=== PATIENT | male | born 1940 | race Caucasian/White ===

== ENCOUNTER → 2019-10-06 08:16 | Outpatient (BNVA) | payer MEDICARE, MEDICAID, SELFPAY | PROVIDERS: Family Provider Nurse Practitioner Family; PCP Nurse Practitioner Family; Visit Provider Nurse Practitioner | DX: M54.5 Low back pain (principal); G25.81 Restless legs syndrome; Z79.891 Long term (current) use of opiate analgesic | CPT/HCPCS: 99213 ==

== ENCOUNTER → 2019-10-09 08:43 | Outpatient (BNVA) | payer MEDICARE, MEDICAID, SELFPAY | PROVIDERS: Family Provider Nurse Practitioner Family; PCP Nurse Practitioner Family; Visit Provider Urology | DX: N40.1 Benign prostatic hyperplasia with lower urinary tract symptoms (principal); R39.14 Feeling of incomplete bladder emptying | CPT/HCPCS: 81001 ==

== ENCOUNTER 2019-10-19 10:20 | Outpatient (RCR) | payer MEDICARE, MEDICAID, SELFPAY | END 2019-10-27 23:59 | disposition home or self-care (01) | LOC: SPT 10:20 | PROVIDERS: Family Provider Nurse Practitioner Family; PCP Nurse Practitioner Family; Visit Provider Chiropractor | DX: M54.5 Low back pain (principal) | CPT/HCPCS: 97110; 97162 ==

== ENCOUNTER 2019-10-28 06:00 | Outpatient (RCR) | payer MEDICARE, MEDICAID, SELFPAY | END 2019-11-25 23:59 | disposition home or self-care (01) | LOC: SPT 06:00 | PROVIDERS: Family Provider Nurse Practitioner Family; PCP Nurse Practitioner Family; Visit Provider Chiropractor | DX: M54.5 Low back pain (principal) | CPT/HCPCS: 97110 ==

== ENCOUNTER → 2019-11-27 09:33 | Outpatient (BNVA) | payer MEDICARE, MEDICAID, SELFPAY | PROVIDERS: Family Provider Nurse Practitioner Family; PCP Nurse Practitioner Family; Visit Provider Nurse Practitioner Family | DX: Z79.01 Long term (current) use of anticoagulants (principal); E11.9 Type 2 diabetes mellitus without complications | CPT/HCPCS: 80048; 82044; 83036; 85025 ==

== ENCOUNTER → 2019-12-01 09:22 | Outpatient (BNVA) | payer MEDICARE, MEDICAID, SELFPAY | PROVIDERS: Family Provider Nurse Practitioner Family; PCP Nurse Practitioner Family; Visit Provider Anesthesiology | DX: G89.29 Other chronic pain (principal); M47.819 Spondylosis without myelopathy or radiculopathy, site unspecified; M51.36 Other intervertebral disc degeneration, lumbar region; M47.22 Other spondylosis with radiculopathy, cervical region; G25.81 Restless legs syndrome; Z79.891 Long term (current) use of opiate analgesic | CPT/HCPCS: 99214 ==

== ENCOUNTER → 2020-04-10 08:40 | Outpatient (BNVA) | payer MEDICARE, MEDICAID, SELFPAY | PROVIDERS: Family Provider Nurse Practitioner Family; PCP Nurse Practitioner Family; Visit Provider Anesthesiology | DX: G89.29 Other chronic pain (principal); M51.36 Other intervertebral disc degeneration, lumbar region; M47.819 Spondylosis without myelopathy or radiculopathy, site unspecified; G25.81 Restless legs syndrome; M47.22 Other spondylosis with radiculopathy, cervical region; Z79.891 Long term (current) use of opiate analgesic | CPT/HCPCS: 99214 ==

== ENCOUNTER → 2020-05-14 09:31 | Outpatient (BNVA) | payer MEDICARE, MEDICAID, SELFPAY | PROVIDERS: Family Provider Nurse Practitioner Family; PCP Nurse Practitioner Family; Visit Provider Nurse Practitioner Family | DX: E11.22 Type 2 diabetes mellitus with diabetic chronic kidney disease (principal); I12.9 Hypertensive chronic kidney disease with stage 1 through stage 4 chronic kidney disease, or unspecified chronic kidney disease; N18.9 Chronic kidney disease, unspecified; Z79.899 Other long term (current) drug therapy | CPT/HCPCS: 80053; 82043; 83036 ==

== ENCOUNTER → 2020-07-29 08:24 | Outpatient (BNVA) | payer MEDICARE, MEDICAID, SELFPAY | PROVIDERS: Family Provider Nurse Practitioner Family; PCP Nurse Practitioner Family; Visit Provider Nurse Practitioner Family | DX: E11.22 Type 2 diabetes mellitus with diabetic chronic kidney disease (principal); I12.9 Hypertensive chronic kidney disease with stage 1 through stage 4 chronic kidney disease, or unspecified chronic kidney disease; N18.9 Chronic kidney disease, unspecified | CPT/HCPCS: 80048; 80061 ==

== ENCOUNTER → 2020-10-09 11:54 | Outpatient (BNVA) | payer MEDICARE, MEDICAID, SELFPAY | PROVIDERS: Family Provider Nurse Practitioner Family; PCP Nurse Practitioner Family; Visit Provider Nurse Practitioner Family | DX: I10 Essential (primary) hypertension (principal); Z79.899 Other long term (current) drug therapy | CPT/HCPCS: 80048; 81003; 83036 ==

== ENCOUNTER → 2021-06-17 00:01 | Outpatient (BNVA) | payer MEDICARE, MEDICAID, SELFPAY | PROVIDERS: Family Provider Nurse Practitioner Family; PCP Nurse Practitioner Family; Visit Provider Nurse Practitioner Family | DX: E11.9 Type 2 diabetes mellitus without complications (principal); Z86.31 Personal history of diabetic foot ulcer | CPT/HCPCS: 80053; 80061; 83036; 85025 ==

== ENCOUNTER → 2021-11-25 10:00 | Outpatient (BNVA) | payer MEDICARE, MEDICAID, SELFPAY | PROVIDERS: Family Provider Nurse Practitioner Family; PCP Nurse Practitioner Family; Visit Provider Internal Medicine Cardiovascular Disease | DX: E11.22 Type 2 diabetes mellitus with diabetic chronic kidney disease (principal); I12.9 Hypertensive chronic kidney disease with stage 1 through stage 4 chronic kidney disease, or unspecified chronic kidney disease; Z95.0 Presence of cardiac pacemaker; E78.2 Mixed hyperlipidemia; I48.11 Longstanding persistent atrial fibrillation | CPT/HCPCS: 99214 ==

== ENCOUNTER → 2021-12-08 08:35 | Outpatient (BNVA) | payer MEDICARE, MEDICAID, SELFPAY | PROVIDERS: Family Provider Nurse Practitioner Family; PCP Nurse Practitioner Family; Visit Provider Nurse Practitioner Family | DX: I10 Essential (primary) hypertension (principal); R53.83 Other fatigue; R05.3 Chronic cough; N40.1 Benign prostatic hyperplasia with lower urinary tract symptoms; E11.51 Type 2 diabetes mellitus with diabetic peripheral angiopathy without gangrene; E11.65 Type 2 diabetes mellitus with hyperglycemia; G47.34 Idiopathic sleep related nonobstructive alveolar hypoventilation; G47.33 Obstructive sleep apnea (adult) (pediatric) | CPT/HCPCS: 80053; 83036; 85025 ==

== ENCOUNTER 2022-01-25 14:01 | Emergency (ER) | payer MEDICARE, MEDICAID, SELFPAY ==
[2022-01-25] VITALS (7 sets, daily range): BP systolic 148–180; BP diastolic 51–100; PULSE 84–94; RESP 14–18; TEMP 36.6; O2SAT 95–97; BMI 30.9
--- NOTE | 2022-01-25 14:04 | ED_ITS ---
HPI - General Adult General: Chief complaint: Chest Pain Stated complaint: GENERAL UNWELLNESS Time Seen by Provider: 01/25/22 14:03 History of Present Illness: Mr. Casey is an 81-year-old gentleman with significant past medical history of hypertension, hyperlipidemia, atrial fibrillation, diabetes, pacemaker who presents to the emergency department due to generalized symptoms. Onset of symptoms was subacute approximately 10 days ago. He endorses generalized unwell feeling and generalized weakness. Additionally he has had multiple episodes of loose stools and poor p.o. intake. He has had progressive worsening of symptoms that are now moderate to severe. He does note that he started metformin 2 or 3 weeks ago. Today he had an episode of chest discomfort after eating and laying down which was substernal and then now mild with generalized ache/pressure. No other specific changes in health, exacerbating, or alleviating factors identified. Onset (ago): day(s) Severity: moderate and severe Quality: aching Associated symptoms: Reports chest pain Review of Systems General: Reports: 10 or more systems reviewed and unremarkable except in HPI and below Card: Reports: chest pain [facility] ED PFSH: Medical History Atrial fibrillation Benign prostatic hyperplasia with incomplete bladder emptying Chronic cervical radiculopathy Chronic low back pain Chronic lumbar radiculopathy DDD (degenerative disc disease), lumbar Dizziness Encounter for long-term opiate analgesic use Encounter for long-term opiate analgesic use Facet joint disease Fibromyalgia Hx of diabetic foot ulcer Hyperlipidemia Hypertension Long-term use of high-risk medication continue to monitor use Pacemaker Restless legs syndrome Type 2 DM with CKD and hypertension Uncontrolled type 2 DM with peripheral circulatory disorder Surgical History History of permanent cardiac pacemaker placement History of umbilical hernia repair S/P cardiac pacemaker procedure S/P laser cataract surgery 2 YEARS AGO BILAT Family History Father , 80-house fire No problems noted. Mother , 70 Cancer Brother Cancer Lung disease Chronic kidney disease (CKD) Sister Cancer CAD (coronary artery disease) Diabetes Daughter Diabetes Family/Other Diabetes Denies family history of Clotting disorder Dementia Suicide Anesthesia complication Bleeding disorder Stroke Social History Smoking and tobacco status: never smoked Second hand smoke exposure: No Alcohol intake: never Marital status: / Current occupational status: retired History of recent travel: No Physical Exam Const: COMMON NORMALS: alert GENERAL APPEARANCE: cooperative, well developed and ill appearing (Somewhat) HENMT: COMMON NORMALS: normocephalic and atraumatic HEAD & SCALP: normoceph alic and atraumatic Eye: COMMON NORMALS: conjunctivae normal CONJUNCTIVA: Yes conjunctivae normal SCLERA: sclerae normal Neck/C-Spine: COMMON NORMALS: supple GENERAL: Yes trachea midline Resp: COMMON NORMALS: clear to auscultation bilaterally EFFORT & INSPECTION: Yes able to speak in complete sentences AUSCULTATION: clear to auscultation bilaterally Cardio: COMMON NORMALS: regular rate and regular rhythm RATE: regular rate RHYTHM: regular rhythm GI: COMMON NORMALS: Soft to palpation PALPATION: Yes Soft to palpation, Yes Tenderness to palpation present (GI), No Guarding due to palpation present (GI) and No Rigid due to palpation PERCUSSION: normal to percussion Extremity: GENERAL: Yes normal exam except as noted and No edema Neuro: COMMON NORMALS: moves all extremities SENSORIUM/ORIENTATION: Yes alert and No Orientation impaired Psych: COMMON NORMALS: mental status grossly normal and Normal thought process present THOUGHT PROCESS: Normal thought process present Course ED course: - Patient was seen and evaluated by me at bedside - Patient placed on cardiac monitors, IV access obtained - Initial evaluation notable for exam as above. EKG reviewed with sinus rhythm, first-degree AV block, no STEMI. - Labs and xrays personally interpreted by me -Fluids given - Labs notable for mild leukocytosis, likely hemoconcentration/dehydration. Elevated glucose without evidence of DKA. Delta troponin negative. - Imaging notable for no lobar consolidation or pneumothorax. Head CT negative for acute intracranial hemorrhage or mass. CT abdomen pelvis with mild lymphadenopathy, discussed with patient. No evidence of obvious cause of patient's other symptoms. - Upon serial reexamination after treatment the patient was improved. He tolerated p.o. intake. - Based on patient history, evaluation, and testing as interpreted the most likely cause of the patient's condition is unclear. Given temporal correlation and may be related to initiation of metformin as GI symptoms are a common side effect. We will plan to hold for now and refer to primary care provider for additional consideration, patient instructed to continue his other oral diabetic medications - The results of ED evaluation were discussed with the patient including prescriptions and/or symptomatic cares (if applicable) including appropriate and responsible use, followup plan, and return precautions. The patient verbalized understanding and felt safe for discharge. - Patient discharged in satisfactory condition. Note: Click bubbles or prepopulated brantley in note writing are used for assistance with data collection and billing and are inherently more limited than narrative and other text portions of this note. Please use narrative for additional clinical history and defer to narrative/free test for any case of contradictory information. If information appears in only free text or click bubble it should be considered present or absent as reported. Please contact note investigative writer for clarifications of clinical information or contradictory information. MDM is a brief summary, contradictory or erroneous seeming information should be clarified and full note should be reviewed. Vital Signs: Vital signs: Vital Signs Temperature 98 F 01/25/22 16:43 Pulse Rate 91 01/25/22 19:13 Respiratory Rate 17 01/25/22 19:13 Blood Pressure 160/100 01/25/22 19:13 Pulse Oximetry 96 01/25/22 19:13 MDM - General Adult Medical Decision Making 81-year-old gentleman with complex past medical history presenting to the emergency department due to recurrent diarrhea and abdominal discomfort with radiation to the chest. Temporally correlates with initiation of metformin. Mild dehydration noted on laboratory studies with no other acute process to explain symptoms. Satisfactory for close outpatient follow-up. Medical Records I reviewed the patient's medical records. Lab Data I reviewed the patient's lab results. : 01/25/22 14:05 01/25/22 14:05 Radiology Impressions Chest X-Ray 01/25/22 14:17 IMPRESSION: No acute cardiopulmonary abnormality identified. Abdomen/Pelvis CT 01/25/22 15:23 IMPRESSION: 1. Nonspecific central mesenteric lymphadenopathy, largest lymph node measuring 2.1 cm short axis. Differential diagnosis includes neoplastic and infectious/inflammatory etiologies. Comparison with prior studies recommended, if available. Clinical correlation is recommended. 2. Bilateral inguinal hernias. 3. Left renal benign cyst. No follow-up imaging is recommended. 4. Chronic calcific prostatitis. 5. Possible pulmonary interstitial fibrosis. COMMENTS: Consistent with the [employer]'s Incidental Findings Committee white paper (J Am Natalia Radiol 2018): Any incidental renal lesion less than 1 cm or classified as too small to characterize, or any incidental cystic renal lesion characterized as simple-appearing, is likely benign. No follow-up imaging is recommended for these lesions per consensus recommendations based on imaging criteria. Head CT 01/25/22 15:23 IMPRESSION: No acute intracranial abnormality. Laboratory Results WBC 10.9 10^3/uL (4.0-10.0) H 01/25/22 14:05 RBC 5.01 10^6/uL (4.1-5.3) 01/25/22 14:05 Hgb 14.9 g/dL (11.7-16.6) 01/25/22 14:05 Hct 44.3 % (42.0-52.0) 01/25/22 14:05 MCV 88.4 fl (80-94) 01/25/22 14:05 MCH 29.7 pg (28.0-34.0) 01/25/22 14:05 MCHC 33.6 g/dL (30.0-36.0) 01/25/22 14:05 RDW 12.7 % (12.1-15.1) 01/25/22 14:05 Plt Count 309 10^3/cmm (130-400) 01/25/22 14:05 MPV 10.5 fL (7.4-10.4) H 01/25/22 14:05 Neut % (Auto) 68.1 % 01/25/22 14:05 Lymph % (Auto) 20.3 % 01/25/22 14:05 Mcdonald % (Auto) 7.3 % 01/25/22 14:05 Eos % (Auto) 3.1 % 01/25/22 14:05 Baso % (Auto) 0.9 % 01/25/22 14:05 Neut # (Auto) 7.42 10^3/uL (1.8-7.7) 01/25/22 14:05 Lymph # (Auto) 2.2 10^3/uL (0.8-4.8) 01/25/22 14:05 Mcdonald # (Auto) 0.8 10^3/uL (0.2-0.9) 01/25/22 14:05 Eos # (Auto) 0.3 10^3/uL (0.0-0.8) 01/25/22 14:05 Baso # (Auto) 0.1 10^3/uL (0.0-0.1) 01/25/22 14:05 Nucleated RBC % (auto) 0 % 01/25/22 14:05 Nucleated RBCs # 0.0 /100WBC 01/25/22 14:05 Sodium 133 mmol/L (136-145) L 01/25/22 14:05 Potassium 4.2 mmol/L (3.5-5.1) 01/25/22 14:05 Chloride 98 mmol/L (98-107) 01/25/22 14:05 Carbon Dioxide 22 mmol/L (22-29) 01/25/22 14:05 Anion Gap 17.2 (5-19) 01/25/22 14:05 BUN 11 mg/dL (8-23) 01/25/22 14:05 Creatinine 1.2 mg/dL (0.7-1.2) 01/25/22 14:05 GFR Calculation Not Reportable 01/25/22 14:05 Glucose 356 mg/dL (65-115) H 01/25/22 14:05 POC Glucose 342 mg/dL (70-110) H 01/25/22 14:11 Calculated Osmolality 290 mOsm/kg (285-295) 01/25/22 14:05 Lactic Acid 1.8 mmol/L (0.5-2.2) 01/25/22 15:25 Calcium 8.2 mg/dL (8.5-10.5) L 01/25/22 14:05 Total Bilirubin 0.5 mg/dL (0.15-1.2) 01/25/22 14:05 AST 28 U/L (0-40) 01/25/22 14:05 ALT 26 U/L (0-41) 01/25/22 14:05 Alkaline Phosphatase 101 IU/L (40-130) 01/25/22 14:05 Troponin T Baseline 32 ng/L (0-15) H 01/25/22 14:05 Troponin T 120 Minute 26.25 ng/L (0-15) H 01/25/22 16:00 Delta Troponin T -5.75 ABS# (0-10) L 01/25/22 16:00 NT-Pro-B Natriuret Pep 142 pg/mL (0-450) 01/25/22 14:05 Total Protein 6.6 g/dL (6.6-8.7) 01/25/22 14:05 Albumin 4.3 g/dL (3.5-5.2) 01/25/22 14:05 Globulin 2.3 g/dL (1.3-4.6) 01/25/22 14:05 Lipase 27 U/L (13-60) 01/25/22 14:05 Urine Color Straw (Yellow) 01/25/22 17:00 Urine Appearance Clear (CLEAR) 01/25/22 17:00 Urine pH 7 (5-7) 01/25/22 17:00 Ur Specific [place] 1.010 (1.005-1.030) 01/25/22 17:00 Urine Protein Neg (Negative) 01/25/22 17:00 Urine Glucose (UA) 4+ (Normal) H 01/25/22 17:00 Urine Ketones Negative (Negative) 01/25/22 17:00 Urine Blood Neg (Negative) 01/25/22 17:00 Urine Nitrate Negative (Negative) 01/25/22 17:00 Urine Bilirubin Neg (Negative) 01/25/22 17:00 Urine Urobilinogen Norm mg/dL (Negative) 01/25/22 17:00 Ur Leukocyte Esterase Negative (Negative) 01/25/22 17:00 Coronavirus 229E (PCR) Not detected (NOT DETECT) 01/25/22 17:07 SARS-CoV-2 (PCR) Not detected (NOT DETECT) 01/25/22 17:07 Discharge Plan Discharge Patient Disposition: Home Clinical Impression: Malaise and fatigue, Chest pain, Diarrhea Condition: Stable Prescriptions: No Action tamsulosin [Flomax] 0.4 mg capsule 0.4 mg PO DAILY Qty: 30 12RF (DME) True Metrix Glucose Test Strip Strip See Rx Instructions .ROUTE .MEDSUPPLY Qty: 100 0RF Rx Instructions: test once daily nitroglycerin [Nitrostat] 0.4 mg tablet, sublingual 0.4 mg SUBLINGUAL Q5M PRN (Reason: chest pain) Qty: 50 2RF amlodipine 10 mg tablet 10 mg PO DAILY Qty: 100 3RF Rx Instructions: Dose increased hydralazine 50 mg tablet 50 mg PO BID Qty: 60 5RF Xarelto 20 mg tablet 20 mg PO DAILY Qty: 90 3RF pantoprazole 40 mg tablet,delayed release (DR/EC) See Rx Instructions .ROUTE .COMPLEX Qty: 90 0RF Dose Instruction: Take 1 tablet by mouth once daily Rx Instructions: Take 1 tablet by mouth once daily carbidopa-levodopa 25-250 mg tablet 1 tab PO DAILY 0RF isosorbide mononitrate 120 mg tablet extended release 24 hr 120 mg PO DAILY 0RF glimepiride 4 mg tablet 8 mg PO DAILY 0RF Discharge Orders: Discharge ED (Routine); Ordered 01/25/22 Ordered By: Biju Topete Referrals: Lucy Ny FNP [Primary Care Provider] - Discharge Diet: Advance as tolerated Discharge Activity: Increase activity as tolerated Patient Instructions: Diarrhea - Adult, Chest Pain (ED), Abdominal Pain (ED), Fatigue (ED) Activity Restrictions/Additional Instructions: Thank you for visiting the emergency department. You were seen and evaluated for generalized weakness and unwell feeling. The exact cause of your symptoms i s unclear. It is possible that you have are having GI symptoms related to a side effect of metformin. Please do not take this medication and call your primary care provider in the morning for further medication adjustment. Please follow-up with your primary care provider regarding your other symptoms. Return to the emergency department for worsening symptoms or anything else that you are concerned about and feel needs emergency department evaluation. Coding Level of Care Code ED Gauge Controller for Guerrero Menchaca
[2022-01-25 14:14] LABS: Glucose Point of Care 342 mg/dL (70-110)
--- NOTE | 2022-01-25 14:17 | XRR_ITS ---
PROCEDURE INFORMATION: Exam: XR Chest Exam date and time: 01/25/2022 2:28 PM Age: 81 years old Clinical indication: Pain; Chest pressure; Additional info: Chest pain TECHNIQUE: Imaging protocol: XR of the chest. Views: 1 view. Other technique: Frontal portable upright view of the chest. COMPARISON: CR Chest 2 views* [id number] 10/04/2017 10:13 AM FINDINGS: Tubes, catheters and devices: A dual lead left subclavian permanent pacemaker is present. The right atrial and right ventricular leads appear to be in good position. EKG leads are present overlying the chest. Lungs: The lungs are clear bilaterally. The pulmonary vasculature is normal. Pleural spaces: No pleural effusion. No pneumothorax. Heart/Mediastinum: The heart is normal in size and contour. Mediastinum: Stable. Bones/joints: Stable. XR/XR chest 1V portable [id number] IMPRESSION: No acute cardiopulmonary abnormality identified.
[2022-01-25 14:41] LABS: Basophils # 0.1 10^3/uL (0.0-0.1); Basophils % 0.9 %; Eosinophils # 0.3 10^3/uL (0.0-0.8); Eosinophils % 3.1 %; Hematocrit 44.3 % (42.0-52.0); Hemoglobin 14.9 g/dL (11.7-16.6); Lymphocytes # 2.2 10^3/uL (0.8-4.8); Lymphocytes % 20.3 %; Mean Corpuscular HGB Conc 33.6 g/dL (30.0-36.0); Mean Corpuscular Hemoglobin 29.7 pg (28.0-34.0); Mean Corpuscular Volume 88.4 fl (80-94); Mean Platelet Volume 10.5 fL (7.4-10.4); Monocytes # 0.8 10^3/uL (0.2-0.9); Monocytes % 7.3 %; Neutrophils # 7.42 10^3/uL (1.8-7.7); Neutrophils % 68.1 %; Nucleated Red Blood Cells % 0 %; Platelet Count 309 10^3/cmm (130-400); Red Blood Count 5.01 10^6/uL (4.1-5.3); Red Cell Distribution Width 12.7 % (12.1-15.1); White Blood Count 10.9 10^3/uL (4.0-10.0)
[2022-01-25 14:53] LABS: Troponin(5th) Baseline 32 ng/L (0-15)
[2022-01-25 15:00] LABS: Alanine Aminotransferase 26 U/L (0-41); Albumin Level 4.3 g/dL (3.5-5.2); Alkaline Phosphatase 101 IU/L (40-130); Aspartate Amino Transferase 28 U/L (0-40); Blood Urea Nitrogen 11 mg/dL (8-23); Calcium 8.2 mg/dL (8.5-10.5); Carbon Dioxide 22 mmol/L (22-29); Chloride 98 mmol/L (98-107); Globulin 2.3 g/dL (1.3-4.6); Glucose 356 mg/dL (65-115); Lipase 27 U/L (13-60); NT Pro B Type Natriuretic Pept 142 pg/mL (0-450); Osmolality Calculated 290 mOsm/kg (285-295); Sodium 133 mmol/L (136-145); Total Bilirubin 0.5 mg/dL (0.15-1.2); Total Protein 6.6 g/dL (6.6-8.7)
[2022-01-25 15:21] LABS: Anion Gap 17.2 (5-19); Potassium 4.2 mmol/L (3.5-5.1)
--- NOTE | 2022-01-25 15:23 | CTR_ITS ---
PROCEDURE INFORMATION: Exam: CT Abdomen And Pelvis With Contrast Exam date and time: 01/25/2022 3:49 PM Age: 81 years old Clinical indication: Other: N/v/d; Prior surgery; Surgery type: Hernia TECHNIQUE: Imaging protocol: Computed tomography of the abdomen and pelvis with contrast. Radiation optimization: All CT scans at this facility use at least one of these dose optimization techniques: automated exposure control; mA and/or kV adjustment per patient size (includes targeted exams where dose is matched to clinical indication); or iterative reconstruction. Contrast material: VISI 320; Contrast volume: 95 ml; Contrast route: INTRAVENOUS (IV); COMPARISON: CR Hips Angel 5v wwo Pelvis* [id number] 10/04/2015 9:58 AM RADIATION DOSE METRICS: Total DLP (mGy-cm): 1890.63 FINDINGS: Tubes, catheters and devices: A dual lead pacemaker is present. Lungs: Peripheral pulmonary basilar interlobular septal thickening with architectural distortion and mild cicatricial bronchiectasis. Liver: Normal. No mass. Gallbladder and bile ducts: Normal. No calcified stones. No ductal dilation. Pancreas: Moderate pancreatic atrophy. Spleen: Normal. No splenomegaly. Adrenal glands: Normal. No mass. Kidneys and ureters: Left renal 15.8 mm benign cyst. Stomach and bowel: Unremarkable. No obstruction. No mucosal thickening. Appendix: The vermiform appendix is not identified on this examination. There is, however, no pericecal abnormality to suggest appendicitis. Intraperitoneal space: No free air. No significant fluid collection. Vasculature: Moderate abdominal aortic atherosclerotic calcification without aneurysm. The iliac arteries show mild bilateral atherosclerotic calcifications without evidence of aneurysm. Lymph nodes: Nonspecific central mesenteric lymphadenopathy, largest lymph node measuring 2.1 cm short axis. Urinary bladder: Unremarkable as visualized. Reproductive: The prostate gland demonstrates nonspecific parenchymal calcifications. Bones/joints: Degenerative disc disease at lower lumbar spine disk levels, with mild dextroscoliosis. L5-S1 spondylosis with bilateral neural foraminal stenosis. Bilateral lower lumbar facet primary osteoarthritis. Severe L3-L4 spinal stenosis. Mild chronic anterior L4 vertebral body compression deformity. Soft tissues: Bilateral inguinal hernias, larger on the left (3.6 x 5.1 cm transverse dimension, incompletely imaged inferiorly), are present containing only intra-abdominal fat. CT/CT abdomen pelvis w con* [id number] IMPRESSION: 1. Nonspecific central mesenteric lymphadenopathy, largest lymph node measuring 2.1 cm short axis. Differential diagnosis includes neoplastic and infectious/inflammatory etiologies. Comparison with prior studies recommended, if available. Clinical correlation is recommended. 2. Bilateral inguinal hernias. 3. Left renal benign cyst. No follow-up imaging is recommended. 4. Chronic calcific prostatitis. 5. Possible pulmonary interstitial fibrosis. COMMENTS: Consistent with the [place] [employer]'s Incidental Findings Committee white paper (J Am Natalia Radiol 2018): Any incidental renal lesion less than 1 cm or classified as too small to characterize, or any incidental cystic renal lesion characterized as simple-appearing, is likely benign. No follow-up imaging is recommended for these lesions per consensus recommendations based on imaging criteria.
--- NOTE | 2022-01-25 15:23 | CTR_ITS ---
PROCEDURE INFORMATION: Exam: CT Head Without Contrast Exam date and time: 01/25/2022 3:45 PM Age: 81 years old Clinical indication: Altered mental status/memory loss; Confusion or disorientation; Patient HX: Ams/light headed; Additional info: Weakness, lightheaded, ? confusion TECHNIQUE: Imaging protocol: Computed tomography of the head without contrast. Radiation optimization: All CT scans at this facility use at least one of these dose optimization techniques: automated exposure control; mA and/or kV adjustment per patient size (includes targeted exams where dose is matched to clinical indication); or iterative reconstruction. COMPARISON: CT head wo con* [id number] 04/06/2015 10:09 PM RADIATION DOSE METRICS: Total DLP (mGy-cm): 949.5 FINDINGS: Brain: Age-appropriate cerebral atrophy. Ventricles: No hydrocephalus or evidence of increased intracranial pressure. Leftward nasal septal deviation. Paranasal sinuses: Visualized sinuses are unremarkable. No fluid levels. Mastoid air cells: Visualized mastoid air cells are well aerated. Orbital cavities: Bilateral prior cataract surgery with lens replacements. Vasculature: Atherosclerotic calcifications are present involving the carotid artery siphons bilaterally and the left vertebral artery. Bones/joints: No acute abnormality. No acute fracture. Soft tissues: Unremarkable. CT/CT head wo con* [id number] IMPRESSION: No acute intracranial abnormality.
[2022-01-25] MEDS: iodixanol 320 mg/mL 100mL Btl IV (15:46)
[2022-01-25 15:55] LABS: Lactic Sepsis W/Reflex 1.8 mmol/L (0.5-2.2)
--- NOTE | 2022-01-25 16:17 | ECG_ITS ---
[facility] Test Date: 2022-01-25 Pat Name: Timothy Casey Department: Room: Gender: Male Stogy Maker: : 1940 Requested By: Biju Topete Order Number: [id number] Alberto MD: Jaison Dunacn M.D. Measurements Intervals [place] Rate: 94 P: 60 TX: 222 QRS: 76 QRSD: 114 T: 53 QT: 357 QTc: 447 Interpretive Statements SINUS RHYTHM WITH FIRST DEGREE AV BLOCK MODERATE INTRAVENTRICULAR CONDUCTION DELAY [110+ ms QRS DURATION] NONSPECIFIC T-WAVE ABNORMALITY Compared to ECG 10/02/2017 19:27:28 First degree AV block now present Intraventricular conduction delay now present T-wave abnormality now present Electronically Signed On 01-25-2022 18:08:05 CDT by Jaison Duncan M.D. [id number]
[2022-01-25 16:39] LABS: Troponin 5 2HR 26.25 ng/L (0-15)
[2022-01-25 16:40] LABS: Troponin 5 2HR Delta -5.75 ABS# (0-10)
[2022-01-25] MEDS: sodium chloride 0.9% 1,000 ML 999 ML IV (16:45)
[2022-01-25 17:04] LABS: Add Urine Microscopic? NO; Charge for UA Resulting for Rev
[2022-01-25 17:10] LABS: Bilirubin Urine Neg (Negative); Blood Urine Neg (Negative); Glucose Urine UA 4+ (Normal); Ketones Urine Negative (Negative); Leukocyte Esterase Urine Negative (Negative); Nitrate Urine Negative (Negative); Protein Urine Neg (Negative); Urine Appearance Clear (CLEAR); Urine Color Straw (Yellow); Urobilinogen Urine Norm (Negative); pH Urine 7 (5-7)
[2022-01-25 18:53] LABS: Adenovirus Not Detected (NOT DETECT); Chlamydia Pneumoniae Not Detected (NOT DETECT); Coronavirus 229E,HKU1,NL63,OC4 Not Detected (NOT DETECT); Human Metapneumovirus Not Detected (NOT DETECT); Human Rhinovirus/Enterovirus Not Detected (NOT DETECT); Influenza A Not Detected (NOT DETECT); Influenza A H1 Not Detected (NOT DETECT); Influenza A H1-2009 Not Detected (NOT DETECT); Influenza A H3 Not Detected (NOT DETECT); Influenza B Not Detected (NOT DETECT); Mycoplasma Pneumoniae Not Detected (NOT DETECT); Parainfluenza Virus Type 1 Not Detected (NOT DETECT); Parainfluenza Virus Type 2 Not Detected (NOT DETECT); Parainfluenza Virus Type 3 Not Detected (NOT DETECT); Parainfluenza Virus Type 4 Not Detected (NOT DETECT); Respiratory Syncytial Virus A Not Detected (NOT DETECT); Respiratory Syncytial Virus B Not Detected (NOT DETECT); SARS-COV-2 Not Detected (NOT DETECT)
--- NOTE | 2022-01-25 20:17 | ECG_ITS ---
[facility] Test Date: 2022-01-25 Pat Name: Timothy Casey Department: Room: Gender: Male Commodities Manager: : 1940 Requested By: Biju Topete Order Number: [id number] Alberto MD: Jaison Duncan M.D. Measurements Intervals [place] Rate: 81 P: 75 SD: 224 QRS: 87 QRSD: 108 T: 90 QT: 381 QTc: 443 Interpretive Statements SINUS RHYTHM WITH SINUS ARRHYTHMIA WITH FIRST DEGREE AV BLOCK NONSPECIFIC T-WAVE ABNORMALITY Compared to ECG 01/25/2022 14:43:23 Intraventricular conduction delay no longer present T-wave abnormality still present Electronically Signed On 01-26-2022 16:33:55 CDT by Jaison Duncan M.D. [email or web address] [id number]
== END 2022-01-25 19:13 | disposition home or self-care (01) ==
PROVIDERS: Emergency Provider Emergency Medicine; PCP Nurse Practitioner Family
DX: R07.9 Chest pain, unspecified (principal); R19.7 Diarrhea, unspecified; R53.81 Other malaise; R53.83 Other fatigue; E78.5 Hyperlipidemia, unspecified; I12.9 Hypertensive chronic kidney disease with stage 1 through stage 4 chronic kidney disease, or unspecified chronic kidney disease; E11.22 Type 2 diabetes mellitus with diabetic chronic kidney disease; N18.9 Chronic kidney disease, unspecified; I48.91 Unspecified atrial fibrillation; Z79.899 Other long term (current) drug therapy; Z95.0 Presence of cardiac pacemaker
CPT/HCPCS: 36416; 70450; 71045; 74177; 80053; 81003; 82962; 83605; 83690; 83880; 84484; 85025; 87040; 87635; 93005; 96360; 99284; J7030; Q9967

== ENCOUNTER → 2022-01-29 11:38 | Outpatient (BNVA) | payer MEDICARE, MEDICAID, SELFPAY | PROVIDERS: PCP Nurse Practitioner Family; Visit Provider Nurse Practitioner Family | DX: E11.22 Type 2 diabetes mellitus with diabetic chronic kidney disease (principal); I12.9 Hypertensive chronic kidney disease with stage 1 through stage 4 chronic kidney disease, or unspecified chronic kidney disease; E11.51 Type 2 diabetes mellitus with diabetic peripheral angiopathy without gangrene; E11.65 Type 2 diabetes mellitus with hyperglycemia | CPT/HCPCS: 82962 ==

== ENCOUNTER → 2022-02-16 11:36 | Outpatient (BNVA) | payer MEDICARE, MEDICAID, SELFPAY | PROVIDERS: PCP Nurse Practitioner Family; Visit Provider Nurse Practitioner Family | DX: I10 Essential (primary) hypertension (principal); D72.829 Elevated white blood cell count, unspecified; E11.51 Type 2 diabetes mellitus with diabetic peripheral angiopathy without gangrene; E11.65 Type 2 diabetes mellitus with hyperglycemia | CPT/HCPCS: 80053; 85025 ==

== ENCOUNTER → 2022-03-05 17:10 | Outpatient (BNVA) | payer MEDICARE, MEDICAID, SELFPAY | PROVIDERS: PCP Nurse Practitioner Family; Visit Provider Internal Medicine Cardiovascular Disease | DX: Z45.010 Encounter for checking and testing of cardiac pacemaker pulse generator [battery] (principal) ==

== ENCOUNTER → 2022-04-01 11:01 | Outpatient (BNVA) | payer MEDICARE, MEDICAID, SELFPAY | PROVIDERS: PCP Nurse Practitioner Family; Visit Provider Nurse Practitioner Family | DX: E11.22 Type 2 diabetes mellitus with diabetic chronic kidney disease (principal); I12.9 Hypertensive chronic kidney disease with stage 1 through stage 4 chronic kidney disease, or unspecified chronic kidney disease; E11.51 Type 2 diabetes mellitus with diabetic peripheral angiopathy without gangrene; E11.65 Type 2 diabetes mellitus with hyperglycemia | CPT/HCPCS: 83036 ==

== ENCOUNTER → 2022-05-26 09:39 | Outpatient (BNVA) | payer MEDICARE, MEDICAID, SELFPAY | PROVIDERS: PCP Nurse Practitioner Family; Visit Provider Internal Medicine Cardiovascular Disease | DX: I48.11 Longstanding persistent atrial fibrillation (principal); I12.9 Hypertensive chronic kidney disease with stage 1 through stage 4 chronic kidney disease, or unspecified chronic kidney disease; E11.22 Type 2 diabetes mellitus with diabetic chronic kidney disease; N18.9 Chronic kidney disease, unspecified; Z79.84 Long term (current) use of oral hypoglycemic drugs; Z95.0 Presence of cardiac pacemaker; E78.2 Mixed hyperlipidemia | CPT/HCPCS: 99214 ==

== ENCOUNTER → 2022-07-07 09:57 | Outpatient (BNVA) | payer MEDICARE, MEDICAID, SELFPAY | PROVIDERS: PCP Nurse Practitioner Family; Visit Provider Nurse Practitioner Family | DX: E11.22 Type 2 diabetes mellitus with diabetic chronic kidney disease (principal); I12.9 Hypertensive chronic kidney disease with stage 1 through stage 4 chronic kidney disease, or unspecified chronic kidney disease; Z79.01 Long term (current) use of anticoagulants; I10 Essential (primary) hypertension; E11.51 Type 2 diabetes mellitus with diabetic peripheral angiopathy without gangrene; E11.65 Type 2 diabetes mellitus with hyperglycemia | CPT/HCPCS: 80053; 83036; 85025 ==

== ENCOUNTER → 2022-07-16 10:15 | Outpatient (BNVA) | payer MEDICARE, MEDICAID, SELFPAY | PROVIDERS: PCP Nurse Practitioner Family; Visit Provider Nurse Practitioner Family | DX: E78.2 Mixed hyperlipidemia (principal); E11.51 Type 2 diabetes mellitus with diabetic peripheral angiopathy without gangrene; E11.65 Type 2 diabetes mellitus with hyperglycemia | CPT/HCPCS: 80061 ==

== ENCOUNTER → 2022-12-01 09:56 | Outpatient (BNVA) | payer MEDICARE, MEDICAID, SELFPAY | PROVIDERS: PCP Nurse Practitioner Family; Visit Provider Internal Medicine Cardiovascular Disease | DX: I48.11 Longstanding persistent atrial fibrillation (principal); E78.2 Mixed hyperlipidemia; Z95.0 Presence of cardiac pacemaker; I12.9 Hypertensive chronic kidney disease with stage 1 through stage 4 chronic kidney disease, or unspecified chronic kidney disease; N18.9 Chronic kidney disease, unspecified; Z79.84 Long term (current) use of oral hypoglycemic drugs; E11.22 Type 2 diabetes mellitus with diabetic chronic kidney disease; Z79.01 Long term (current) use of anticoagulants | CPT/HCPCS: 99214 ==

== ENCOUNTER → 2022-12-04 10:01 | Outpatient (BNVA) | payer MEDICARE, MEDICAID, SELFPAY | PROVIDERS: PCP Nurse Practitioner Family; Visit Provider Nurse Practitioner Family | DX: R06.02 Shortness of breath (principal); E78.5 Hyperlipidemia, unspecified; E78.2 Mixed hyperlipidemia; H61.20 Impacted cerumen, unspecified ear; R05.3 Chronic cough; I10 Essential (primary) hypertension | CPT/HCPCS: 80048; 80061; 80076; 83880 ==

== ENCOUNTER 2022-12-30 23:30 | Inpatient (IN) | payer MEDICARE, MEDICAID, SELFPAY ==
--- NOTE | 2022-12-30 23:31 | XRR_ITS ---
PROCEDURE INFORMATION: Exam: XR Chest Exam date and time: 12/30/2022 11:37 PM Age: 82 years old Clinical indication: Shortness of breath; Additional info: SOB TECHNIQUE: Imaging protocol: Radiologic exam of the chest. Views: 1 view. COMPARISON: CR XR chest 1V portable [id number] 01/25/2022 2:28 PM FINDINGS: Tubes, catheters and devices: Pacemaker. Lungs: Patchy bilateral ground-glass airspace opacities reflecting alveolar edema and/or bronchopneumonia. Pleural spaces: Unremarkable. No pleural effusion. No pneumothorax. Heart/Mediastinum: Cardiomegaly and pulmonary vascular congestion with interstitial edema. Bones/joints: Unremarkable. XR/XR chest 1V portable [id number] IMPRESSION: 1. Cardiomegaly and pulmonary vascular congestion with interstitial edema. 2. Patchy bilateral ground-glass airspace opacities reflecting alveolar edema and/or bronchopneumonia. 3. Pacemaker.
[2022-12-30 23:33] VITALS: BP 124/96; PULSE 110; RESP 24; TEMP 37.3; O2SAT 90; BMI 30.3
--- NOTE | 2022-12-30 23:48 | ECG_ITS ---
[facility] Test Date: 2022-12-30 Pat Name: Timothy Casey Department: Room: Gender: Male Group Manager: : 1940 Requested By: Ban Valentin Order Number: [id number] Alberto MD: Lisandro Mcgregor M.D. Measurements Intervals [place] Rate: 124 P: 0 WI: 0 QRS: 130 QRSD: 106 T: -35 QT: 296 QTc: 425 Interpretive Statements ATRIAL FLUTTER/TACHYCARDIA WITH RAPID VENTRICULAR RESPONSE WITH ABERRANT CONDUCTION OR VENTRICULAR PREMATURE COMPLEXES LEFT POSTERIOR FASCICULAR BLOCK [QRS AXIS > 109, INFERIOR Q] NONSPECIFIC ST & T-WAVE ABNORMALITY Compared to ECG 01/25/2022 18:13:57 Ventricular premature complex(es) now present Aberrant conduction of supraventricular beat(s) now present Left posterior fascicular block now present Sinus rhythm no longer present Sinus arrhythmia no longer present First degree AV block no longer present T-wave abnormality still present Electronically Signed On 12-31-2022 0:18:41 CDT by Lisandro Mcgregor M.D. [id number]
[2022-12-30 23:50] LABS: ABG PCO2 33.7 mmHg (35-45); ABG PH Result 7.39 (7.35-7.45); Arterial Blood Gas Hematocrit 37.7 % (42-52); Blood Gas Allen Test Pos; Blood Gas Sample Site Radial, right; Blood Gas Sample Type Arterial; Carboxyhemoglobin 1.6 %THgb (0.4-20.1); HCO3 ABG 20.3 mmol/L (22-26); HGB O2 Sat 91.1 % (95-100); Methemoglobin 0.2 % (0.4-1.5); Oxygen Device NC; PO2 ABG 63.3 mmHg (80.0-100.0); Total Hemoglobin 12.3 g/dL (14-18)
[2022-12-30 23:51] VITALS: BP 112/67; PULSE 109; RESP 20; O2SAT 90
--- NOTE | 2022-12-30 23:51 | ED_ITS ---
HPI - SOB/Dyspnea General: Chief Complaint: Shortness of Breath/Dyspnea Stated Complaint: SOB Time Seen by Provider: 12/30/22 23:31 Source: patient and EMS Mode of arrival: EMS Limitations: no limitations History of Present Illness: HPI Narrative: States [id number] male has had a fever along with not feeling well and cough over the last 4 to 5 days. States he got much worse today he is hypoxic here he is requiring 3 L oxygen he is given a breathing treatment in route he does have a history of A-fib he has a low-grade fever here he was given Cardizem in route to due to to A-fib with RVR. He is got a productive cough here denies any vomiting or diarrhea denies any chest pain. Associated symptoms: Reports fever(s); Deny abdominal pain, chest pain, nausea or vomiting Review of Systems Const: Reports: fever(s); Denies: chills, body aches or change in appetite Eyes: Denies: blurry vision or eye discomfort ENMT: Denies: throat pain or dental pain Card: Denies: chest pain Resp: Reports: dyspnea and productive cough GI: Denies: abdominal pain, nausea, vomiting or diarrhea : Denies: dysuria Musc: Denies: neck pain or back pain Skin/Breast: Denies: rash Neuro: Denies: headache(s) Psych: Denies: depression James/Lymph: Denies: easy bruising All/Imm: Denies: urticaria PFS ED PFSH: Medical History (Updated 12/31/22 @ 01:31 by Josias Lazaro MD) Atrial fibrillation Benign prostatic hyperplasia with incomplete bladder emptying Chronic cervical radiculopathy Chronic low back pain Chronic lumbar radiculopathy DDD (degenerative disc disease), lumbar Dizziness Encounter for long-term opiate analgesic use Encounter for long-term opiate analgesic use Facet joint disease Fibromyalgia Hx of diabetic foot ulcer Hyperlipidemia Hypertension Long-term use of high-risk medication continue to monitor use Pacemaker Restless legs syndrome Type 2 DM with CKD and hypertension Uncontrolled type 2 DM with peripheral circulatory disorder Surgical History History of permanent cardiac pacemaker placement History of umbilical hernia repair S/P cardiac pacemaker procedure S/P laser cataract surgery 2 YEARS AGO BILAT Family History Father , 80-house fire No problems noted. Mother , 70 Cancer Brother Cancer Lung disease Chronic kidney disease (CKD) Sister Cancer CAD (coronary artery disease) Diabetes Daughter Diabetes Family/Other Diabetes Denies family history of Clotting disorder Dementia Suicide Anesthesia complication Bleeding disorder Stroke Social History Smoking and tobacco status: never smoked Second hand smoke exposure: No Alcohol intake: never Adopted: No Marital status: / Current occupational status: retired Physical Exam Const: COMMON NORMALS: patient oriented x3 GENERAL APPEARANCE: ill appearing HENMT: COMMON NORMALS: normocephalic and atraumatic HEAD & SCALP: normocephalic and atraumatic Eye: COMMON NORMALS: Equal, round and reactive pupils present and EOMs intact bilaterally PUPIL: Yes Equal, round and reactive pupils present Neck/C-Spine: COMMON NORMALS: full ROM and supple Chest: COMMONS NORMALS: normal inspection of the chest and normal palpation of entire chest wall Resp: EFFORT & INSPECTION: Yes tachypneic and Yes labored AUSCULTATION: crackles and rales Cardio: COMMON NORMALS: No murmurs present (Cardio) RATE: tachycardic RHYTHM: abnormal rhythm irregularly irregular GI: COMMON NORMALS: Normal to inspection, nondistended, normoactive bowel sounds present, Soft to palpation, non-tender and no masses PALPATION: Yes Soft to palpation Extremity: COMMON NORMALS: normal to inspection and full ROM Neuro: COMMON NORMALS: patient oriented x3, moves all extremities and no focal motor deficits Psych: COMMON NORMALS: mental status grossly normal, Normal thought process present and cooperative THOUGHT PROCESS: Normal thought process present Skin: COMMON NORMALS: no rashes or lesions noted and no wounds GENERAL SKIN EXAM: no rashes or lesions noted Course Vital Signs: Vital signs: Vital Signs Temperature 99.1 F 12/30/22 23:33 Pulse Rate 113 H 12/31/22 01:11 Respiratory Rate 20 H 12/31/22 01:11 Blood Pressure 96/70 12/31/22 01:11 Pulse Oximetry 92 12/31/22 01:11 Oxygen Delivery Me thod 12/30/22 23:51 Oxygen Flow Rate 2 12/30/22 23:51 MDM - SOB/Dyspnea Medical Decision Making Patient presents here with A-fib with RVR along with pneumonia his blood pressures here have been normal he does have an elevated white count and lactic acid patient did receive a fluid bolus I did not give him the full sepsis bolus as he has a history of CHF he appears fluid overloaded with cardiomegaly on his chest x-ray and his BNP is elevated so if feel that we will do more harm to give him more fluids at this time with his blood pressure staying steady he was given IV antibiotics his heart rate is improved here as well I spoke to the hospitalist will admit to cardiac stepdown Lab Data 12/30/22 23:42 12/30/22 23:42 Labs/Radiology: Radiology Impressions Chest X-Ray 12/30/22 23:31 IMPRESSION: 1. Cardiomegaly and pulmonary vascular congestion with interstitial edema. 2. Patchy bilateral ground-glass airspace opacities reflecting alveolar edema and/or bronchopneumonia. 3. Pacemaker. Laboratory Results WBC 14.9 10^3/uL (4.0-10.0) H 12/30/22 23:42 RBC 4.15 10^6/uL (4.1-5.3) 12/30/22 23:42 Hgb 11.6 g/dL (11.7-16.6) L 12/30/22 23: Hct 36.0 % (42.0-52.0) L 12/30/22 23:42 MCV 86.7 fl (80-94) 12/30/22 23: MCH 28.0 pg (28.0-34.0) 12/30/22 23: MCHC 32.2 g/dL (30.0-36.0) 12/30/22 23:42 RDW 14.7 % (12.1-15.1) 12/30/22 23:42 Plt Count 286 10^3/cmm (130-400) 12/30/22 23:42 MPV 11.0 fL (7.4-10.4) H 12/30/22 23:42 Neut % (Auto) 72.7 % 12/30/22 23: Lymph % (Auto) 13.7 % 12/30/22 23:42 [place] % (Auto) 12.4 % 12/30/22 23:42 Eos % (Auto) 0.1 % 12/30/22 23:42 Baso % (Auto) 0.5 % 12/30/22 23:42 Neut # (Auto) 10.81 10^3/uL (1.8-7.7) H 12/30/22 23:42 Lymph # (Auto) 2.0 10^3/uL (0.8-4.8) 12/30/22 23:42 [place] # (Auto) 1.9 10^3/uL (0.2-0.9) H 12/30/22 23:42 Eos # (Auto) 0.0 10^3/uL (0.0-0.8) 12/30/22 23:42 Baso # (Auto) 0.1 10^3/uL (0.0-0.1) 12/30/22 23:42 Nucleated RBC % (auto) 0 % 12/30/22 23: Nucleated RBCs # 0.0 /100WBC 12/30/22 23:42 PT 20.30 SECONDS (12.1-14.9) H 12/30/22 23:42 INR 1.68 (0.8-1.2) H 12/30/22 23:42 Specimen Type Arterial 12/30/22 23:38 Sample Site Radial, right 12/30/22 23:38 ABG pH 7.39 (7.35-7.45) 12/30/22 23:38 ABG pCO2 33.7 mmHg (35-45) L 12/30/22 23:38 ABG pO2 63.3 mmHg (80.0-100.0) L 12/30/22 23:38 ABG HCO3 20.3 mmol/L (22-26) L 12/30/22 23:38 ABG Base Excess -4.0 mmol/L (-2.0-2.0) L 12/30/22 23:38 Dar Test Pos 12/30/22 23:38 Hematocrit 37.7 % (42-52) L 12/30/22 23:38 Hgb O2 Saturation 91.1 % (95-100) L 12/30/22 23:38 Carboxyhemoglobin 1.6 %THgb (0.4-20.1) 12/30/22 23: Methemoglobin 0.2 % (0.4-1.5) L 12/30/22 23:38 Total Hemoglobin 12.3 g/dL (14-18) L 12/30/22 23:38 O2 Delivery Device Nc 12/30/22 23:38 O2 Liters/Min 2.0 % 12/30/22 23:38 FiO2 28.0 % 12/30/22 23:38 Crawler Dragline Operator ID Chani 12/30/22 23:38 Sodium 134 mmol/L (136-145) L 12/30/22 23:42 Potassium 3.9 mmol/L (3.5-5.1) 12/30/22 23:42 Chloride 98 mmol/L (98-107) 12/30/22 23:42 Carbon Dioxide 20 mmol/L (22-29) L 12/30/22 23:42 Anion Gap 19.9 (5-19) H 12/30/22 23:42 BUN 33 mg/dL (8-23) H 12/30/22 23:42 Creatinine 1.6 mg/dL (0.7-1.2) H 12/30/22 23:42 GFR Calculation Not Reportable 12/30/22 23:42 Glucose 280 mg/dL (65-115) H 12/30/22 23:42 Calculated Osmolality 295 mOsm/kg (285-295) 12/30/22 23:42 Lactate 3.3 mmol/L (0.5-2.2) H 12/30/22 23:42 Calcium 8.7 mg/dL (8.5-10.5) 12/30/22 23:42 Total Bilirubin 1.0 mg/dL (0.15-1.2) 12/30/22 23:42 AST 20 U/L (0-40) 12/30/22 23:42 ALT 14 U/L (0-41) 12/30/22 23:42 Alkaline Phosphatase 75 U/L (40-130) 12/30/22 23:42 NT-Pro-B Natriuret Pep 9204 pg/mL (0-450) H 12/30/22 23:42 Total Protein 7.4 g/dL (6.6-8.7) 12/30/22 23:42 Albumin 3.3 g/dL (3.5-5.2) L 12/30/22 23:42 Globulin 4.1 g/dL (1.3-4.6) 12/30/22 23:42 Influenza Type A Ag negative (Negative) 12/30/22 23:48 Influenza Type B Ag negative (Negative) 12/30/22 23:48 SARS-CoV-2 Ag (Rapid) negative (Negative) 12/30/22 23:48 EKG Data EKG 1: I personally reviewed and interpreted this EKG as follows: EKG Interpretation Date: 12/30/22 EKG interpretation time: 23:48 Interpretation: atrial fib hr [address] or t wave abnormalities qrs 106 qtc 369 Critical Care Time Critical Care Time: Critical Care Time: Yes Total Critical Care Time: 40 Attestation: The high probability of a clinically significant, sudden or life threatening deterioration of the patient's resp/cv system(s) required my full and direct attention, intervention and personal management. The critical care time is as shown. 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
[2022-12-31] VITALS (32 sets, daily range): BP systolic 96–157; BP diastolic 65–79; PULSE 76–120; RESP 15–37; TEMP 36.6–37.2; O2SAT 90–98
[2022-12-31] MEDS: cefTRIAXone 1,000 MG in sodium chloride 0.9% (plus) 50 ML 100 MG IV ×2 (00:06→21:12)
[2022-12-31] MEDS: azithromycin 500 MG in sodium chloride 0.9% 250 ML 250 MG IV (00:06)
[2022-12-31] MEDS: sodium chloride 0.9% 1,000 ML 999 ML IV (00:06)
[2022-12-31] MEDS: acetaminophen 500 mg Tablet 1000 MG PO (00:06)
[2022-12-31 00:13] LABS: INR 1.68 (0.8-1.2)
[2022-12-31 00:22] LABS: Basophils # 0.1 10^3/uL (0.0-0.1); Basophils % 0.5 %; Eosinophils % 0.1 %; Hemoglobin 11.6 g/dL (11.7-16.6); Lymphocytes % 13.7 %; Mean Corpuscular HGB Conc 32.2 g/dL (30.0-36.0); Mean Corpuscular Volume 86.7 fl (80-94); Monocytes # 1.9 10^3/uL (0.2-0.9); Monocytes % 12.4 %; Neutrophils # 10.81 10^3/uL (1.8-7.7); Neutrophils % 72.7 %; Nucleated Red Blood Cells % 0 %; Platelet Count 286 10^3/cmm (130-400); Red Blood Count 4.15 10^6/uL (4.1-5.3); Red Cell Distribution Width 14.7 % (12.1-15.1); White Blood Count 14.9 10^3/uL (4.0-10.0)
[2022-12-31 00:23] LABS: Slide Review Slide Review Perform
[2022-12-31 00:23] LABS: Influenza A by IFA negative (Negative); Influenza B by IFA negative (Negative); SARS Covid-2 Antigen negative (Negative)
[2022-12-31 00:41] LABS: Alanine Aminotransferase 14 U/L (0-41); Albumin Level 3.3 g/dL (3.5-5.2); Alkaline Phosphatase 75 U/L (40-130); Anion Gap 19.9 (5-19); Aspartate Amino Transferase 20 U/L (0-40); Blood Urea Nitrogen 33 mg/dL (8-23); Calcium 8.7 mg/dL (8.5-10.5); Carbon Dioxide 20 mmol/L (22-29); Chloride 98 mmol/L (98-107); Globulin 4.1 g/dL (1.3-4.6); Glucose 280 mg/dL (65-115); NT Pro B Type Natriuretic Pept 9204 pg/mL (0-450); Osmolality Calculated 295 mOsm/kg (285-295); Potassium 3.9 mmol/L (3.5-5.1); Sodium 134 mmol/L (136-145); Total Protein 7.4 g/dL (6.6-8.7)
[2022-12-31 00:46] LABS: Lactate (Lactic Acid level) 3.3 mmol/L (0.5-2.2)
--- NOTE | 2022-12-31 01:01 | PM.HP ---
Providers/Chief Complaint Primary Care Provider: BONY Zavala Chief Complaint: SOB History of Present Illness Timothy Casey is a 82 year old male who lives alone, has history of A-fib, uses 3 L of oxygen at baseline with chronic hypoxia History of diabetes ANTONY, presented today for worsening of shortness of breath. Patient is stating that his symptoms started on Wednesday with shortness of breath greatly symptoms worsened to the point now he is experiencing wheezing and getting short of breath at rest. He has noticed low-grade fever, no active chest pain, diarrhea. He has become lethargic and fatigued. No nausea or vomiting. In the ER he was diagnosed with A-fib RVR blood pressure dropped to Cardizem High white count, afebrile, lactic acid is high And is septic secondary to pneumonia with endorgan damage worsening of creatinine Judicious use of fluids because of CHF exacerbation Review of Systems Const: Reports: fever(s) and chills Eyes: Denies: change in vision ENMT: Denies: throat pain Card: Denies: chest pain Resp: Reports: dyspnea GI: Denies: abdominal pain : Denies: flank pain Musc: Reports: extremity pain; Denies: neck pain Skin/Breast: Denies: rash Medications/Allergies Home Medications Medication Instructions Recorded Confirmed Last Taken Type nitroglycerin 0.4 mg sublingual 0.4 mg sublingual Q5M PRN chest 11/18/20 12/04/22 Unknown Rx tablet (Nitrostat) pain #50 tabs tamsulosin 0.4 mg capsule (Flomax) 0.4 mg PO DAILY #30 caps 12/08/21 12/04/22 01/25/22 Rx rivaroxaban 20 mg tablet (Xarelto) 20 mg PO DAILY #90 tabs 01/20/22 12/04/22 01/25/22 Rx lancets 18 gauge #100 ea 04/06/22 12/04/22 Unknown Rx hydralazine 50 mg tablet 75 mg PO Q8H #405 tabs 04/09/22 12/04/22 Unknown Rx blood sugar diagnostic (True #100 ea 06/24/22 12/04/22 Unknown Rx Metrix Glucose Test Strip) pantoprazole 40 mg tablet,delayed See Rx Instructions .Route 07/21/22 12/04/22 Unknown Rx release .COMPLEX #90 tabs amlodipine 10 mg tablet 10 mg PO DAILY #100 tabs 10/06/22 12/04/22 Unknown Rx glimepiride 4 mg tablet See Rx Instructions .Route 10/08/22 12/04/22 Unknown Rx .COMPLEX #180 tabs metformin 750 mg tablet,extended See Rx Instructions .Route 10/08/22 12/04/22 Unknown Rx release 24 hr .COMPLEX #90 tabs gabapentin 100 mg capsule 100 mg PO DAILY #90 caps 10/12/22 12/04/22 Unknown Rx isosorbide mononitrate 120 mg 120 mg PO DAILY #90 tabs 11/12/22 12/04/22 Unknown Rx tablet,extended release 24 hr pravastatin 40 mg tablet 40 mg PO DAILY #90 tabs 12/08/22 Unknown Rx Allergies Allergy/AdvReac Type Severity Reaction Status Date / Time methadone Allergy NA Verified 12/04/22 10:14 chlorthalidone AdvReac Severe nausea Verified 12/04/22 10:14 PFSH Acute PFSH: Medical History (Updated 12/31/22 @ 01:31 by Josias Lazaro MD) Atrial fibrillation Benign prostatic hyperplasia with incomplete bladder emptying Chronic cervical radiculopathy Chronic low back pain Chronic lumbar radiculopathy DDD (degenerative disc disease), lumbar Dizziness Encounter for long-term opiate analgesic use Encounter for long-term opiate analgesic use Facet joint disease Fibromyalgia Hx of diabetic foot ulcer Hyperlipidemia Hypertension Long-term use of high-risk medication continue to monitor use Pacemaker Restless legs syndrome Type 2 DM with CKD and hypertension Uncontrolled type 2 DM with peripheral circulatory disorder Surgical History History of permanent cardiac pacemaker placement History of umbilical hernia repair S/P cardiac pacemaker procedure S/P laser cataract surgery 2 YEARS AGO BILAT Family History Father , 80-house fire No problems noted. Mother , 70 Cancer Brother Cancer Lung disease Chronic kidney disease (CKD) Sister Cancer CAD (coronary artery disease) Diabetes Daughter Diabetes Family/Other Diabetes Denies family history of Clotting disorder Dementia Suicide Anesthesia complication Bleeding disorder Stroke Social History Smoking and tobacco status: never smoked Second hand smoke exposure: No Alcohol intake: never Adopted: No Marital status: / Current occupational status: retired Vitals/I&O/Wt Last Vital Signs Temp 99.1 F 12/30/22 23:33 Pulse 109 H 12/30/22 23:51 Resp 20 H 12/30/22 23:51 BP 112/67 12/30/22 23:51 Pulse Ox 90 12/30/22 23:51 O2 Del Method 12/30/22 23:51 O2 Flow Rate 2 12/30/22 23:51 Weight last 48 hrs Weight 104.326 kg Physical Exam Narrative: BorderlinePleasant cooperative elderly male Audible wheezing Bilateral breath sounds with wheezing and rhonchi and crackles Currently on 3 L Abdomen distended and soft Lower extremity trace edema Awake and alert Able to comprehend Pleasant and cooperative Family At the bedside Septic exam no skin mottling Good cap refill Awake and alert Data 12/30/22 23:42 12/30/22 23:42 Micro: Microbiology 12/30/22 23:53 Blood Culture - Preliminary Blood SPECIMEN COLLECTED 12/30/22 23:51 Blood Culture - Preliminary Blood SPECIMEN COLLECTED A&P Assessment and plan (1) Community acquired pneumonia: (2) Atrial fibrillation with RVR: (3) Sepsis: (4) Acute kidney injury superimposed on chronic kidney disease: (5) Chronic intermittent hypoxia with obstructive sleep apnea: (6) Type 2 DM with CKD and hypertension: (7) Atrial fibrillation: Qualifiers: Atrial fibrillation type: longstanding persistent Qualified Code(s): I48.11 - Longstanding persistent atrial fibrillation (8) Chronic lumbar radiculopathy: (9) Chronic cervical radiculopathy: (10) Benign prostatic hyperplasia with incomplete bladder emptying: (11) Restless legs syndrome: Plan Sepsis secondary to pneumonia Right middle lobe pneumonia Start ceftriaxone and azithromycin DuoNeb and prednisone Check D-dimer procalcitonin COVID antigen is negative Influenza negative Because of CHF exacerbation will not be able to give septic bolus Obtain lactic acid, blood cultures and sputum culture A-fib RVR Patient has a pacemaker Might switch to amiodarone drip discontinue Cardizem if blood pressure stays low Continue on Xarelto Need to reduce dose if kidney function worsens Acute on chronic kidney disease related to sepsis Place Sen catheter Start IV diuresis It could be cardiorenal in nature as well Acute preserved ejection fraction heart exacerbation Start IV diuresis COPD exacerbation Denies active wheezing However oxygen saturation is good on 3 L which is baseline requirement Add steroids Exacerbation secondary to pneumonia Goals of care discussed with the patient: He is full code Does not want to stay on machines for prolonged time With chest compressions, defibrillation x3, intubation Son-in-law at the bedside Patient was very short of breath Help me to obtain more information Diabetes: Consistent carb diet with sliding scale Attestations Medical Necessity Statement*: More than 2 midnights anticipated Diagnoses Community acquired pneumonia J18.9 Atrial fibrillation with RVR I48.91 Sepsis A41.9 Acute kidney injury superimposed on chronic kidney disease N17.9; N18.9 Chronic intermittent hypoxia with obstructive sleep apnea G47.34; G47.33 Type 2 DM with CKD and hypertension E11.22; I12.9 Atrial fibrillation I48.11 Atrial fibrillation type: longstanding persistent Chronic lumbar radiculopathy M54.16 Chronic cervical radiculopathy M54.12 Benign prostatic hyperplasia with incomplete bladder emptying N40.1; R39.14 Restless legs syndrome G25.81
[2022-12-31 02:00] LABS: D Dimer 4.32 ug/mIFEU (0-0.59)
[2022-12-31 02:04] LABS: Procalcitonin 1.39 ng/mL (0-0.5)
[2022-12-31] MEDS: FUROsemide 10 mg/mL SDV 10mL 60 MG IVP (02:08)
[2022-12-31 02:31] LABS: Glucose Point of Care 291 mg/dL (70-110)
[2022-12-31 04:59] LABS: Basophils # 0.1 10^3/uL (0.0-0.1); Basophils % 0.5 %; Hemoglobin 11.1 g/dL (11.7-16.6); Lymphocytes # 0.6 10^3/uL (0.8-4.8); Lymphocytes % 5.3 %; Mean Corpuscular HGB Conc 31.7 g/dL (30.0-36.0); Mean Corpuscular Hemoglobin 27.5 pg (28.0-34.0); Mean Corpuscular Volume 86.8 fl (80-94); Mean Platelet Volume 11.1 fL (7.4-10.4); Monocytes # 1.1 10^3/uL (0.2-0.9); Monocytes % 9.3 %; Neutrophils # 9.75 10^3/uL (1.8-7.7); Neutrophils % 84.2 %; Nucleated Red Blood Cells % 0 %; Platelet Count 259 10^3/cmm (130-400); Red Blood Count 4.03 10^6/uL (4.1-5.3); Red Cell Distribution Width 14.8 % (12.1-15.1); White Blood Count 11.6 10^3/uL (4.0-10.0)
[2022-12-31 05:33] LABS: Slide Review Slide Review Perform
[2022-12-31 06:47] LABS: Anion Gap 21.2 (5-19); Blood Urea Nitrogen 35 mg/dL (8-23); Calcium 8.5 mg/dL (8.5-10.5); Carbon Dioxide 18 mmol/L (22-29); Chloride 101 mmol/L (98-107); Glucose 329 mg/dL (65-115); Magnesium 2.1 mg/dL (1.7-2.3); Osmolality Calculated 303 mOsm/kg (285-295); Potassium 4.2 mmol/L (3.5-5.1); Sodium 136 mmol/L (136-145)
[2022-12-31 07:05] LABS: C Reactive Protein 400.7 mg/L (0.0-4.9)
[2022-12-31 07:29] LABS: Glucose Point of Care 353 mg/dL (70-110)
[2022-12-31] MEDS: insulin lispro 100 unit/1 mL SUBCUT ×3 (08:02→17:30)
[2022-12-31] MEDS: tamsulosin 0.4 mg Capsule PO (09:34)
[2022-12-31] MEDS: azithromycin 250 mg Tablet 500 MG PO (09:34)
[2022-12-31] MEDS: rivaroxaban 10 mg Tablet 20 MG PO (09:35)
[2022-12-31] MEDS: sennosides-docusate Tablet 1 TAB PO (09:35)
[2022-12-31 11:40] LABS: Glucose Point of Care 310 mg/dL (70-110)
--- NOTE | 2022-12-31 16:09 | USR_ITS ---
PROCEDURE INFORMATION: Exam: US Retroperitoneal; Complete; Kidneys and Bladder Exam date and time: 12/31/2022 4:25 PM Age: 82 years old Clinical indication: Condition or disease; Other: Evaluate for hydro; Additional info: Evalaute for hydronephrosis TECHNIQUE: Imaging protocol: Real-time ultrasound of the retroperitoneum with image documentation. Complete exam focused on the kidneys and bladder. COMPARISON: CT abdomen pelvis w con* [id number] 01/25/2022 3:49 PM FINDINGS: Right kidney: 9.9 x 6.0 x 5.7 cm. 1.8 cm possible round hypoechoic lesion in the lateral right kidney. There was no cyst in the right kidney on the prior CT. No calculus or hydronephrosis. Left kidney: 10.8 x 5.3 x 5.7 cm. 1.8 cm anechoic cortical cyst, unchanged from the prior CT. No mass, calculus, or hydronephrosis. Urinary bladder: Decompressed by Sen catheter. US/US renal BI* [id number] IMPRESSION: 1. No hydronephrosis. 2. Possible 1.8 cm hypoechoic lesion in the lateral right kidney. This is new since the prior CT and could represent a mass or cyst. Recommend non-emergent MRI without and with contrast or non-emergent CT without and with contrast. MRI is preferred for masses under 1.5 cm.
--- NOTE | 2022-12-31 16:09 | PM.PN ---
Subjective Subjective: Overnight labs and H&P reviewed. Currently running amiodarone infusion at 0.5. Heart rate is well controlled at 86 bpm. Patient afebrile and hemodynamically stable. Creatinine at 1.8. Urine output at 1.5 L. Medications: Reviewed: Yes Vitals/I&O/Wt Last Vital Signs Temp 98.6 F 12/31/22 15:17 Pulse 86 12/31/22 15:17 Resp 25 H 12/31/22 15:17 BP 150/79 12/31/22 15:17 Pulse Ox 93 12/31/22 15:17 O2 Del Method 12/31/22 15:17 O2 Flow Rate 2 12/30/22 23:51 FiO2 40 12/31/22 02:43 12/31/22 12/31/22 12/31/22 06:59 14:59 22:59 Intake Total 2466.604 / 2466.604 Output Total 1075 / 1075 475 / 475 Balance -1075 / -1075 1990.604 / 1990.604 Weight last 48 hrs Weight 104.326 kg Physical Exam Narrative: General: No acute distress, AO x3 HEENT: PERRLA, pupils bilaterally equal and reactive, pallors not present Chest: Normal vesicular breath sounds, no added sounds, equal good air entry bilaterally CVS: S1-S2 regular, no murmurs, no tachycardia, no gallops, no rubs Abdomen: Soft, nontender, no organomegaly, bowel sounds present Neuro: No focal deficits, no facial deformity, AO x3, power 5/5 in all limbs Urinary Catheter Management: Sen: Cath Placed During This Visit: yes Reason for Continuing Indwelling Catheter: Other Urinary Catheter Date of Insertion: 12/31/22 Urinary Catheter Time of Insertion: 02:24 Data 12/31/22 04:29 12/31/22 04:29 Micro: Microbiology 12/31/22 02:00 MRSA Culture - Final Nose 12/30/22 23:53 Blood Culture - Preliminary Blood SPECIMEN COLLECTED 12/30/22 23:51 Blood Culture - Preliminary Blood SPECIMEN COLLECTED A&P Assessment and plan (1) Community acquired pneumonia: (2) Atrial fibrillation with RVR: (3) Sepsis: (4) Acute kidney injury superimposed on chronic kidney disease: (5) Chronic intermittent hypoxia with obstructive sleep apnea: (6) Type 2 DM with CKD and hypertension: (7) Atrial fibrillation: Qualifiers: Atrial fibrillation type: longstanding persistent Qualified Code(s): I48.11 - Longstanding persistent atrial fibrillation (8) Chronic lumbar radiculopathy: (9) Chronic cervical radiculopathy: (10) Benign prostatic hyperplasia with incomplete bladder emptying: (11) Restless legs syndrome: Plan Sepsis secondary to pneumonia Right middle lobe pneumonia Continue ceftriaxone and azithromycin DuoNeb and prednisone Elevated D-dimer, however lower suspicion of PE given that patient take Xarelto at home. COVID antigen is negative Influenza negative Lactate 3.3 upon admission, repeat today A-fib RVR Patient has a pacemaker Currently on amiodarone infusion, rate is controlled, currently at 0.5. Continue on Xarelto Need to reduce dose if kidney function worsens Acute on chronic kidney disease related to sepsis Received 60 mg IV Lasix thus far. Creatinine bumped up to 1.8. Urine output 1.5 L. We will cut back Lasix to 40 and closely monitor renal function. It could be cardiorenal in nature as well Check renal US Acute preserved ejection fraction heart exacerbation IV diuresis as above. No recent echocardiogram on file, will check one today. COPD exacerbation on baseline 3lpm supplemtal 02, currently at baseline reduce steroids to once daily make nebulization scheduled every 6 hrs add budesonide inhalation Exacerbation secondary to pneumonia Goals of care discussed with the patient: He is full code Does not want to stay on machines for prolonged time With chest compressions, defibrillation x3, intubation Diabetes: Consistent carb diet with sliding scale Dvt ppx: xarelto Attestations Medical Necessity Statement*: IV diuresis, IV antibiotics, IV amiodarone Coding Level of Care Code Acute Code for Chg Fwd Moderate MDM includes number and complexity of problems actively addressed during encounter, amount and/or complexity of data reviewed/ordered and described risk of complication, morbidity or mortality of management as documented Diagnoses Community acquired pneumonia J18.9 Atrial fibrillation with RVR I48.91 Sepsis A41.9 Acute kidney injury superimposed on chronic kidney disease N17.9; N18.9 Chronic intermittent hypoxia with obstructive sleep apnea G47.34; G47.33 Type 2 DM with CKD and hypertension E11.22; I12.9 Atrial fibrillation I48.11 Atrial fibrillation type: longstanding persistent Chronic lumbar radiculopathy M54.16 Chronic cervical radiculopathy M54.12 Benign prostatic hyperplasia with incomplete bladder emptying N40.1; R39.14 Restless legs syndrome G25.81
[2022-12-31 17:25] LABS: Glucose Point of Care 314 mg/dL (70-110)
[2022-12-31] MEDS: budesonide 0.5 mg/2 mL Neb INHALATION (20:30)
[2022-12-31] MEDS: ipratropium-albuterol 3 mL Neb INHALATION (20:30)
[2022-12-31] MEDS: amiodarone 200 mg Tablet 400 MG PO (21:12)
[2022-12-31 21:24] LABS: Glucose Point of Care 204 mg/dL (70-110)
[2023-01-01] VITALS (20 sets, daily range): BP systolic 111–128; BP diastolic 53–87; PULSE 71–96; RESP 14–29; TEMP 36.5–36.8; O2SAT 92–95
[2023-01-01] MEDS: FUROsemide 10 mg/mL SDV 10mL 40 MG IVP (01:41)
[2023-01-01 04:28] LABS: Basophils % 0.2 %; Hematocrit 33.6 % (42.0-52.0); Lymphocytes # 0.9 10^3/uL (0.8-4.8); Lymphocytes % 6.7 %; Mean Corpuscular HGB Conc 32.7 g/dL (30.0-36.0); Mean Corpuscular Hemoglobin 28.3 pg (28.0-34.0); Mean Corpuscular Volume 86.4 fl (80-94); Mean Platelet Volume 11.1 fL (7.4-10.4); Monocytes # 0.7 10^3/uL (0.2-0.9); Monocytes % 5.7 %; Neutrophils # 11.24 10^3/uL (1.8-7.7); Nucleated Red Blood Cells % 0 %; Platelet Count 301 10^3/cmm (130-400); Red Blood Count 3.89 10^6/uL (4.1-5.3); Red Cell Distribution Width 14.9 % (12.1-15.1); White Blood Count 13.1 10^3/uL (4.0-10.0)
[2023-01-01 04:34] LABS: Alanine Aminotransferase 16 U/L (0-41); Albumin Level 3.2 g/dL (3.5-5.2); Alkaline Phosphatase 73 U/L (40-130); Aspartate Amino Transferase 22 U/L (0-40); Blood Urea Nitrogen 44 mg/dL (8-23); Calcium 8.6 mg/dL (8.5-10.5); Carbon Dioxide 21 mmol/L (22-29); Chloride 96 mmol/L (98-107); Globulin 3.9 g/dL (1.3-4.6); Glucose 322 mg/dL (65-115); Osmolality Calculated 298 mOsm/kg (285-295); Sodium 132 mmol/L (136-145); Total Bilirubin 0.4 mg/dL (0.15-1.2); Total Protein 7.1 g/dL (6.6-8.7)
[2023-01-01 04:54] LABS: Slide Review Slide Review Perform
[2023-01-01 07:16] LABS: Glucose Point of Care 404 mg/dL (70-110)
[2023-01-01] MEDS: budesonide 0.5 mg/2 mL Neb INHALATION ×2 (07:31→20:16)
[2023-01-01] MEDS: ipratropium-albuterol 3 mL Neb INHALATION ×3 (07:31→20:16)
[2023-01-01] MEDS: insulin lispro 100 unit/1 mL SUBCUT ×3 (08:14→17:06)
[2023-01-01] MEDS: rivaroxaban 10 mg Tablet 20 MG PO (09:09)
[2023-01-01] MEDS: tamsulosin 0.4 mg Capsule PO (09:09)
[2023-01-01] MEDS: azithromycin 250 mg Tablet 500 MG PO (09:09)
[2023-01-01] MEDS: amiodarone 200 mg Tablet 400 MG PO ×2 (09:09→18:02)
[2023-01-01] MEDS: sennosides-docusate Tablet 1 TAB PO (09:09)
[2023-01-01 11:25] LABS: Glucose Point of Care 417 mg/dL (70-110)
--- NOTE | 2023-01-01 11:25 | PM.PN ---
Subjective Subjective: Feeling better today. Denies chest pain. He says that he is still a little short of breath, but is better than when he came in. Vitals/I&O/Wt Last Vital Signs Temp 97.8 F 01/01/23 11:00 Pulse 96 01/01/23 11:00 Resp 21 H 01/01/23 11:00 BP 122/85 01/01/23 11:00 Pulse Ox 95 01/01/23 11:00 O2 Del Method 01/01/23 11:00 O2 Flow Rate 3 01/01/23 11:00 FiO2 40 12/31/22 02:43 12/31/22 01/01/23 01/01/23 22:59 06:59 14:59 Intake Total 490 / 2956.604 561.396 / 3518.000 360 / 360 Output Total 600 / 1075 1300 / 2375 Balance -110 / 1881.604 -738.604 / 1143.000 360 / 360 Weight last 48 hrs Weight 230 lb Physical Exam Narrative: General: Cooperative patient in no apparent distress. Well developed. HEENT: Normocephalic, Atraumatic. External ears normal. Nasal passages patent without drainage. MMM. Heart: RRR. Resp: Symmetrical air movement. Mild bibasilar crackles and scattered wheezes. Abd: Soft, non-tender. Non-distended. Extremities: No edema. Skin: No rash or lesions on exposed areas. Urinary Catheter Management: Sen: Cath Placed During This Visit: yes Reason for Continuing Indwelling Catheter: Accurate Measurement of Urinary Output in Critically Ill Patients Urinary Catheter Date of Insertion: 12/31/22 Urinary Catheter Time of Insertion: 02:24 Data 01/01/23 02:55 01/01/23 02:55 Micro: Microbiology 12/30/22 23:53 Blood Culture - Preliminary Blood NEGATIVE TO DATE 12/30/22 23:51 Blood Culture - Preliminary Blood NEGATIVE TO DATE 12/31/22 02:00 MRSA Culture - Final Nose A&P Assessment and plan (1) Community acquired pneumonia: (2) Atrial fibrillation with RVR: (3) Sepsis: (4) Acute kidney injury superimposed on chronic kidney disease: (5) Chronic intermittent hypoxia with obstructive sleep apnea: (6) Type 2 DM with CKD and hypertension: (7) Atrial fibrillation: Qualifiers: Atrial fibrillation type: longstanding persistent Qualified Code(s): I48.11 - Longstanding persistent atrial fibrillation (8) Chronic lumbar radiculopathy: (9) Chronic cervical radiculopathy: (10) Benign prostatic hyperplasia with incomplete bladder emptying: (11) Restless legs syndrome: Plan 82 y/o M admitted for Sepsis, PNA, A-fib with RVR. Sepsis secondary to pneumonia Right middle lobe pneumonia Continue ceftriaxone and azithromycin DuoNeb and prednisone Elevated D-dimer, however lower suspicion of PE given that patient take Xarelto at home. COVID antigen is negative Influenza negative Lactate 3.3 upon admission, repeat today A-fib RVR Patient has a pacemaker Continue amiodarone. Continue on Xarelto Need to reduce dose if kidney function worsens Acute on chronic kidney disease related to sepsis Continue Lasix. Renal US showed a small 1.8cm hypoechoic lesion in right lateral kidney. Recommended non-emergent MRI to further evaluate. Will defer to PCP on discharge. Acute preserved ejection fraction heart exacerbation IV diuresis as above. No recent echocardiogram on file, will check one today. COPD exacerbation on baseline 3lpm supplemtal 02, currently at baseline Continue steroids. Will switch to oral prednisone tomorrow. Goals of care discussed with the patient: He is full code Does not want to stay on machines for prolonged time With chest compressions, defibrillation x3, intubation Code Status: Full IVF: None DVT PPx: Xarelto GI PPx: None ABx: Ceftriaxone, Azithromycin Diet: CC Discharge plan: TBD. Attestations Medical Necessity Statement*: Needs continued hospitalization for sepsis, PNA, amiodarone management, Echocardiogram. Diagnoses Community acquired pneumonia J18.9 Atrial fibrillation with RVR I48.91 Sepsis A41.9 Acute kidney injury superimposed on chronic kidney disease N17.9; N18.9 Chronic intermittent hypoxia with obstructive sleep apnea G47.34; G47.33 Type 2 DM with CKD and hypertension E11.22; I12.9 Atrial fibrillation I48.11 Atrial fibrillation type: longstanding persistent Chronic lumbar radiculopathy M54.16 Chronic cervical radiculopathy M54.12 Benign prostatic hyperplasia with incomplete bladder emptying N40.1; R39.14 Restless legs syndrome G25.81
--- NOTE | 2023-01-01 14:57 | USCV_ITS ---
Timothy Casey Age: 82 Gender: M : 1940 Exam Date: 01/01/2023 16:27 Ordering Phys: Herberth Matson DO Technologist: JEANNINE Exam Location: [facility] [place] Indication: concern for hf BP: / HR: 92 Rhythm: Sinus Technical Quality: Adequate MEASUREMENTS (Male / Female) Normal Values 2D ECHO LV Diastolic Diameter PLAX 5.0 cm 4.2 - 5.9 / 3.9 - 5.3 cm LV Systolic Diameter PLAX 4.0 cm IVS Diastolic Thickness 0.7 cm 0.6 - 1.0 / 0.6 - 0.9 cm IVS Systolic Thickness 0.7 cm LVPW Diastolic Thickness 0.6 cm 0.6 - 1.0 / 0.6 - 0.9 cm LVPW Systolic Thickness 0.8 cm LVOT Diameter 2.1 cm LV Ejection Fraction 2D Teich 40.2 % LV Ejection Fraction MOD 2C 30.9 % LV Ejection Fraction 2C AL 30.8 % LA Diameter 4.7 cm M-MODE Aortic Annulus Diameter 3.1 cm LA Ao Ratio MM 1.6 MV E Point Septal Separation 0.5 cm DOPPLER AV Peak Velocity 123.0 cm/s LVOT Peak Velocity 91.0 cm/s AV Area Cont Eq vti 2.6 cm squared AV Area Cont Eq pk 2.5 cm squared MV Area PHT 4.5 cm squared MV E' Velocity 68.5 cm/s Mitral E to MV E' Ratio 11.1 Mitral E to LV E' Lateral Ratio 10.6 Mitral E to LV E' Septal Ratio 11.9 TR Peak Velocity 268.0 cm/s TR Peak Gradient 28.7 mmHg TV Peak E Velocity 89.0 cm/s Right Atrial Pressure 6.0 mmHg Pulmonary Artery Systolic Pressu 34.7 mmHg PV Peak Velocity 81.0 cm/s FINDINGS Left Ventricle Normal left ventricular size and systolic function, EF 55%, visual Right Ventricle Mildly increased right ventricular size. Catheter/pacemaker wire in the right ventricular cavity. Right Atrium Mildly increased right atrial size. Catheter/pacemaker wire in the right atrial cavity. Left Atrium The left atrium is normal in size. Mitral Valve Thickened mitral valve. Trace mitral valve regurgitation. Aortic Valve Thickened aortic valve. Tricuspid Valve Moderate tricuspid valve regurgitation. Pulmonic Valve No gross abnormalities noted Pericardium No pericardial effusion. Aorta Normal ascending aorta dimension. IVC Normal IVC dimension with >50% respiratory change of the inferior vena cava. CONCLUSIONS Normal left ventricular size and systolic function, EF 55%, (visual. ) Mildly dilated right atrium and right ventricle. The right ventricular ejection fraction possibly within normal limits Moderate tricuspid valve regurgitation. Estimated pulmonary artery peak systolic pressure of 50 mmHg. Thickened mitral valve. Trace mitral valve regurgitation. Pacemaker wire in the right atrium right ventricle There is no pericardial effusion. There are no intracardiac masses. No similar previous studies are available for comparison. Dr Lisandro Mcgregor MD FAC (Electronically Signed) Final Date: 01 January 2023 18:45 S
[2023-01-01 18:07] LABS: Glucose Point of Care 206 mg/dL (70-110)
[2023-01-01 20:21] LABS: Glucose Point of Care 280 mg/dL (70-110)
[2023-01-01] MEDS: cefTRIAXone 1,000 MG in sodium chloride 0.9% (plus) 50 ML 100 MG IV (20:47)
[2023-01-02] VITALS (14 sets, daily range): BP systolic 120–148; BP diastolic 60–94; PULSE 75–97; RESP 16–92; TEMP 36.6–36.7; O2SAT 90–96
[2023-01-02] MEDS: ipratropium-albuterol 3 mL Neb INHALATION ×4 (01:13→21:02)
[2023-01-02] MEDS: FUROsemide 10 mg/mL SDV 10mL 40 MG IVP (02:32)
[2023-01-02 03:01] LABS: Basophils % 0.3 %; Hematocrit 36.3 % (42.0-52.0); Hemoglobin 11.7 g/dL (11.7-16.6); Lymphocytes # 1.3 10^3/uL (0.8-4.8); Lymphocytes % 8.1 %; Mean Corpuscular HGB Conc 32.2 g/dL (30.0-36.0); Mean Corpuscular Hemoglobin 28.3 pg (28.0-34.0); Mean Corpuscular Volume 87.7 fl (80-94); Mean Platelet Volume 11.1 fL (7.4-10.4); Monocytes # 0.9 10^3/uL (0.2-0.9); Monocytes % 5.5 %; Neutrophils % 83.7 %; Nucleated Red Blood Cells % 0 %; Platelet Count 368 10^3/cmm (130-400); Red Blood Count 4.14 10^6/uL (4.1-5.3); Red Cell Distribution Width 15.3 % (12.1-15.1); White Blood Count 15.6 10^3/uL (4.0-10.0)
[2023-01-02 03:23] LABS: Alanine Aminotransferase 24 U/L (0-41); Albumin Level 3.3 g/dL (3.5-5.2); Alkaline Phosphatase 88 U/L (40-130); Anion Gap 20.6 (5-19); Aspartate Amino Transferase 31 U/L (0-40); Blood Urea Nitrogen 56 mg/dL (8-23); Calcium 9.1 mg/dL (8.5-10.5); Carbon Dioxide 21 mmol/L (22-29); Chloride 94 mmol/L (98-107); Globulin 4.1 g/dL (1.3-4.6); Glucose 407 mg/dL (65-115); Osmolality Calculated 305 mOsm/kg (285-295); Potassium 4.6 mmol/L (3.5-5.1); Sodium 131 mmol/L (136-145); Total Bilirubin 0.4 mg/dL (0.15-1.2); Total Protein 7.4 g/dL (6.6-8.7)
[2023-01-02 03:27] LABS: Procalcitonin 0.78 ng/mL (0-0.5)
--- NOTE | 2023-01-02 05:35 | PC.NURSE ---
This RN has followed and observed SN Belkis perform assessments, administer medications and performed tasks using appropriate protocol procedures. I agree with all of students documentation.
[2023-01-02 06:10] LABS: Glucose Point of Care 434 mg/dL (70-110)
--- NOTE | 2023-01-02 06:34 | PC.NURSE ---
Patient expressed that he has a hemorrhoid, did not see it but saw blood on wipe as he was cleaning himself.
--- NOTE | 2023-01-02 07:12 | PC.NURSE ---
Patient requesting to have some Preperation H for reported hemorrhoids. Spoke with Dr Matson in the [facility] and received verbal order. RBVO
[2023-01-02] MEDS: insulin lispro 100 unit/1 mL SUBCUT ×3 (08:17→16:57)
[2023-01-02] MEDS: budesonide 0.5 mg/2 mL Neb INHALATION ×2 (09:21→21:02)
[2023-01-02] MEDS: amiodarone 200 mg Tablet 400 MG PO ×2 (10:07→18:07)
[2023-01-02] MEDS: tamsulosin 0.4 mg Capsule PO (10:07)
[2023-01-02] MEDS: sennosides-docusate Tablet 1 TAB PO (10:07)
[2023-01-02] MEDS: azithromycin 250 mg Tablet 500 MG PO (10:07)
[2023-01-02] MEDS: rivaroxaban 10 mg Tablet 20 MG PO (10:08)
[2023-01-02 11:03] LABS: Glucose Point of Care 442 mg/dL (70-110)
[2023-01-02] MEDS: phenyleph-mineral oil-petrolat Oint 28 gm 1 APPLIC TOPICAL (13:00)
--- NOTE | 2023-01-02 14:15 | PM.PN ---
Subjective Subjective: Says he is feeling better but still very weak. He has been able to eat and drink well. Says he was up with physical therapy able to walk in the [facility] some today. Vitals/I&O/Wt Last Vital Signs Temp 98.0 F 01/02/23 11:03 Pulse 95 01/02/23 13:26 Resp 16 01/02/23 13:20 BP 120/60 01/02/23 11:03 Pulse Ox 93 01/02/23 13:20 O2 Del Method 01/02/23 13:20 O2 Flow Rate 3 01/02/23 13:20 FiO2 40 12/31/22 02:43 01/01/23 01/02/23 01/02/23 22:59 06:59 14:59 Intake Total 2350 / 2710 420 / 3130 354 / 354 Output Total 1120 / 1120 1450 / 2570 850 / 850 Balance 1230 / 1590 -1030 / 560 -496 / -496 Physical Exam Narrative: General: Cooperative patient in no apparent distress. Well developed. HEENT: Normocephalic, Atraumatic. External ears normal. Nasal passages patent without drainage. MMM. Heart: RRR. Resp: LCTA. No respiratory distress, no use of accessory muscles. Abd: Soft, non-tender. Non-distended. Extremities: No edema. Skin: No rash or lesions on exposed areas. Urinary Catheter Management: Sen: Cath Placed During This Visit: yes Reason for Continuing Indwelling Catheter: Accurate Measurement of Urinary Output in Critically Ill Patients Urinary Catheter Date of Insertion: 12/31/22 Urinary Catheter Time of Insertion: 02:24 Data 01/02/23 02:30 01/02/23 02:30 A&P Assessment and plan (1) Community acquired pneumonia: (2) Atrial fibrillation with RVR: (3) Sepsis: (4) Acute kidney injury superimposed on chronic kidney disease: (5) Chronic intermittent hypoxia with obstructive sleep apnea: (6) Type 2 DM with CKD and hypertension: (7) Atrial fibrillation: Qualifiers: Atrial fibrillation type: longstanding persistent Qualified Code(s): I48.11 - Longstanding persistent atrial fibrillation (8) Chronic lumbar radiculopathy: (9) Chronic cervical radiculopathy: (10) Benign prostatic hyperplasia with incomplete bladder emptying: (11) Restless legs syndrome: Plan 82 y/o M admitted for Sepsis, PNA, A-fib with RVR. Continue close inpatient monitoring. Sepsis secondary to pneumonia Right middle lobe pneumonia Continue ceftriaxone and azithromycin DuoNeb and prednisone Recommended non-emergent MRI to further evaluate. Will defer to PCP on discharge. Anticipate discharge tomorrow if he continues to improve. We will switch to oral cefdinir on discharge. He is currently maintaining saturations on his baseline oxygen of 3 L. Goals of care discussed with the patient: He is full code Does not want to stay on machines for prolonged time With chest compressions, defibrillation x3, intubation Code Status: Full IVF: None DVT PPx: Xarelto GI PPx: None ABx: Ceftriaxone, Azithromycin Diet: CC Discharge plan: Anticipate discharge in the a.m. Attestations Medical Necessity Statement*: Needs continued hospitalization for sepsis, PNA, amiodarone management, Echocardiogram. Coding Level of Care Code Acute Code for Chg Fwd Moderate MDM includes number and complexity of problems actively addressed during encounter, amount and/or complexity of data reviewed/ordered and described risk of complication, morbidity or mortality of management as documented Diagnoses Community acquired pneumonia J18.9 Atrial fibrillation with RVR I48.91 Sepsis A41.9 Acute kidney injury superimposed on chronic kidney disease N17.9; N18.9 Chronic intermittent hypoxia with obstructive sleep apnea G47.34; G47.33 Type 2 DM with CKD and hypertension E11.22; I12.9 Atrial fibrillation I48.11 Atrial fibrillation type: longstanding persistent Chronic lumbar radiculopathy M54.16 Chronic cervical radiculopathy M54.12 Benign prostatic hyperplasia with incomplete bladder emptying N40.1; R39.14 Restless legs syndrome G25.81
[2023-01-02 16:33] LABS: Glucose Point of Care 162 mg/dL (70-110)
[2023-01-02 20:49] LABS: Glucose Point of Care 392 mg/dL (70-110)
[2023-01-02] MEDS: cefTRIAXone 1,000 MG in sodium chloride 0.9% (plus) 50 ML 100 MG IV (21:47)
[2023-01-03] VITALS (14 sets, daily range): BP systolic 109–147; BP diastolic 58–111; PULSE 68–113; RESP 16–30; TEMP 36.5–36.9; O2SAT 90–98
[2023-01-03] MEDS: phenyleph-mineral oil-petrolat Oint 28 gm 1 APPLIC TOPICAL (00:29)
[2023-01-03] MEDS: ipratropium-albuterol 3 mL Neb INHALATION ×3 (02:29→14:20)
[2023-01-03] MEDS: FUROsemide 10 mg/mL SDV 10mL 40 MG IVP (02:40)
[2023-01-03 05:22] LABS: Basophils # 0.1 10^3/uL (0.0-0.1); Basophils % 0.4 %; Hemoglobin 12.1 g/dL (11.7-16.6); Lymphocytes # 1.4 10^3/uL (0.8-4.8); Lymphocytes % 8.6 %; Mean Corpuscular HGB Conc 31.8 g/dL (30.0-36.0); Mean Corpuscular Hemoglobin 27.7 pg (28.0-34.0); Monocytes % 5.9 %; Neutrophils # 13.35 10^3/uL (1.8-7.7); Neutrophils % 80.4 %; Nucleated Red Blood Cells % 0 %; Platelet Count 432 10^3/cmm (130-400); Red Blood Count 4.37 10^6/uL (4.1-5.3); Red Cell Distribution Width 15.2 % (12.1-15.1); White Blood Count 16.6 10^3/uL (4.0-10.0)
--- NOTE | 2023-01-03 05:34 | PC.NURSE ---
This RN agrees with all assessments and medication administrations. Followed SN and observed her using appropriate patient identifiers.
[2023-01-03 05:40] LABS: Alanine Aminotransferase 30 U/L (0-41); Albumin Level 3.5 g/dL (3.5-5.2); Alkaline Phosphatase 98 U/L (40-130); Anion Gap 18.9 (5-19); Aspartate Amino Transferase 35 U/L (0-40); Blood Urea Nitrogen 51 mg/dL (8-23); Calcium 9.1 mg/dL (8.5-10.5); Carbon Dioxide 25 mmol/L (22-29); Chloride 90 mmol/L (98-107); Glucose 486 mg/dL (65-115); Osmolality Calculated 303 mOsm/kg (285-295); Potassium 4.9 mmol/L (3.5-5.1); Sodium 129 mmol/L (136-145); Total Bilirubin 0.5 mg/dL (0.15-1.2); Total Protein 7.5 g/dL (6.6-8.7)
[2023-01-03 07:06] LABS: Glucose Point of Care 490 mg/dL (70-110)
[2023-01-03] MEDS: budesonide 0.5 mg/2 mL Neb INHALATION (07:29)
[2023-01-03] MEDS: insulin lispro 100 unit/1 mL SUBCUT ×2 (09:46→12:29)
[2023-01-03] MEDS: rivaroxaban 10 mg Tablet 20 MG PO (09:47)
[2023-01-03] MEDS: tamsulosin 0.4 mg Capsule PO (09:48)
[2023-01-03] MEDS: azithromycin 250 mg Tablet 500 MG PO (09:48)
[2023-01-03] MEDS: amiodarone 200 mg Tablet 400 MG PO (09:48)
--- NOTE | 2023-01-03 10:06 | PC.SOCIAL ---
Imm update Imm updated with patient at bedside. Copy of page 2 provided. patient verbalized understanding. Copy in chart initialed, dated and timed.
[2023-01-03] MEDS: sennosides-docusate Tablet 1 TAB PO (10:09)
--- NOTE | 2023-01-03 11:30 | PC.NURSE ---
Dr. Neville to see patient. Updated on patient condition. New orders noted et implemented. Will notify physician of patient's mlunch blood glucose.
[2023-01-03 12:11] LABS: Glucose Point of Care 422 mg/dL (70-110)
[2023-01-03 14:24] LABS: Glucose Point of Care 170 mg/dL (70-110)
[2023-01-03 14:45] LABS: Glucose Point of Care 154 mg/dL (70-110)
--- NOTE | 2023-01-03 14:50 | PC.NURSE ---
Patient's son-in law is here to pick patient up for discharge. Patient's son-in law did not bring the patient's O2 tank. Contacted RT to discuss options to discharge the patient home.
--- NOTE | 2023-01-03 15:11 | PC.NURSE ---
Called patient's home O2 company to get them to bring the patient over some equipment to discharge the patient home with. Company will be bringing over supplies.
--- NOTE | 2023-01-03 16:17 | P.DS_ITS ---
Discharge Providers Date of Admission: 12/31/22 00:55 Date of Discharge: January 03, 2023 Attending Provider at Admission: Josias Lazaro MD Attending Provider at Discharge: Herberth Matson DO Primary Care Provider: BONY Zavala Diagnoses at Discharge Discharge Diagnosis (1) Community acquired pneumonia: Status: Acute (2) Atrial fibrillation with RVR: Status: Acute (3) Sepsis: Status: Acute (4) Acute kidney injury superimposed on chronic kidney disease: Status: Acute (5) Chronic intermittent hypoxia with obstructive sleep apnea: Status: Acute (6) Type 2 DM with CKD and hypertension: Status: Acute (7) Atrial fibrillation: Status: Acute Qualifiers: Atrial fibrillation type: longstanding persistent Qualified Code(s): I48.11 - Longstanding persistent atrial fibrillation (8) Chronic lumbar radiculopathy: Status: Chronic (9) Chronic cervical radiculopathy: Status: Chronic (10) Benign prostatic hyperplasia with incomplete bladder emptying: Status: Acute (11) Restless legs syndrome: Status: Chronic Reason for Visit Reason for Visit: SOB Hospital Course Hospital Course Mr. Casye is a 82 year old male who lives alone, who presented to the ER after having several days of worsening shortness of breath. He is typically on 3 L of oxygen at home, but he was having to turn his oxygen up to maintain his sat urations greater than 90%. He was evaluated in the emergency room and noted to be in atrial fibrillation with RVR, blood pressure was dropping with Cardizem and he was switched to amiodarone. In addition he was thought to be septic due to a leukocytosis and an elevated lactic acid. He does have a history of heart failure. Chest x-ray was concerning for pneumonia. He was started on ceftriaxone and azithromycin, breathing treatments and gentle diuresis. He did improve with antibiotics and breathing treatments. He was able to ambulate independently within his room and stated that his appetite had returned. He did have some issues with his blood sugars increasing significantly with steroids. He was started on sliding scale insulin. He continued to report a significant decrease in his wheezing and dyspnea. His IV amiodarone was switched to oral and the plan is to discharge him on oral with close follow-up with his street light repairer helper. He does see Dr. Mcgregor.? Physical Exam Narrative: General: Cooperative patient in no apparent distress. Well developed. HEENT: Normocephalic, Atraumatic. External ears normal. Nasal passages patent without drainage. MMM. Heart: RRR. Resp: Mild, scattered wheezes. There are fine crackles at the bases. Abd: Soft, non-tender. Non-distended. Extremities: No edema. Skin: No rash or lesions on exposed areas. Urinary Catheter Management: Sen: Cath Placed During This Visit: yes, but has since been removed by the nurse Reason for Continuing Indwelling Catheter: Accurate Measurement of Urinary Output in Critically Ill Patients Urinary Catheter Date of Insertion: 12/31/22 Urinary Catheter Time of Insertion: 02:24 Date Urinary Catheter Removed: 01/03/23 Time Urinary Catheter Discontinued: 15:00 Discharge Data Studies Completed and Pending Completed Studies During Hospitalization Category Date Time Status XR chest 1V portable [id number] Stat Exams 12/30/22 23:31 Completed CV. echo complete* [id number] Routine Ultrasound 01/01/23 14:57 Completed US renal BI* [id number] Routine Ultrasound 12/31/22 16:09 Completed Pending at discharge Category Date Time Status Blood Culture Stat Lab 12/30/22 23:53 Results Radiology Impressions Chest X-Ray 12/30/22 23:31 IMPRESSION: 1. Cardiomegaly and pulmonary vascular congestion with interstitial edema. 2. Patchy bilateral ground-glass airspace opacities reflecting alveolar edema and/or bronchopneumonia. 3. Pacemaker. Renal Ultrasound 12/31/22 16:09 IMPRESSION: 1. No hydronephrosis. 2. Possible 1.8 cm hypoechoic lesion in the lateral right kidney. This is new since the prior CT and could represent a mass or cyst. Recommend non-emergent MRI without and with contrast or non-emergent CT without and with contrast. MRI is preferred for masses under 1.5 cm. Laboratory Results WBC 16.6 10^3/uL (4.0-10.0) H 01/03/23 04:00 RBC 4.37 10^6/uL (4.1-5.3) 01/03/23 04:00 Hgb 12.1 g/dL (11.7-16.6) 01/03/23 04:00 Hct 38.0 % (42.0-52.0) L 01/03/23 04:00 MCV 87.0 fl (80-94) 01/03/23 04:00 MCH 27.7 pg (28.0-34.0) L 01/03/23 04:00 MCHC 31.8 g/dL (30.0-36.0) 01/03/23 04:00 RDW 15.2 % (12.1-15.1) H 01/03/23 04:00 Plt Count 432 10^3/cmm (130-400) H 01/03/23 04:00 MPV 11.0 fL (7.4-10.4) H 01/03/23 04:00 Neut % (Auto) 80.4 % 01/03/23 04:00 Lymph % (Auto) 8.6 % 01/03/23 04:00 [place] % (Auto) 5.9 % 01/03/23 04:00 Eos % (Auto) 0.0 % 01/03/23 04:00 Baso % (Auto) 0.4 % 01/03/23 04:00 Neut # (Auto) 13.35 10^3/uL (1.8-7.7) H 01/03/23 04:00 Lymph # (Auto) 1.4 10^3/uL (0.8-4.8) 01/03/23 04:00 [place] # (Auto) 1.0 10^3/uL (0.2-0.9) H 01/03/23 04:00 Eos # (Auto) 0.0 10^3/uL (0.0-0.8) 01/03/23 04:00 Baso # (Auto) 0.1 10^3/uL (0.0-0.1) 01/03/23 04:00 Nucleated RBC % (auto) 0 % 01/03/23 04:00 Nucleated RBCs # 0.0 /100WBC 01/03/23 04:00 PT 20.30 SECONDS (12.1-14.9) H 12/30/22 23:42 INR 1.68 (0.8-1.2) H 12/30/22 23:42 D-Dimer 4.32 ug/mIFEU (0-0.59) H 12/30/22 23:42 Specimen Type Arterial 12/30/22 23:38 Sample Site Radial, right 12/30/22 23:38 ABG pH 7.39 (7.35-7.45) 12/30/22 23:38 ABG pCO2 33.7 mmHg (35-45) L 12/30/22 23:38 ABG pO2 63.3 mmHg (80.0-100.0) L 12/30/22 23:38 ABG HCO3 20.3 mmol/L (22-26) L 12/30/22 23:38 ABG Base Excess -4.0 mmol/L (-2.0-2.0) L 12/30/22 23:38 Dar Test Pos 12/30/22 23:38 Hematocrit 37.7 % (42-52) L 12/30/22 23:38 Hgb O2 Saturation 91.1 % (95-100) L 12/30/22 23:38 Carboxyhemoglobin 1.6 %THgb (0.4-20.1) 12/30/22 23:38 Methemoglobin 0.2 % (0.4-1.5) L 12/30/22 23:38 Total Hemoglobin 12.3 g/dL (14-18) L 12/30/22 23:38 O2 Delivery Device Nc 12/30/22 23:38 O2 Liters/Min 2.0 % 12/30/22 23:38 FiO2 28.0 % 12/30/22 23:38 Automobile Body Repairer ID Alewe 12/30/22 23:38 Sodium 129 mmol/L (136-145) L 01/03/23 04:00 Potassium 4.9 mmol/L (3.5-5.1) 01/03/23 04:00 Chloride 90 mmol/L (98-107) L 01/03/23 04:00 Carbon Dioxide 25 mmol/L (22-29) 01/03/23 04:00 Anion Gap 18.9 (5-19) 01/03/23 04:00 BUN 51 mg/dL (8-23) H 01/03/23 04:00 Creatinine 1.6 mg/dL (0.7-1.2) H 01/03/23 04:00 GFR Calculation Not Reportable 01/03/23 04:00 Glucose 486 mg/dL (65-115) H 01/03/23 04:00 POC Glucose 154 mg/dL (70-110) H 01/03/23 14:40 Calculated Osmolality 303 mOsm/kg (285-295) H 01/03/23 04:00 Lactate 3.3 mmol/L (0.5-2.2) H 12/30/22 23:42 Calcium 9.1 mg/dL (8.5-10.5) 01/03/23 04:00 Magnesium 2.1 mg/dL (1.7-2.3) 12/31/22 04:29 Total Bilirubin 0.5 mg/dL (0.15-1.2) 01/03/23 04:00 AST 35 U/L (0-40) 01/03/23 04:00 ALT 30 U/L (0-41) 01/03/23 04:00 Alkaline Phosphatase 98 U/L (40-130) 01/03/23 04:00 C-Reactive Protein 166.0 mg/L (0.0-4.9) H 01/02/23 02:30 NT-Pro-B Natriuret Pep 9204 pg/mL (0-450) H 12/30/22 23:42 Total Protein 7.5 g/dL (6.6-8.7) 01/03/23 04:00 Albumin 3.5 g/dL (3.5-5.2) 01/03/23 04:00 Globulin 4.0 g/dL (1.3-4.6) 01/03/23 04:00 Procalcitonin 0.78 ng/mL (0-0.5) H 01/02/23 02:30 Influenza Type A Ag negative (Negative) 12/30/22 23:48 Influenza Type B Ag negative (Negative) 12/30/22 23:48 SARS-CoV-2 Ag (Rapid) negative (Negative) 12/30/22 23:48 Vitals Last Vital Signs Temp 98.5 F 01/03/23 12:00 Pulse 82 01/03/23 14:00 Resp 16 01/03/23 14:00 BP 125/76 01/03/23 12:00 Pulse Ox 97 01/03/23 14:00 O2 Del Method 01/03/23 14:00 O2 Flow Rate 3 01/03/23 14:00 FiO2 40 12/31/22 02:43 Discharge Plan Discharge Patient Disposition: Home Condition: Stable Prescriptions: New azithromycin 250 mg Tablet 500 mg PO DAILY Qty: 2 0RF Pacerone 200 mg Tablet 400 mg PO BID Qty: 20 0RF furosemide 20 mg tablet 20 mg PO DAILY Qty: 30 0RF cefdinir 300 mg capsule 300 mg PO BID 5 Days Qty: 10 0RF ProAir HFA 90 mcg/actuation HFA aerosol inhaler 1 inh inhalation Q6H Qty: 8.5 0RF Continued tamsulosin [Flomax] 0.4 mg capsule 0.4 mg PO DAILY Qty: 30 12RF gabapentin 100 mg capsule 100 mg PO DAILY Qty: 90 0RF nitroglycerin [Nitrostat] 0.4 mg tablet, sublingual 0.4 mg SUBLINGUAL Q5M PRN (Reason: chest pain) Qty: 50 2RF Xarelto 20 mg tablet 20 mg PO DAILY Qty: 90 3RF hydralazine 50 mg tablet 75 mg PO Q8H Qty: 405 3RF pantoprazole 40 mg tablet,delayed release (DR/EC) See Rx Instructions .ROUTE .COMPLEX Qty: 90 0RF Dose Instruction: Take 1 tablet by mouth once daily Rx Instructions: Take 1 tablet by mouth once daily amlodipine 10 mg tablet 10 mg PO DAILY Qty: 100 3RF glimepiride 4 mg tablet See Rx Instructions .ROUTE .COMPLEX Qty: 180 0RF Dose Instruction: TAKE 2 TABLETS BY MOUTH ONCE DAILY IN THE MORNING Rx Instructions: TAKE 2 TABLETS BY MOUTH ONCE DAILY IN THE MORNING metformin 750 mg tablet extended release 24 hr See Rx Instructions .ROUTE .COMPLEX Qty: 90 0RF Dose Instruction: Take 1 tablet by mouth once daily Rx Instructions: Take 1 tablet by mouth once daily isosorbide mononitrate 120 mg tablet extended release 24 hr 120 mg PO DAILY Qty: 90 3RF pravastatin 40 mg tablet 40 mg PO DAILY Qty: 90 3RF No Action (DME) lancets 18 gauge misc See Rx Instructions .Route Qty: 100 1RF Rx Instructions: As directed (DME) True Metrix Glucose Test Strip Strip See Rx Instructions .Route Qty: 100 0RF Rx Instructions: As directed Discharge Orders: Discharge Order (Routine); Ordered 01/03/23 Ordered By: Herberth Matson Referrals: [facility] Set-up [Other] (Call this number if you want In Home Services setup. They will ask you questions & based off your answers, you are given points. You have to have a certain amount of points to qualify. ) Lucy Ny FNP [Primary Care Provider] - Lisandro Mcgregor MD [Physician] - 7-10 days Discharge Diet: Usual diet Discharge Activity: Resume usual activity Patient Instructions: Managing Diabetes During Sick Days (DC), Hemoglobin A1c (GEN), Type 2 Diabetes in the Older Adult (DC), Diabetes and Exercise (DC), Type 2 Diabetes Management for Adults (DC), Opioid Safety Discharge Attestations Time Spent in Discharge Care*: greater than 30 min Specific Discharge Activities: educating patient, educating and/or supporting family/caregiver, discussing with pcp/other providers, documenting/other paperwork and evaluating patient/reviewing data Quality Metrics Clinical Quality Measures [ No reported AMI, CVA or VTE this stay] Coding Level of Care Code Acute Code for Chg Fwd Diagnoses Community acquired pneumonia J18.9 Atrial fibrillation with RVR I48.91 Sepsis A41.9 Acute kidney injury superimposed on chronic kidney disease N17.9; N18.9 Chronic intermittent hypoxia with obstructive sleep apnea G47.34; G47.33 Type 2 DM with CKD and hypertension E11.22; I12.9 Atrial fibrillation I48.11 Atrial fibrillation type: longstanding persistent Chronic lumbar radiculopathy M54.16 Chronic cervical radiculopathy M54.12 Benign prostatic hyperplasia with incomplete bladder emptying N40.1; R39.14 Restless legs syndrome G25.81
--- NOTE | 2023-01-03 17:23 | PC.NURSE ---
I&O comment: Patient voided 125 mL post catheter removal prior to discharge.
== END 2023-01-03 17:10 | disposition home or self-care (01) | DRG 871 ==
LOC: ER 12-31 00:55 → CSU 12-31 01:02
PROVIDERS: Student in an Organized Health Care Education/Training Program; Admitting Provider Internal Medicine; Emergency Provider Emergency Medicine; PCP Nurse Practitioner Family; Visit Provider Family Medicine
DX: A41.9 Sepsis, unspecified organism (principal); I50.33 Acute on chronic diastolic (congestive) heart failure; J18.9 Pneumonia, unspecified organism; N17.9 Acute kidney failure, unspecified; I13.0 Hypertensive heart and chronic kidney disease with heart failure and stage 1 through stage 4 chronic kidney disease, or unspecified chronic kidney disease; I48.11 Longstanding persistent atrial fibrillation; J44.1 Chronic obstructive pulmonary disease with (acute) exacerbation; J44.0 Chronic obstructive pulmonary disease with (acute) lower respiratory infection; E87.20 Acidosis, unspecified; E11.22 Type 2 diabetes mellitus with diabetic chronic kidney disease; N18.9 Chronic kidney disease, unspecified; E78.5 Hyperlipidemia, unspecified; N40.0 Benign prostatic hyperplasia without lower urinary tract symptoms; M54.16 Radiculopathy, lumbar region; M54.12 Radiculopathy, cervical region; G25.81 Restless legs syndrome; Z79.84 Long term (current) use of oral hypoglycemic drugs; Z79.01 Long term (current) use of anticoagulants; Z95.0 Presence of cardiac pacemaker; Z79.899 Other long term (current) drug therapy
CPT/HCPCS: 36415; 36416; 36600; 51702; 71045; 76770; 80048; 80053; 82805; 82962; 83605; 83735; 83880; 84145; 85025; 85378; 85610; 86140; 87040; 87426; 87641; 87804; 93005; 93306; 94640; 94660; 96365; 96367; 96372; 96376; 97110; 97116; 97162; 97530; 99285; J0282; J0456; J0696; J1815; J1940; J2920; J7030; J7050; J7060; J7626; Q0144

== ENCOUNTER → 2023-01-11 08:14 | Outpatient (BNVA) | payer MEDICARE, MEDICAID, SELFPAY | PROVIDERS: PCP Nurse Practitioner Family; Visit Provider Nurse Practitioner Family | DX: I48.11 Longstanding persistent atrial fibrillation (principal); Z95.0 Presence of cardiac pacemaker; I12.9 Hypertensive chronic kidney disease with stage 1 through stage 4 chronic kidney disease, or unspecified chronic kidney disease; E11.22 Type 2 diabetes mellitus with diabetic chronic kidney disease; N18.9 Chronic kidney disease, unspecified; Z79.84 Long term (current) use of oral hypoglycemic drugs | CPT/HCPCS: 99214 ==

== ENCOUNTER → 2023-01-12 11:38 | Outpatient (BNVA) | payer MEDICARE, MEDICAID, SELFPAY | PROVIDERS: PCP Nurse Practitioner Family; Visit Provider Nurse Practitioner Family | DX: N28.89 Other specified disorders of kidney and ureter (principal) | CPT/HCPCS: 80053 ==

== ENCOUNTER 2023-01-17 21:33 | Observation (INO) | payer MEDICARE, MEDICAID, SELFPAY ==
[2023-01-17 21:33] VITALS: BP 151/75; PULSE 68; RESP 24; TEMP 38.3; O2SAT 98; BMI 29.5
--- NOTE | 2023-01-17 21:40 | XRR_ITS ---
PROCEDURE INFORMATION: Exam: XR Chest Exam date and time: 01/17/2023 9:48 PM Age: 82 years old Clinical indication: Shortness of breath; Additional info: SOA, recent inpt tx for pneu TECHNIQUE: Imaging protocol: Radiologic exam of the chest. Views: 1 view. COMPARISON: CR (CHEST, ) 12/30/2022 11:37 PM FINDINGS: Tubes, catheters and devices: Pacemaker. Lungs: Emphysematous changes. Bibasilar atelectasis versus minimal infiltrate. Pleural spaces: Unremarkable. No pleural effusion. No pneumothorax. Heart/Mediastinum: Mild cardiomegaly. Bones/joints: Unremarkable. XR/XR chest 1V [id number] IMPRESSION: 1. Mild cardiomegaly. 2. Emphysematous changes. 3. Bibasilar atelectasis versus minimal infiltrate.
--- NOTE | 2023-01-17 21:40 | ECG_ITS ---
[facility] Test Date: 2023-01-17 Pat Name: Timothy Casey Department: Room: Gender: Male [employer] Worker: : 1940 Requested By: Roberta Montoya Order Number: [id number] Alberto MD: Jaison Duncan M.D. Measurements Intervals [place] Rate: 77 P: 66 DC: 214 QRS: 73 QRSD: 108 T: 89 QT: 409 QTc: 463 Interpretive Statements SINUS RHYTHM WITH FIRST DEGREE AV BLOCK Compared to ECG 12/30/2022 23:48:31 First degree AV block now present Atrial flutter no longer present Ventricular premature complex(es) no longer present Left posterior fascicular block no longer present T-wave abnormality no longer present Electronically Signed On 01-18-2023 14:28:08 CDT by Jaison Duncan M.D. [id number]
--- NOTE | 2023-01-17 21:42 | ED_ITS ---
HPI - Fever General: Chief Complaint: Shortness of Breath/Dyspnea Stated Complaint: SOB Time Seen by Provider: 01/17/23 21:35 Source: patient and EMS Mode of arrival: EMS Limitations: no limitations History of Present Illness: Patient presented to the emergency department today brought by EMS for evalu ation treatment of complaints of worsening shortness of breath. EMS indicated that they turned the patient's oxygen up from his typical baseline when they arrived and, gave the patient a DuoNeb treatment, albuterol treatment and, as he was still complaining of some discomfort in his upper chest and lower neck, provided him a nitro. Patient had some improvement of his discomfort with nitro however, is beginning to complain of return of pain. Patient states he feels ill. He has been warm but has not checked his temperature at home as he does not have a thermometer. Chart review shows a couple of weeks ago he was admitted for pneumonia. He states when he discharged he did not feel he was completely over his illness and, since being discharged has continued to feel ill and progressively worsened. Chart review shows that on 12/30 patient came to the emergency department by EMS found to be in A-fib with RVR and diagnosed with elevated lactic and pneumonia. He also appeared fluid overloaded on chest x-ray. He was placed in patient and after discharge, had follow-up with primary care. Patient was still on 3 L by nasal cannula after his hospital discharge. Patient has a significant history of A-fib with implantable pacemaker, hypertension, diabetes, CKD, and CHF. Review of Systems General: Reports: 10 or more systems reviewed and unremarkable except in HPI and below PFSH ED PFSH: Medical History Atrial fibrillation Benign prostatic hyperplasia with incomplete bladder emptying Chronic cervical radiculopathy Chronic low back pain Chronic lumbar radiculopathy DDD (degenerative disc disease), lumbar Dizziness Encounter for long-term opiate analgesic use Encounter for long-term opiate analgesic use Facet joint disease Fibromyalgia Hx of diabetic foot ulcer Hyperlipidemia Hypertension Long-term use of high-risk medication continue to monitor use Pacemaker Restless legs syndrome Type 2 DM with CKD and hypertension Uncontrolled type 2 DM with peripheral circulatory disorder Surgical History History of permanent cardiac pacemaker placement History of umbilical hernia repair S/P cardiac pacemaker procedure S/P laser cataract surgery 2 YEARS AGO BILAT Family History Father , 80-house fire No problems noted. Mother , 70 Cancer Brother Cancer Lung disease Chronic kidney disease (CKD) Sister Cancer CAD (coronary artery disease) Diabetes Daughter Diabetes Family/Other Diabetes Denies family history of Clotting disorder Dementia Suicide Anesthesia complication Bleeding disorder Stroke Social History Smoking and tobacco status: never smoked Second hand smoke exposure: No Alcohol intake: never Substance/Drug Use: never Adopted: No Marital status: / Current occupational status: retired Physical Exam Const: COMMON NORMALS: no acute distress, patient oriented x3 and alert OTHER: Patient appears fatigued but is able to answer his own history. Patient is febrile at 100.9 Eye: COMMON NORMALS: Equal, round and reactive pupils present, EOMs intact bilaterally and conjunctivae normal CONJUNCTIVA: Yes conjunctivae normal PUPIL: Yes Equal, round and reactive pupils present Neck/C-Spine: COMMON NORMALS: no JVD Lymph: LYMPHATIC: no lymphadenopathy noted Resp: COMMON NORMALS: normal respiratory effort, No retractions and No use of accessory muscles OTHER: No signs of significant wheezing in either lung field. Somewhat diminished lung sounds bilaterally. Cardio: COMMON NORMALS: no JVD and regular rate RATE: regular rate GI: OTHER: Abdomen is soft and nontender to palpation. : COMMON NORMALS: Yes no CVA tenderness BLADDER/KIDNEY EXAM: Yes no CVA tenderness Back/Pelvis: COMMON NORMALS: no CVA tenderness, thoracic and lumbar spine normal to inspection and thoraco-lumbar ROM normal Extremity: COMMON NORMALS: normal to inspection, full ROM and no pedal edema Neuro: COMMON NORMALS: patient oriented x3 SENSORIUM/ORIENTATION: Yes alert Skin: COMMON NORMALS: no rashes or lesions noted and turgor normal GENERAL SKIN EXAM: no rashes or lesions noted and turgor normal Course Vital Signs: Vital signs: Vital Signs Temperature 99.2 F 01/18/23 00:44 Pulse Rate 63 01/18/23 00:44 Respiratory Rate 22 H 01/18/23 00:44 Blood Pressure 155/75 01/18/23 00:44 Pulse Oximetry 96 01/18/23 00:44 Oxygen Delivery Me thod Nasal Cannula 01/17/23 22:30 Oxygen Flow Rate 3 01/17/23 21:33 MDM - Fever Medical Decision Making Patient presents to the emergency department today brought by EMS for complaints of shortness of breath and general ill feeling. EMS had indicated patient's oxygen was low when they got there and they increased his baseline 3 L by nasal cannula up to 6. They provided albuterol and DuoNeb in route and, after arrival here to the ER, we were able to turn his oxygen down to 3 L and keep his oxygen well within the mid to upper 90%. Patient was found to be febrile on arrival. Chest x-ray was concerning for bilateral lower lobe pneumonia which, having given his recent hospital stay, is more concerning for hospital-acquired pneumonia. I spoke with Dr. Evans who encouraged treatment with Vanco and Zosyn based on these concerns. Patient has no white blood cell count no lactic elevation. He does not have a significantly elevated BNP and repeat troponins only showed a positive delta change of 3. Patient did not show significant fluid overload so, 500 cc bolus for sepsis protocol was provided. Patient also has blood cultures pending. Given that the patient appears stable but, most l ikely requires continued treatment and monitoring for a hospital-acquired pneumonia, I did reach out and speak with the hospitalist. Hospitalist will be evaluating the patient at bedside for potential admission. Patient is being admitted for continued monitoring and treatment of hospital acquired pneumonia. We will defer care at this time to the hospitalist services for further treatment and intervention. Differential Diagnosis Unlikely abdominal pain (MS, CHF exacerbation, pneumonia, sepsis) Lab Data 01/17/23 21:47 01/17/23 21:47 Radiology Impressions Chest X-Ray 01/17/23 21:40 IMPRESSION: 1. Mild cardiomegaly. 2. Emphysematous changes. 3. Bibasilar atelectasis versus minimal infiltrate. Laboratory Results WBC 9.7 10^3/uL (4.0-10.0) 01/17/23 21:47 RBC 4.23 10^6/uL (4.1-5.3) 01/17/23 21:47 Hgb 11.7 g/dL (11.7-16.6) 01/17/23 21:47 Hct 36.3 % (42.0-52.0) L 01/17/23 21:47 MCV 85.8 fl (80-94) 01/17/23 21:47 MCH 27.7 pg (28.0-34.0) L 01/17/23 21:47 MCHC 32.2 g/dL (30.0-36.0) 01/17/23 21:47 RDW 15.4 % (12.1-15.1) H 01/17/23 21:47 Plt Count 324 10^3/cmm (130-400) 01/17/23 21:47 MPV 9.4 fL (7.4-10.4) 01/17/23 21:47 Neut % (Auto) 48.8 % 01/17/23 21:47 Lymph % (Auto) 37.2 % 01/17/23 21:47 [place] % (Auto) 8.8 % 01/17/23 21:47 Eos % (Auto) 3.8 % 01/17/23 21:47 Baso % (Auto) 1.0 % 01/17/23 21:47 Neut # (Auto) 4.73 10^3/uL (1.8-7.7) 01/17/23 21:47 Lymph # (Auto) 3.6 10^3/uL (0.8-4.8) 01/17/23 21:47 [place] # (Auto) 0.9 10^3/uL (0.2-0.9) 01/17/23 21:47 Eos # (Auto) 0.4 10^3/uL (0.0-0.8) 01/17/23 21:47 Baso # (Auto) 0.1 10^3/uL (0.0-0.1) 01/17/23 21:47 Nucleated RBC % (auto) 0 % 01/17/23 21:47 Nucleated RBCs # 0.0 /100WBC 01/17/23 21:47 ESR 77 mm/hr (0-10) H 01/17/23 21:47 Sodium 131 mmol/L (136-145) L 01/17/23 21:47 Potassium 4.1 mmol/L (3.5-5.1) 01/17/23 21:47 Chloride 96 mmol/L (98-107) L 01/17/23 21:47 Carbon Dioxide 22 mmol/L (22-29) 01/17/23 21:47 Anion Gap 17.1 (5-19) 01/17/23 21:47 BUN 18 mg/dL (8-23) 01/17/23 21:47 Creatinine 1.2 mg/dL (0.7-1.2) 01/17/23 21:47 GFR Calculation Not Reportable 01/17/23 21:47 Glucose 273 mg/dL (65-115) H 01/17/23 21:47 Calculated Osmolality 284 mOsm/kg (285-295) L 01/17/23 21:47 Lactic Acid 2.2 mmol/L (0.5-2.2) 01/17/23 21:47 Calcium 8.3 mg/dL (8.5-10.5) L 01/17/23 21:47 Total Bilirubin 0.4 mg/dL (0.15-1.2) 01/17/23 21:47 AST 18 U/L (0-40) 01/17/23 21:47 ALT 12 U/L (0-41) 01/17/23 21:47 Alkaline Phosphatase 90 U/L (40-130) 01/17/23 21:47 Troponin T Gen 5 ng/L 32 ng/L (0-15) H 01/17/23 21:47 Troponin T 120 Minute 35.67 ng/L (0-15) H 01/17/23 23:53 Delta Troponin T 3.67 ABS# (0-10) 01/17/23 23:53 C-Reactive Protein 6.9 mg/L (0.0-4.9) H 01/17/23 21:47 NT-Pro-B Natriuret Pep 330 pg/mL (0-450) 01/17/23 21:47 Total Protein 6.6 g/dL (6.6-8.7) 01/17/23 21:47 Albumin 3.8 g/dL (3.5-5.2) 01/17/23 21:47 Globulin 2.8 g/dL (1.3-4.6) 01/17/23 21:47 Procalcitonin 0.06 ng/mL (0-0.5) 01/17/23 21:47 Urine Color Colorless (Yellow) 01/17/23 22:04 Urine Appearance Clear (CLEAR) 01/17/23 22:04 Urine pH 7 (5-7) 01/17/23 22:04 Ur Specific [place] 1.015 (1.005-1.030) 01/17/23 22:04 Urine Protein Neg (Negative) 01/17/23 22:04 Urine Glucose (UA) 4+ (Normal) H 01/17/23 22:04 Urine Ketones Negative (Negative) 01/17/23 22:04 Urine Blood Neg (Negative) 01/17/23 22:04 Urine Nitrate Negative (Negative) 01/17/23 22:04 Urine Bilirubin Neg (Negative) 01/17/23 22:04 Urine Urobilinogen Norm mg/dL (Negative) 01/17/23 22:04 Ur Leukocyte Esterase Negative (Negative) 01/17/23 22:04 Discharge Plan Discharge Admit Provider: Neal Streeter Condition: Stable Coding Level of Care Code ED 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
[2023-01-17 21:53] LABS: Basophils # 0.1 10^3/uL (0.0-0.1); Eosinophils # 0.4 10^3/uL (0.0-0.8); Eosinophils % 3.8 %; Hematocrit 36.3 % (42.0-52.0); Hemoglobin 11.7 g/dL (11.7-16.6); Lymphocytes # 3.6 10^3/uL (0.8-4.8); Lymphocytes % 37.2 %; Mean Corpuscular HGB Conc 32.2 g/dL (30.0-36.0); Mean Corpuscular Hemoglobin 27.7 pg (28.0-34.0); Mean Corpuscular Volume 85.8 fl (80-94); Mean Platelet Volume 9.4 fL (7.4-10.4); Monocytes # 0.9 10^3/uL (0.2-0.9); Monocytes % 8.8 %; Neutrophils # 4.73 10^3/uL (1.8-7.7); Neutrophils % 48.8 %; Nucleated Red Blood Cells % 0 %; Platelet Count 324 10^3/cmm (130-400); Red Blood Count 4.23 10^6/uL (4.1-5.3); Red Cell Distribution Width 15.4 % (12.1-15.1); White Blood Count 9.7 10^3/uL (4.0-10.0)
[2023-01-17] MEDS: acetaminophen 500 mg Tablet 1000 MG PO (21:57)
[2023-01-17 22:00] VITALS: BP 170/84; O2SAT 95
[2023-01-17 22:00] LABS: Erythrocyte Sedimentation Rate 77 mm/hr (0-10)
[2023-01-17 22:10] LABS: Add Urine Microscopic? NO; Charge for UA Resulting for Rev
[2023-01-17 22:11] LABS: Urine Appearance Clear (CLEAR); Urine Color Colorless (Yellow)
[2023-01-17 22:12] LABS: Bilirubin Urine Neg (Negative); Blood Urine Neg (Negative); Glucose Urine UA 4+ (Normal); Ketones Urine Negative (Negative); Leukocyte Esterase Urine Negative (Negative); Nitrate Urine Negative (Negative); Protein Urine Neg (Negative); Specific Gravity, Urine 1.015 (1.005-1.030); Urobilinogen Urine Norm (Negative); pH Urine 7 (5-7)
[2023-01-17 22:12] LABS: Troponin T (5th) Once 32 ng/L (0-15)
[2023-01-17 22:13] LABS: Lactic Sepsis W/Reflex 2.2 mmol/L (0.5-2.2)
[2023-01-17 22:14] LABS: C Reactive Protein 6.9 mg/L (0.0-4.9)
[2023-01-17 22:21] LABS: Procalcitonin 0.06 ng/mL (0-0.5)
[2023-01-17 22:22] LABS: Alanine Aminotransferase 12 U/L (0-41); Albumin Level 3.8 g/dL (3.5-5.2); Alkaline Phosphatase 90 U/L (40-130); Blood Urea Nitrogen 18 mg/dL (8-23); Calcium 8.3 mg/dL (8.5-10.5); Carbon Dioxide 22 mmol/L (22-29); Chloride 96 mmol/L (98-107); Globulin 2.8 g/dL (1.3-4.6); Glucose 273 mg/dL (65-115); NT Pro B Type Natriuretic Pept 330 pg/mL (0-450); Osmolality Calculated 284 mOsm/kg (285-295); Sodium 131 mmol/L (136-145); Total Bilirubin 0.4 mg/dL (0.15-1.2); Total Protein 6.6 g/dL (6.6-8.7)
[2023-01-17 22:29] LABS: Anion Gap 17.1 (5-19); Aspartate Amino Transferase 18 U/L (0-40); Potassium 4.1 mmol/L (3.5-5.1)
[2023-01-17 22:30] VITALS: BP 146/77; O2SAT 97
[2023-01-17] MEDS: piperacillin-tazobactam 4.5 GM in sodium chloride 0.9% (plus) 50 ML IV (22:32)
[2023-01-17 23:00] VITALS: BP 149/68; O2SAT 95
[2023-01-17 23:30] VITALS: BP 124/72; O2SAT 95
[2023-01-17] MEDS: vancomycin 1,500 MG/300 ML PIGGYBACK 200 MG IV (23:36)
[2023-01-17] MEDS: sodium chloride 0.9% 500 ML IV (23:50)
[2023-01-18] VITALS (20 sets, daily range): BP systolic 111–187; BP diastolic 49–84; PULSE 63–89; RESP 15–25; TEMP 36.4–37.3; O2SAT 95–99
[2023-01-18 00:52] LABS: Troponin 5 2HR 35.67 ng/L (0-15)
[2023-01-18 00:55] LABS: Troponin 5 2HR Delta 3.67 ABS# (0-10)
--- NOTE | 2023-01-18 01:59 | CTR_ITS ---
PROCEDURE INFORMATION: Exam: CTA Chest With Contrast Exam date and time: 01/18/2023 2:17 AM Age: 82 years old Clinical indication: Shortness of breath; Prior surgery; Surgery date: 6+ months; Surgery type: Pacemaker; Additional info: SOB TECHNIQUE: Imaging protocol: Computed tomographic angiography of the chest with contrast. 3D rendering (Not supervised by radiologist): MIP and/or 3D reconstructed images were created by the technologist. Radiation optimization: All CT scans at this facility use at least one of these dose optimization techniques: automated exposure control; mA and/or kV adjustment per patient size (includes targeted exams where dose is matched to clinical indication); or iterative reconstruction. Contrast material: OMNI 350; Contrast volume: 85 ml; Contrast route: INTRAVENOUS (IV); REPORTING DATA: Count of CT and Cardiac NM exams in prior 12 months: This patient has received 2 known CTs and 0 known cardiac nuclear medicine studies in the 12 months prior to the current study. COMPARISON: CR (CHEST, ) 01/17/2023 9:48 PM RADIATION DOSE METRICS: Total DLP (mGy-cm): 456.01 FINDINGS: Pulmonary arteries: No pulmonary emboli. Aorta: No aortic aneurysm. Lungs: There are patchy bilateral ground-glass opacities which may be seen with infectious infiltrates in the appropriate clinical context. Bronchiectasis noted in the lower lobes. T Pleural spaces: Unremarkable. No pneumothorax. No pleural effusion. Heart: Cardiomegaly. Lymph nodes: Prominent hilar, subcarinal mediastinal lymph nodes. Bones/joints: Unremarkable. No acute fracture. Soft tissues: Unremarkable. CT/CT angio chest PE [facility] [id number] IMPRESSION: 1. Patchy bilateral ground-glass opacities which may be seen with infectious infiltrates in the appropriate clinical context. 2. Prominent hilar, subcarinal mediastinal lymph nodes.
--- NOTE | 2023-01-18 02:05 | USCV_ITS ---
Timothy Casey Age: 82 Gender: M : 1940 Exam Date: 01/18/2023 02:42 Ordering Phys: Neal Streeter MD Technologist: KYLE [place] [facility] [place]: SHORTNESS OF BREATH BP: 187 / 84 HR: 65 Rhythm: Sinus Technical Quality: Adequate MEASUREMENTS (Male / Female) Normal Values 2D ECHO LVOT Diameter 2.0 cm LV Ejection Fraction MOD 2C 64.5 % LV Ejection Fraction 2C AL 65.9 % LA Diameter 3.1 cm LA Width 3.0 cm LA Height 6.1 cm RA Width 2.9 cm RA Height 5.9 cm Aorta at Sinotubular Diameter 2.5 cm IVC Diameter 1.7 cm M-MODE Aortic Annulus Diameter 3.5 cm LA Ao Ratio MM 0.9 MV E Point Septal Separation 0.3 cm DOPPLER Right Atrial Pressure 3.0 mmHg FINDINGS Left Ventricle Normal left ventricular size, systolic function and wall thickness, with no regional wall motion abnormalities. Left ventricular ejection fraction is estimated at 55%. Right Ventricle Normal right ventricular size and systolic function. Catheter/pacemaker wire visualized in the right ventricle. Normal right ventricular systolic pressure. Right Atrium The right atrium is normal in size. Left Atrium The left atrium is normal in size. Mitral Valve Structurally normal mitral valve. Trace mitral valve regurgitation. Aortic Valve Structurally normal aortic valve without significant sclerosis or stenosis. There is no aortic regurgitation. Tricuspid Valve Structurally normal tricuspid valve. Trace to mild tricuspid valve regurgitation. Pulmonic Valve Pulmonic valve not well visualized. Pericardium Normal pericardium without effusion. Aorta Normal ascending aorta dimension. IVC The inferior vena cava appears normal. CONCLUSIONS Normal left ventricular size, systolic function and wall thickness, with no regional wall motion abnormalities. Left ventricular ejection fraction is estimated at 55%. Normal right ventricular size and systolic function. Catheter/pacemaker wire visualized in the right ventricle. Normal right ventricular systolic pressure. Structurally normal mitral valve. Trace mitral valve regurgitation. Previous echo was done only 2 weeks ago. There has been no change. Dr. Jaison Duncan MD (Electronically Signed) Final Date: 18 January 2023 08:38 S
--- NOTE | 2023-01-18 02:09 | P.HP_ITS ---
Providers/Chief Complaint Primary Care Provider: BONY Zavala Chief Complaint: SOB History of Present Illness Timothy Casey is a 82 year old male with a past medical history of diabetes, COPD, hypertension, hyperlipidemia, atrial fibrillation who presents to [facility] to complaints of shortness of breath. Patient tells me that when he got to the hospital during his last hospitalization, he thought he would feel better but he continued to feel short of breath, feels short of breath with exertion, has fatigue, has malaise, has a chronic nonproductive cough, no lightheadedness, no dizziness, no chest pain, no palpitations, no calf pain, no calf swelling. Review of Systems Const: Reports: fatigue and malaise; Denies: fever(s) or chills Eyes: Denies: change in vision Card: Denies: chest pain, palpitations or swelling of feet/ankles Resp: Reports: dyspnea; Denies: non-productive cough GI: Denies: abdominal pain : Denies: flank pain or difficulty urinating Neuro: Denies: headache(s) Medications/Allergies Home Medications Medication Instructions Recorded Confirmed Last Taken Type lancets 18 gauge #100 ea 04/06/22 01/12/23 Unknown Rx hydralazine 50 mg tablet 75 mg PO Q8H #405 tabs 04/09/22 01/12/23 Unknown Rx blood sugar diagnostic (True #100 ea 06/24/22 01/12/23 Unknown Rx Metrix Glucose Test Strip) amlodipine 10 mg tablet 10 mg PO DAILY #100 tabs 10/06/22 01/12/23 Unknown Rx isosorbide mononitrate 120 mg 120 mg PO DAILY #90 tabs 11/12/22 01/12/23 Unknown Rx tablet,extended release 24 hr pravastatin 40 mg tablet 40 mg PO DAILY #90 tabs 12/08/22 01/12/23 Unknown Rx furosemide 20 mg tablet 20 mg PO DAILY #30 tabs 01/03/23 01/12/23 Unknown Rx glimepiride 4 mg tablet See Rx Instructions .Route 01/04/23 01/12/23 Unknown Rx .COMPLEX #180 tabs rivaroxaban 20 mg tablet (Xarelto) 20 mg PO DAILY #90 tabs 01/04/23 01/12/23 Unknown Rx albuterol sulfate 0.63 mg/3 mL 0.63 mg (3 mL) inhalation QID PRN 01/07/23 01/12/23 Unknown Rx solution for nebulization shortness of breath or wheezing #90 mL gabapentin 100 mg capsule See Rx Instructions .Route 01/08/23 01/12/23 Unknown Rx .COMPLEX #90 caps metformin 750 mg tablet,extended See Rx Instructions .Route 01/08/23 01/12/23 Unknown Rx release 24 hr .COMPLEX #90 tabs pantoprazole 40 mg tablet,delayed See Rx Instructions .Route 01/08/23 01/12/23 Unknown Rx release .COMPLEX #90 tabs tamsulosin 0.4 mg capsule See Rx Instructions .Route 01/08/23 01/12/23 Unknown Rx .COMPLEX #90 caps amiodarone 200 mg tablet (Pacerone) 200 mg PO BID #180 tabs 01/11/23 01/12/23 Unknown Rx nitroglycerin 0.4 mg sublingual 0.4 mg sublingual Q5M PRN chest 01/11/23 01/12/23 Unknown Rx tablet (Nitrostat) pain #30 tabs albuterol sulfate 90 mcg/actuation 1 inh inhalation Q6H #8.5 grams 01/12/23 Unknown Rx aerosol inhaler (ProAir HFA) nebulizer kit #1 ea 01/12/23 01/12/23 Unknown Rx nebulizer #1 ea 01/14/23 Unknown Rx Allergies Allergy/AdvReac Type Severity Reaction Status Date / Time methadone Allergy NA Verified 01/17/23 21:34 chlorthalidone AdvReac Severe nausea Verified 01/17/23 21:34 PFSH Acute PFSH: Medical History Atrial fibrillation Benign prostatic hyperplasia with incomplete bladder emptying Chronic cervical radiculopathy Chronic low back pain Chronic lumbar radiculopathy DDD (degenerative disc disease), lumbar Dizziness Encounter for long-term opiate analgesic use Encounter for long-term opiate analgesic use Facet joint disease Fibromyalgia Hx of diabetic foot ulcer Hyperlipidemia Hypertension Long-term use of high-risk medication continue to monitor use Pacemaker Restless legs syndrome Type 2 DM with CKD and hypertension Uncontrolled type 2 DM with peripheral circulatory disorder Surgical History History of permanent cardiac pacemaker placement History of umbilical hernia repair S/P cardiac pacemaker procedure S/P laser cataract surgery 2 YEARS AGO BILAT Family History Father , 80-house fire No problems noted. Mother , 70 Cancer Brother Cancer Lung disease Chronic kidney disease (CKD) Sister Cancer CAD (coronary artery disease) Diabetes Daughter Diabetes Family/Other Diabetes Denies family history of Clotting disorder Dementia Suicide Anesthesia complication Bleeding disorder Stroke Social History Smoking and tobacco status: never smoked Second hand smoke exposure: No Alcohol intake: never Substance/Drug Use: never Adopted: No Marital status: / Current occupational status: retired Vitals/I&O/Wt Last Vital Signs Temp 99.2 F 01/18/23 00:44 Pulse 63 01/18/23 00:44 Resp 22 H 01/18/23 00:44 BP 155/75 01/18/23 00:44 Pulse Ox 96 01/18/23 00:44 O2 Del Method Nasal Cannula 01/17/23 22:30 O2 Flow Rate 3 01/17/23 21:33 01/17/23 01/17/23 01/18/23 14:59 22:59 06:59 Intake Total 50 / 50 Balance 50 / 50 Weight last 48 hrs Weight 101.605 kg Physical Exam Const: COMMON NORMALS: no acute distress and patient oriented x3 Eye: COMMON NORMALS: Equal, round and reactive pupils present and EOMs intact bilaterally Neck/C-Spine: COMMON NORMALS: full ROM and no lymphadenopathy Resp: COMMON NORMALS: normal respiratory effort, No retractions, No use of accessory muscles and clear to auscultation bilaterally AUSCULTATION: clear to auscultation bilaterally Cardio: COMMON NORMALS: regular rate, regular rhythm, S1 normal heart sound present and S2 normal heart sound present RATE: regular rate RHYTHM: regular rhythm HEART SOUNDS: S1 normal heart sound present and S2 normal heart sound present GI: COMMON NORMALS: Normal to inspection, nondistended, normoactive bowel so unds present, Soft to palpation and non-tender Extremity: COMMON NORMALS: no pedal edema Neuro: COMMON NORMALS: patient oriented x3, CN's II-XII intact bilaterally, moves all extremities and no focal motor deficits Psych: COMMON NORMALS: mental status grossly normal Data 01/17/23 21:47 01/17/23 21:47 Micro: Microbiology 01/17/23 22:22 Blood Culture - Preliminary Blood SPECIMEN COLLECTED 01/17/23 22:19 Blood Culture - Preliminary Blood SPECIMEN COLLECTED A&P Assessment and plan (1) COPD (chronic obstructive pulmonary disease): (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: (3) Hypertension: Qualifiers: Hypertension type: essential hypertension Qualified Code(s): I10 - Essential (primary) hypertension (4) Hyperlipidemia: Qualifiers: Hyperlipidemia type: mixed hyperlipidemia Qualified Code(s): E78.2 - Mixed hyperlipidemia (5) Benign prostatic hyperplasia with incomplete bladder emptying: (6) Shortness of breath: (7) Pneumonia: Plan Shortness of breath -Possibly secondary to underlying pneumonia, continue vancomycin and cefepime -Does not look fluid overloaded, BNP is not elevated, hold off on Lasix -Looks dry slight dehydration, will give him IV fluids -No wheezing, DuoNeb, budesonide and I doubt that this is a COPD exacerbation -We will get a CT angiogram of the chest -Has no calf pain, calf swelling -We will order cardiac echo -Vancomycin, cefepime -Sputum culture, blood cultures -Continue hypertension medications -Continue Xarelto -DNR/DNI Attestations Medical Necessity Statement*: Patient requires hospitalization, inpatient, greater than 2 midnights, for shortness of breath secondary to pneumonia Diagnoses COPD (chronic obstructive pulmonary disease) J44.9 Type 2 DM with CKD and hypertension E11.22; I12.9 Hypertension I10 Hypertension type: essential hypertension Hyperlipidemia E78.2 Hyperlipidemia type: mixed hyperlipidemia Benign prostatic hyperplasia with incomplete bladder emptying N40.1; R39.14 Shortness of breath R06.02 Pneumonia J18.9
[2023-01-18] MEDS: iohexol 350 mg/mL 500 mL Btl (per mL) IV (02:19)
[2023-01-18 03:26] LABS: C Reactive Protein 5.9 mg/L (0.0-4.9); Lactic Sepsis W/Reflex 1.1 mmol/L (0.5-2.2)
[2023-01-18 03:34] LABS: Procalcitonin 0.07 ng/mL (0-0.5)
--- NOTE | 2023-01-18 04:03 | PC.PHAR ---
Pharmacokinetic dosing service Date: 01/18/23 Time: 402 Objective: Patient: Timothy Casey Floor: 252-1 Age: 82 yo Serum creatinine: 1.2 mg/dL Height: 73.0 Inches Weight (kg): 101.605 Diagnosis: Relevant medical/social history: Cultures and sensitivities: Other labs: Assessment: IBW (kg): 79.90 Dosing wt(kg): 101.605 Estimated Creatinine clearance (ml/min): 53.6 CRCL method: Cockcroft and Gault using ibw(default). Drug selected: Vancomycin Loading dose (mg): 0 Vd (liters): 91.4 (factor used: 0.9 L/kg) Moose (hr-1): 0.049 Half life (hrs): 14.15 Recommended dose: 1500 mg Interval: 18 hrs Infusion time (hrs): 1.5 Predicted peak (mcg/mL): 27.0 Predicted trough (mcg/mL): 12.03 Total body weight is being used for vancomycin dosing. Renal function is stable [ ] /unstable [ ] Recommendations: Give Vancomycin 1500 mg q 18 hrs with an expected Cpeak of 27.0 mcg/ml and an expected Ctrough of 12.03 mcg/ml Renal dosing of other antibiotics (review renal dosing of other medications and list guidelines here): Thank you for the consult, will continue to follow. Signature: Libra Jessica [facility]
[2023-01-18 04:22] LABS: Chol HDL Ratio 3.59 mg/dL (1.0-5.00); Cholesterol 165 mg/dL (0-200); HDL Cholesterol 46 mg/dL (60-100); LDL Cholesterol Calculated 106 mg/dL (50-129); Thyroid Stimulating Hormone 4.75 uIU/mL (0.27-4.20); Triglycerides 66 mg/dL (0-150)
[2023-01-18] MEDS: hyDRALAzine 50 mg Tablet 75 MG PO ×2 (04:38→19:34)
[2023-01-18] MEDS: sodium chloride 0.9% 1,000 ML 75 ML IV (04:38)
[2023-01-18] MEDS: enoxaparin 40 mg/0.4 mL Syringe SUBCUT (04:39)
[2023-01-18 06:44] LABS: Glucose Point of Care 163 mg/dL (70-110)
[2023-01-18] MEDS: ipratropium-albuterol 3 mL Neb INHALATION ×3 (08:08→19:06)
[2023-01-18] MEDS: budesonide 0.5 mg/2 mL Neb INHALATION ×2 (08:08→19:06)
[2023-01-18] MEDS: insulin lispro 100 unit/1 mL SUBCUT ×3 (08:35→17:35)
[2023-01-18] MEDS: rivaroxaban 10 mg Tablet 20 MG PO (08:36)
[2023-01-18] MEDS: pantoprazole DR 40 mg Tablet PO (08:36)
[2023-01-18] MEDS: tamsulosin 0.4 mg Capsule PO (08:36)
[2023-01-18] MEDS: amlodipine 10 mg Tablet PO (08:36)
[2023-01-18] MEDS: isosorbide mononitrate ER 60 mg Tablet 120 MG PO (08:36)
[2023-01-18] MEDS: atorvastatin 40 mg Tablet 20 MG PO (08:37)
[2023-01-18] MEDS: gabapentin 100 mg Capsule PO (08:37)
[2023-01-18] MEDS: amiodarone 200 mg Tablet PO ×2 (08:37→17:19)
[2023-01-18 11:05] LABS: Glucose Point of Care 281 mg/dL (70-110)
[2023-01-18] MEDS: cefepime 1,000 MG in sodium chloride 0.9% (plus) 50 ML 100 MG IV (15:45)
--- NOTE | 2023-01-18 15:46 | PM.MISC ---
Miscellaneous Note Note: Overnight HPI has been reviewed, his vitals and labs have been reviewed, patient is currently complaining of generalized weakness. Noted Tmax overnight was:100.9. Limited 2D echo report has been reviewed. Currently has been continued on broad-spectrum antibiotics vancomycin and cefepime.
[2023-01-18 17:03] LABS: Glucose Point of Care 287 mg/dL (70-110)
[2023-01-18] MEDS: vancomycin 1,500 MG/300 ML PIGGYBACK 200 MG IV (17:19)
[2023-01-18 21:25] LABS: Glucose Point of Care 313 mg/dL (70-110)
[2023-01-19] VITALS (14 sets, daily range): BP systolic 111–129; BP diastolic 52–61; PULSE 62–79; RESP 15–18; TEMP 36.6–37.2; O2SAT 93–99
[2023-01-19] MEDS: cefepime 1,000 MG in sodium chloride 0.9% (plus) 50 ML 100 MG IV ×2 (01:59→21:59)
[2023-01-19 05:01] LABS: Basophils # 0.1 10^3/uL (0.0-0.1); Basophils % 1.3 %; Eosinophils # 0.5 10^3/uL (0.0-0.8); Eosinophils % 6.4 %; Hematocrit 33.5 % (42.0-52.0); Hemoglobin 10.5 g/dL (11.7-16.6); Lymphocytes % 24.5 %; Mean Corpuscular HGB Conc 31.3 g/dL (30.0-36.0); Mean Corpuscular Hemoglobin 27.9 pg (28.0-34.0); Mean Corpuscular Volume 88.9 fl (80-94); Mean Platelet Volume 9.4 fL (7.4-10.4); Monocytes # 0.7 10^3/uL (0.2-0.9); Monocytes % 8.7 %; Neutrophils # 4.68 10^3/uL (1.8-7.7); Neutrophils % 58.7 %; Nucleated Red Blood Cells % 0 %; Platelet Count 265 10^3/cmm (130-400); Red Blood Count 3.77 10^6/uL (4.1-5.3); Red Cell Distribution Width 15.7 % (12.1-15.1)
[2023-01-19] MEDS: enoxaparin 40 mg/0.4 mL Syringe SUBCUT (05:13)
[2023-01-19] MEDS: hyDRALAzine 50 mg Tablet 75 MG PO (05:13)
[2023-01-19 05:20] LABS: Alanine Aminotransferase 13 U/L (0-41); Albumin Level 3.5 g/dL (3.5-5.2); Alkaline Phosphatase 61 U/L (40-130); Anion Gap 13.4 (5-19); Aspartate Amino Transferase 28 U/L (0-40); Blood Urea Nitrogen 16 mg/dL (8-23); Calcium 8.1 mg/dL (8.5-10.5); Carbon Dioxide 25 mmol/L (22-29); Chloride 100 mmol/L (98-107); Globulin 2.7 g/dL (1.3-4.6); Glucose 219 mg/dL (65-115); Osmolality Calculated 286 mOsm/kg (285-295); Phosphorus 2.9 mg/dL (2.5-4.5); Potassium 4.4 mmol/L (3.5-5.1); Sodium 134 mmol/L (136-145); Total Bilirubin 0.4 mg/dL (0.15-1.2); Total Protein 6.2 g/dL (6.6-8.7)
[2023-01-19 06:40] LABS: Glucose Point of Care 178 mg/dL (70-110)
[2023-01-19] MEDS: budesonide 0.5 mg/2 mL Neb INHALATION ×2 (07:29→20:34)
[2023-01-19] MEDS: ipratropium-albuterol 3 mL Neb INHALATION ×4 (07:29→20:34)
[2023-01-19] MEDS: insulin lispro 100 unit/1 mL SUBCUT ×3 (08:45→18:09)
[2023-01-19] MEDS: rivaroxaban 10 mg Tablet 20 MG PO (08:46)
[2023-01-19] MEDS: tamsulosin 0.4 mg Capsule PO (08:46)
[2023-01-19] MEDS: atorvastatin 40 mg Tablet 20 MG PO (08:46)
[2023-01-19] MEDS: gabapentin 100 mg Capsule PO (08:46)
[2023-01-19] MEDS: amlodipine 10 mg Tablet PO (08:46)
[2023-01-19] MEDS: isosorbide mononitrate ER 60 mg Tablet 120 MG PO (08:46)
[2023-01-19] MEDS: pantoprazole DR 40 mg Tablet PO (08:46)
[2023-01-19] MEDS: amiodarone 200 mg Tablet PO ×2 (08:46→17:14)
--- NOTE | 2023-01-19 10:06 | PC.CHAP ---
Pastoral Care Encounter/Spiritual Assessment Type of Contact [] Declined agronomy teacher visit [] Patient/Family/Request visit [] Outpatient visit [] Follow-up visit [] Physician referral [] Code/Alert [x] Routine visit [] Staff referral [] Actively dying [] Patient sleeping [] Family support [] [] Out of room [] Palliative care [] [] Receiving care in room [] Pre-surgical visit [] Trauma [] Long length of stay [] ICU visit [] Other: Relational/Emotional Strength [x] Patient feels connected with others/family/visitors/staff [] Distress [] Loneliness/isolation [] Abandonment Spirituality of Patient [x] Person of Yovana [] Attends Religious of their Yovana [x] Believes in Prayer [] Reads Bible or Episcopalian materials [] There are Spiritual issues to be addressed Carpentry Specialist Interventions [x] Prayer [] Active listening [] Non-anxious presence [x] Spiritual/emotional support [] Crisis/trauma care [] Spiritual counseling [] Bereavement support [] Provided bereavement packet [] Provided Bible/devotional materials [] Provided toy/stuffed animal, coloring book to patient or family member [] Provided Communion [] Anointing/[place] [] Salvation [x] Completed spiritual assessment [] Other: Impact on Illness or Injury [] Angry [] Fearful [] Anxious [] Often cries [] Exhaustion [] Unable to work [] Unable to attend mormonism [] Unable to walk/stand [] Unable to read [] Unable to drive [] Unable to eat/drink [] Unable to sleep [] Unable to be with family [] Patient intubated [] Other: Summary Time spent with patient 5 min
[2023-01-19 11:15] LABS: Glucose Point of Care 273 mg/dL (70-110)
[2023-01-19] MEDS: vancomycin 1,500 MG/300 ML PIGGYBACK 200 MG IV (15:23)
--- NOTE | 2023-01-19 15:46 | PM.PN ---
Subjective Subjective: Patient was seen and examined this morning shortness of breath is improved, has continued to remain afebrile.His other vitals and labs have been reviewed. Medications: Medication Review Details: Generic Name Dose Route Start Last Admin Trade Name Chacho PRN Reason Stop Dose Admin Albuterol/Ipratrop ium 3 ml 01/18/23 08:00 01/19/23 15:09 Ipratropium-Albu terol 3 Ml Neb INHALATION 3 ml QID.RESPIRATORY S CH Administration Amiodarone HCl 200 mg 01/18/23 09:00 01/19/23 08:46 Amiodarone 200 M g Tablet PO 200 mg BID TEO Administration Amlodipine Besylat e 10 mg 01/18/23 09:00 01/19/23 08:46 Amlodipine 10 Mg Tablet PO 10 mg DAILY TEO Administration Atorvastatin Calci um 20 mg 01/18/23 09:00 01/19/23 08:46 Atorvastatin 40 Mg Tablet PO 20 mg DAILY TEO Administration Budesonide 0.5 mg 01/18/23 08:00 01/19/23 07:29 Budesonide 0.5 M g/2 Ml Neb INHALATION 0.5 mg BID.RESPIRATORY S CH Administration Enoxaparin Sodium 40 mg 01/18/23 03:31 01/19/23 05:13 Enoxaparin 40 Mg /0.4 Ml Syringe SUBCUT 40 mg Q24H TEO Administration Gabapentin 100 mg 01/18/23 09:00 01/19/23 08:46 Gabapentin 100 M g Capsule PO 100 mg DAILY TEO Administration Hydralazine HCl 75 mg 01/18/23 04:00 01/19/23 12:37 Hydralazine 50 M g Tablet PO Not Given Q8H TEO Cefepime HCl 1,000 mg/ Sodium 50 mls @ 100 mls/ hr 01/18/23 14:00 01/19/23 02:32 Chloride IV Infused Q12H TEO Infusion Protocol Vancomycin/PEG/NAD A/Lysine/Water 1,500 mg in 300 m ls @ 200 mls/hr 01/18/23 18:00 01/19/23 15:23 Vancocin IV 200 mls/hr Q18H TEO Administration Insulin Human Lisp ro 0 unit 01/18/23 08:00 01/19/23 12:37 Insulin Lispro 1 00 Unit/1 Ml SUBCUT 8 unit TIDWM TEO Administration Protocol Isosorbide Mononit rate 120 mg 01/18/23 09:00 01/19/23 08:46 Isosorbide [place] itrate Er 60 Mg Ta blet PO 120 mg DAILY TEO Administration Pantoprazole Sodiu m 40 mg 01/18/23 09:00 01/19/23 08:[address] 40 Mg Tablet PO 40 mg DAILY TEO Administration Rivaroxaban 20 mg 01/18/23 09:00 01/19/23 08:46 Rivaroxaban 10 M g Tablet PO 20 mg DAILY TEO Administration Tamsulosin HCl 0.4 mg 01/18/23 09:00 01/19/23 08:46 Tamsulosin 0.4 M g Capsule PO 0.4 mg DAILY TEO Administration Vitals/I&O/Wt Last Vital Signs Temp 98.2 F 01/19/23 15:35 Pulse 62 01/19/23 15:35 Resp 15 01/19/23 15:35 BP 111/59 01/19/23 15:35 Pulse Ox 96 01/19/23 15:35 O2 Del Method Room Air 01/19/23 15:35 O2 Flow Rate 3 01/19/23 15:10 01/19/23 01/19/23 01/19/23 06:59 14:59 22:59 Intake Total 50 / 2480 720 / 720 Output Total 1200 / 1600 Balance -1150 / 880 720 / 720 Weight last 48 hrs Weight 101.605 kg Physical Exam Const: COMMON NORMALS: patient oriented x3 HENMT: COMMON NORMALS: normocephalic and atraumatic HEAD & SCALP: normocephalic and atraumatic Resp: COMMON NORMALS: clear to auscultation bilaterally AUSCULTATION: clear to auscultation bilaterally OTHER: Minimal bilateral basal crackles present in both the lungs [place] Cardio: COMMON NORMALS: regular rate, regular rhythm, S1 normal heart sound present, S2 normal heart sound present, No gallops present (Cardio), No murmurs present (Cardio), No rub (Cardio) and Peripheral pulses 2+ throughout RATE: regular rate RHYTHM: regular rhythm HEART SOUNDS: S1 normal heart sound present and S2 normal heart sound present PERIPHERAL PULSES: Peripheral pulses 2+ throughout GI: COMMON NORMALS: Soft to palpation and non-tender AUSCULTATION: Yes normoactive bowel sounds PALPATION: Yes Soft to palpation RECTAL EXAM: Yes deferred Extremity: COMMON NORMALS: no clubbing, cyanosis or edema and no pedal edema Neuro: COMMON NORMALS: patient oriented x3 Data 01/19/23 04:31 01/19/23 04:31 Micro: Microbiology 01/17/23 22:22 Blood Culture - Preliminary Blood NEGATIVE TO DATE 01/17/23 22:19 Blood Culture - Preliminary Blood NEGATIVE TO DATE A&P Assessment and plan (1) COPD (chronic obstructive pulmonary disease): (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: (3) Hypertension: Qualifiers: Hypertension type: essential hypertension Qualified Code(s): I10 - Essential (primary) hypertension (4) Hyperlipidemia: Qualifiers: Hyperlipidemia type: mixed hyperlipidemia Qualified Code(s): E78.2 - Mixed hyperlipidemia (5) Benign prostatic hyperplasia with incomplete bladder emptying: (6) Shortness of breath: (7) Pneumonia: Plan 82 year old male with a past medical history of diabetes, COPD, hypertension, hyperlipidemia, atrial fibrillation came in with chief complaint of shortness of breath,he was recently discharged from the hospital after being managed for pneumonia.Currently he is being managed for. Assessment: Pneumonia: CTA chest has shown: patchy bilateral ground-glass opacities, no pulmonary embolism. Blood cultures negative till date Sputum culture pending Limited 2D echo done during the hospital stay for shortness of breath: Normal LV size systolic function, no RWMA, LVEF 55%, normal RV size and systolic function.Trace MR, changed from prior echo done 2 weeks back Patient has been empirically started on broad-spectrum antibiotics vancomycin and cefepime. History of COPD: Usually uses 3 L oxygen at home: Continue DuoNebs Budesonide inhaler Incentive spirometer History of diabetes: SSI, monitor fingerstick glucose diabetic diet History of atrial fibrillation: Continue p.o. amiodarone On Xarelto for anticoagulation CODE STATUS:AND Attestations Medical Necessity Statement*: Needs to be in hospital for IV antibiotics. Coding Level of Care Code 29087 Diagnoses COPD (chronic obstructive pulmonary disease) J44.9 Type 2 DM with CKD and hypertension E11.22; I12.9 Hypertension I10 Hypertension type: essential hypertension Hyperlipidemia E78.2 Hyperlipidemia type: mixed hyperlipidemia Benign prostatic hyperplasia with incomplete bladder emptying N40.1; R39.14 Shortness of breath R06.02 Pneumonia J18.9
[2023-01-19 17:20] LABS: Glucose Point of Care 197 mg/dL (70-110)
[2023-01-19 21:32] LABS: Glucose Point of Care 243 mg/dL (70-110)
[2023-01-20] VITALS (10 sets, daily range): BP systolic 124–142; BP diastolic 64–70; PULSE 63–88; RESP 16–20; TEMP 36.3–37.2; O2SAT 96–99
[2023-01-20] MEDS: acetaminophen 325 mg Tablet 650 MG PO (01:07)
[2023-01-20] MEDS: enoxaparin 40 mg/0.4 mL Syringe SUBCUT (04:05)
[2023-01-20] MEDS: hyDRALAzine 50 mg Tablet 75 MG PO ×2 (04:05→11:54)
[2023-01-20 05:28] LABS: Basophils # 0.1 10^3/uL (0.0-0.1); Eosinophils # 0.7 10^3/uL (0.0-0.8); Eosinophils % 8.2 %; Hematocrit 32.5 % (42.0-52.0); Hemoglobin 10.3 g/dL (11.7-16.6); Lymphocytes # 2.3 10^3/uL (0.8-4.8); Lymphocytes % 28.8 %; Mean Corpuscular HGB Conc 31.7 g/dL (30.0-36.0); Mean Corpuscular Hemoglobin 27.7 pg (28.0-34.0); Mean Corpuscular Volume 87.4 fl (80-94); Mean Platelet Volume 9.5 fL (7.4-10.4); Monocytes # 0.7 10^3/uL (0.2-0.9); Monocytes % 9.3 %; Neutrophils # 4.13 10^3/uL (1.8-7.7); Neutrophils % 52.4 %; Nucleated Red Blood Cells % 0 %; Platelet Count 230 10^3/cmm (130-400); Red Blood Count 3.72 10^6/uL (4.1-5.3); Red Cell Distribution Width 15.5 % (12.1-15.1); White Blood Count 7.9 10^3/uL (4.0-10.0)
[2023-01-20 05:50] LABS: Vancomycin Trough 12.8 ug/mL (10-15)
[2023-01-20 05:52] LABS: Alanine Aminotransferase 14 U/L (0-41); Albumin Level 3.5 g/dL (3.5-5.2); Alkaline Phosphatase 64 U/L (40-130); Anion Gap 13.2 (5-19); Aspartate Amino Transferase 21 U/L (0-40); Blood Urea Nitrogen 17 mg/dL (8-23); Calcium 7.9 mg/dL (8.5-10.5); Carbon Dioxide 25 mmol/L (22-29); Chloride 101 mmol/L (98-107); Globulin 2.9 g/dL (1.3-4.6); Glucose 168 mg/dL (65-115); Osmolality Calculated 285 mOsm/kg (285-295); Phosphorus 2.8 mg/dL (2.5-4.5); Potassium 4.2 mmol/L (3.5-5.1); Sodium 135 mmol/L (136-145); Total Bilirubin 0.4 mg/dL (0.15-1.2); Total Protein 6.4 g/dL (6.6-8.7)
[2023-01-20 06:23] LABS: Glucose Point of Care 161 mg/dL (70-110)
[2023-01-20] MEDS: vancomycin 1,500 MG/300 ML PIGGYBACK 200 MG IV (06:37)
[2023-01-20] MEDS: budesonide 0.5 mg/2 mL Neb INHALATION (07:58)
[2023-01-20] MEDS: ipratropium-albuterol 3 mL Neb INHALATION ×2 (07:59→11:44)
[2023-01-20] MEDS: cefepime 1,000 MG in sodium chloride 0.9% (plus) 50 ML 100 MG IV (08:44)
[2023-01-20] MEDS: atorvastatin 40 mg Tablet 20 MG PO (08:45)
[2023-01-20] MEDS: tamsulosin 0.4 mg Capsule PO (08:45)
[2023-01-20] MEDS: isosorbide mononitrate ER 60 mg Tablet 120 MG PO (08:45)
[2023-01-20] MEDS: amiodarone 200 mg Tablet PO (08:45)
[2023-01-20] MEDS: rivaroxaban 10 mg Tablet 20 MG PO (08:46)
[2023-01-20] MEDS: amlodipine 10 mg Tablet PO (08:46)
[2023-01-20] MEDS: gabapentin 100 mg Capsule PO (08:46)
[2023-01-20] MEDS: pantoprazole DR 40 mg Tablet PO (08:46)
[2023-01-20] MEDS: insulin lispro 100 unit/1 mL SUBCUT ×2 (08:47→13:22)
[2023-01-20 12:06] LABS: Glucose Point of Care 300 mg/dL (70-110)
--- NOTE | 2023-01-20 18:19 | P.DS_ITS ---
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: Status: Acute (3) Hypertension: Status: Acute Qualifiers: Hypertension type: essential hypertension Qualified Code(s): I10 - Essential (primary) hypertension (4) Hyperlipidemia: Status: Acute Qualifiers: Hyperlipidemia type: mixed hyperlipidemia Qualified Code(s): E78.2 - Mixed hyperlipidemia (5) Benign prostatic hyperplasia with incomplete bladder emptying: Status: Acute (6) Shortness of breath: Status: Acute (7) Pneumonia: Status: Acute Reason for Visit Reason for Visit: SOB Hospital Course Hospital Course 82 year old male with a past medical history of diabetes, COPD, hypertension, hyperlipidemia, atrial fibrillation came in with chief complaint of shortness of breath,he was recently discharged from the hospital after being managed for pneumonia. Patient was admitted for the management of pneumonia CTA chest has shown:?patchy bilateral ground-glass opacities, no pulmonary embolism.Blood cultures : negative. Sputum culture was not obtained, induced sputum culture was not attempted, as the patient was clinically doing well. Limited 2D echo done during the hospital stay for shortness of breath: Normal LV size systolic function, no RWMA, LVEF 55%, normal RV size and systolic function.Trace MR, changed from prior echo done 2 weeks back Patient has been empirically kept on broad-spectrum antibiotics vancomycin and cefepime during hospital stay, to which he responded well, at the time of discharge, shortness of breath had markedly improved, he was saturating well on 3 L oxygen Through nasal cannula which is his home oxygen, at the time of discharge patient was afebrile hemodynamically stable He was discharged home on, p.o. Augmentin for another 7 days to complete the antibiotic course for pneumonia. Overall patient responded well to above medical management and was discharged home in stable condition.He will continue to follow with PCP as outpatient. Physical Exam Const: COMMON NORMALS: patient oriented x3 HENMT: COMMON NORMALS: normocephalic and atraumatic HEAD & SCALP: normocephalic and atraumatic Resp: COMMON NORMALS: clear to auscultation bilaterally AUSCULTATION: clear to auscultation bilaterally Cardio: COMMON NORMALS: regular rate, regular rhythm, S1 normal heart sound present, S2 normal heart sound present, No gallops present (Cardio), No murmurs present (Cardio), No rub (Cardio) and Peripheral pulses 2+ throughout RATE: regular rate RHYTHM: regular rhythm HEART SOUNDS: S1 normal heart sound present and S2 normal heart sound present PERIPHERAL PULSES: Peripheral pulses 2+ throughout GI: COMMON NORMALS: Soft to palpation and non-tender AUSCULTATION: Yes normoactive bowel sounds PALPATION: Yes Soft to palpation RECTAL EXAM: Yes deferred Extremity: COMMON NORMALS: no clubbing, cyanosis or edema and no pedal edema Neuro: COMMON NORMALS: patient oriented x3 Discharge Data Studies Completed and Pending Completed Studies During Hospitalization Category Date Time Status CT angio chest PE protcl [id number] Stat Cat Scan 01/18/23 01:59 Completed XR chest 1V [id number] Stat Exams 01/17/23 21:40 Completed CV. echo limited [id number] Routine Ultrasound 01/18/23 02:05 Completed Pending at discharge Category Date Time Status Blood Culture Stat Lab 01/17/23 22:22 Results Radiology Impressions Chest X-Ray 01/17/23 21:40 IMPRESSION: 1. Mild cardiomegaly. 2. Emphysematous changes. 3. Bibasilar atelectasis versus minimal infiltrate. Chest CTA 01/18/23 01:59 IMPRESSION: 1. Patchy bilateral ground-glass opacities which may be seen with infectious infiltrates in the appropriate clinical context. 2. Prominent hilar, subcarinal mediastinal lymph nodes. Laboratory Results WBC 7.9 10^3/uL (4.0-10.0) 01/20/23 05:06 RBC 3.72 10^6/uL (4.1-5.3) L 01/20/23 05:06 Hgb 10.3 g/dL (11.7-16.6) L 01/20/23 05:06 Hct 32.5 % (42.0-52.0) L 01/20/23 05:06 MCV 87.4 fl (80-94) 01/20/23 05:06 MCH 27.7 pg (28.0-34.0) L 01/20/23 05:06 MCHC 31.7 g/dL (30.0-36.0) 01/20/23 05:06 RDW 15.5 % (12.1-15.1) H 01/20/23 05:06 Plt Count 230 10^3/cmm (130-400) 01/20/23 05:06 MPV 9.5 fL (7.4-10.4) 01/20/23 05:06 Neut % (Auto) 52.4 % 01/20/23 05:06 Lymph % (Auto) 28.8 % 01/20/23 05:06 Power % (Auto) 9.3 % 01/20/23 05:06 Eos % (Auto) 8.2 % 01/20/23 05:06 Baso % (Auto) 1.0 % 01/20/23 05:06 Neut # (Auto) 4.13 10^3/uL (1.8-7.7) 01/20/23 05:06 Lymph # (Auto) 2.3 10^3/uL (0.8-4.8) 01/20/23 05:06 Power # (Auto) 0.7 10^3/uL (0.2-0.9) 01/20/23 05:06 Eos # (Auto) 0.7 10^3/uL (0.0-0.8) 01/20/23 05:06 Baso # (Auto) 0.1 10^3/uL (0.0-0.1) 01/20/23 05:06 Nucleated RBC % (auto) 0 % 01/20/23 05:06 Nucleated RBCs # 0.0 /100WBC 01/20/23 05:06 ESR 77 mm/hr (0-10) H 01/17/23 21:47 Sodium 135 mmol/L (136-145) L 01/20/23 05:06 Potassium 4.2 mmol/L (3.5-5.1) 01/20/23 05:06 Chloride 101 mmol/L (98-107) 01/20/23 05:06 Carbon Dioxide 25 mmol/L (22-29) 01/20/23 05:06 Anion Gap 13.2 (5-19) 01/20/23 05:06 BUN 17 mg/dL (8-23) 01/20/23 05:06 Creatinine 1.1 mg/dL (0.7-1.2) 01/20/23 05:06 GFR Calculation Not Reportable 01/20/23 05:06 Glucose 168 mg/dL (65-115) H 01/20/23 05:06 POC Glucose 300 mg/dL (70-110) H 01/20/23 11:45 Calculated Osmolality 285 mOsm/kg (285-295) 01/20/23 05:06 Lactic Acid 1.1 mmol/L (0.5-2.2) 01/18/23 03:00 Calcium 7.9 mg/dL (8.5-10.5) L 01/20/23 05:06 Phosphorus 2.8 mg/dL (2.5-4.5) 01/20/23 05:06 Magnesium 2.0 mg/dL (1.7-2.3) 01/20/23 05:06 Total Bilirubin 0.4 mg/dL (0.15-1.2) 01/20/23 05:06 AST 21 U/L (0-40) 01/20/23 05:06 ALT 14 U/L (0-41) 01/20/23 05:06 Alkaline Phosphatase 64 U/L (40-130) 01/20/23 05:06 Troponin T Gen 5 ng/L 32 ng/L (0-15) H 01/17/23 21:47 Troponin T 120 Minute 35.67 ng/L (0-15) H 01/17/23 23:53 Delta Troponin T 3.67 ABS# (0-10) 01/17/23 23:53 C-Reactive Protein 5.9 mg/L (0.0-4.9) H 01/18/23 03:00 NT-Pro-B Natriuret Pep 330 pg/mL (0-450) 01/17/23 21:47 Total Protein 6.4 g/dL (6.6-8.7) L 01/20/23 05:06 Albumin 3.5 g/dL (3.5-5.2) 01/20/23 05:06 Globulin 2.9 g/dL (1.3-4.6) 01/20/23 05:06 Triglycerides 66 mg/dL (0-150) 01/18/23 00:00 Cholesterol 165 mg/dL (0-200) 01/18/23 00:00 LDL Cholesterol, Calc 106 mg/dL (50-129) 01/18/23 00:00 HDL Cholesterol 46 mg/dL (60-100) L 01/18/23 00:00 LDL/HDL Ratio 2.30 RATIO (0.00-3.22) 01/18/23 00:00 Cholesterol/HDL Ratio 3.59 mg/dL (1.0-5.00) 01/18/23 00:00 Procalcitonin 0.07 ng/mL (0-0.5) 01/18/23 03:00 TSH 4.75 uIU/mL (0.27-4.20) H 01/18/23 00:00 Urine Color Colorless (Yellow) 01/17/23 22:04 Urine Appearance Clear (CLEAR) 01/17/23 22:04 Urine pH 7 (5-7) 01/17/23 22:04 Ur Specific [place] 1.015 (1.005-1.030) 01/17/23 22:04 Urine Protein Neg (Negative) 01/17/23 22:04 Urine Glucose (UA) 4+ (Normal) H 01/17/23 22:04 Urine Ketones Negative (Negative) 01/17/23 22:04 Urine Blood Neg (Negative) 01/17/23 22:04 Urine Nitrate Negative (Negative) 01/17/23 22:04 Urine Bilirubin Neg (Negative) 01/17/23 22:04 Urine Urobilinogen Norm mg/dL (Negative) 01/17/23 22:04 Ur Leukocyte Esterase Negative (Negative) 01/17/23 22:04 Vancomycin Trough 12.8 ug/mL (10-15) 01/20/23 05:06 Vitals Last Vital Signs Temp 97.3 F L 01/20/23 15:08 Pulse 80 01/20/23 15:08 Resp 18 01/20/23 15:08 BP 133/68 01/20/23 15:08 Pulse Ox 97 01/20/23 15:08 O2 Del Method Nasal Cannula 01/20/23 11:44 O2 Flow Rate 3 01/20/23 11:44 Discharge Plan Discharge Patient Disposition: Home Health Service Condition: Stable Prescriptions: New Augmentin 500-125 mg tablet 1 tab PO BID 7 Days Qty: 14 0RF Continued (DME) lancets 18 gauge misc See Rx Instructions .Route Qty: 100 1RF Rx Instructions: As directed albuterol sulfate 0.63 mg/3 mL solution for nebulization 0.63 mg inhalation QID PRN (Reason: shortness of breath or wheezing) Qty: 90 1RF (DME) nebulizer kit See Rx Instructions .Route .MEDSUPPLY Qty: 1 0RF Rx Instructions: As directed hydralazine 50 mg tablet 75 mg PO Q8H Qty: 405 3RF Rx Instructions: @05:00,13:00,21:00 (DME) True Metrix Glucose Test Strip Strip See Rx Instructions .Route Qty: 100 0RF Rx Instructions: As directed (DME) nebulizer See Rx Instructions .Route .MEDSUPPLY Qty: 1 0RF Rx Instructions: As directed Xarelto 20 mg Tablet 20 mg PO DAILY@07 pravastatin 40 mg tablet 40 mg PO DAILY@07 amiodarone 200 mg tablet 200 mg PO BID@07,19 isosorbide mononitrate 120 mg tablet extended release 24 hr 120 mg PO DAILY@19 tamsulosin 0.4 mg capsule 0.4 mg PO BEDTIME@22 amlodipine 10 mg tablet 10 mg PO DAILY@07 pantoprazole 40 mg tablet,delayed release (DR/EC) 40 mg PO DAILY@07 glimepiride 4 mg tablet 8 mg PO DAILY@07 Nitrostat 0.4 mg Tablet, Sublingual 0.4 mg SUBLINGUAL Q5M PRN (Reason: Chest Pain) Rx Instructions: do not exceed 3 doses per episode furosemide 20 mg tablet 20 mg PO DAILY@07 gabapentin 100 mg capsule 100 mg PO BEDTIME@2130 albuterol sulfate 90 mcg/actuation HFA aerosol inhaler 2 puff INHALATION Q4H PRN (Reason: Shortness Of Breath) metformin 750 mg tablet extended release 24 hr 750 mg PO BEDTIME@19 Discharge Orders: Discharge Order (Routine); Ordered 01/20/23 Ordered By: Manpreet Negrete Referrals: [facility] ([facility]) [Outside] Lucy Ny FNP [Primary Care Provider] - 01/22/23 9:00 am Patient Instructions: COPD, Amoxicillin/Clavulanate Potassium (By mouth), Pneumonia (ED), COPD Stoplight, Opioid Safety, Pneumonia Stoplight Discharge Attestations Time Spent in Discharge Care*: less than 30 min Quality Metrics Clinical Quality Measures [ No reported AMI, CVA or VTE this stay] Coding Level of Care Code Acute Code for Chg Fwd Diagnoses COPD (chronic obstructive pulmonary disease) J44.9 Type 2 DM with CKD and hypertension E11.22; I12.9 Hypertension I10 Hypertension type: essential hypertension Hyperlipidemia E78.2 Hyperlipidemia type: mixed hyperlipidemia Benign prostatic hyperplasia with incomplete bladder emptying N40.1; R39.14 Shortness of breath R06.02 Pneumonia J18.9
== END 2023-01-20 15:08 | disposition home or self-care (01) ==
LOC: ER 21:51 → MEDSURG 01-18 02:20 → CSU 01-21 12:57
PROVIDERS: Admitting Provider Family Medicine; Emergency Provider Physician Assistant; PCP Nurse Practitioner Family; Visit Provider Internal Medicine
DX: J18.9 Pneumonia, unspecified organism (principal); J44.9 Chronic obstructive pulmonary disease, unspecified; R53.1 Weakness; I13.0 Hypertensive heart and chronic kidney disease with heart failure and stage 1 through stage 4 chronic kidney disease, or unspecified chronic kidney disease; E11.22 Type 2 diabetes mellitus with diabetic chronic kidney disease; N18.9 Chronic kidney disease, unspecified; I50.9 Heart failure, unspecified; I48.91 Unspecified atrial fibrillation; E78.2 Mixed hyperlipidemia; N40.1 Benign prostatic hyperplasia with lower urinary tract symptoms; R39.14 Feeling of incomplete bladder emptying; I44.0 Atrioventricular block, first degree; Z79.84 Long term (current) use of oral hypoglycemic drugs; Z79.01 Long term (current) use of anticoagulants; Z79.899 Other long term (current) drug therapy; Z95.0 Presence of cardiac pacemaker
CPT/HCPCS: 36415; 36416; 71045; 71275; 80053; 80061; 80202; 81003; 82962; 83605; 83735; 83880; 84100; 84145; 84443; 84484; 85025; 85651; 86140; 87040; 87150; 87205; 93005; 93308; 94640; 94664; 96361; 96365; 96372; 97110; 97116; 97161; 97165; 99285; G0378; J0692; J1650; J1815; J2543; J3370; J7030; J7040; J7626; Q9967

== ENCOUNTER 2023-01-25 21:19 | Emergency (ER) | payer MEDICARE, MEDICAID, SELFPAY ==
[2023-01-25 21:20] VITALS: BP 146/72; PULSE 76; RESP 16; TEMP 36.8; O2SAT 97
--- NOTE | 2023-01-25 21:20 | ECG_ITS ---
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 Measurements Intervals [place] Rate: 76 P: 159 [place]: 173 QRS: -68 QRSD: 146 T: 84 QT: 429 QTc: 485 Interpretive Statements ELECTRONIC ATRIAL PACEMAKER ELECTRONIC VENTRICULAR PACEMAKER ABNORMAL RHYTHM ECG Compared to ECG 01/17/2023 21:47:18 Sinus rhythm no longer present First degree AV block no longer present Electronically Signed On 01-26-2023 7:07:03 CDT by Lisandro Mcgregor M.D. [id number]
--- NOTE | 2023-01-25 21:20 | XRR_ITS ---
PROCEDURE INFORMATION: Exam: XR Chest Exam date and time: 01/25/2023 9:29 PM Age: 82 years old Clinical indication: Shortness of breath; Prior surgery; Surgery date: 6+ months; Surgery type: Pacer; Additional info: Cp TECHNIQUE: Imaging protocol: Radiologic exam of the chest. Views: 1 view. COMPARISON: CR (CHEST, ) 01/17/2023 9:48 PM FINDINGS: Tubes, catheters and devices: Stable left-sided chest pacemaker. Lungs: Interstitial changes in the pbcjc-fexyfli-sctr-left lung base are similar to the comparison CT scan. Pleural spaces: Unremarkable. No pleural effusion. No pneumothorax. Heart/Mediastinum: Stable heart size. Bones/joints: Stable bones. XR/XR chest 1V portable [id number] IMPRESSION: Interstitial changes in the bpiif-kbhfbtw-jobm-left lung base are similar to the comparison CT scan. These changes may be chronic given the comparison CT appearance. Correlate for active infection.
[2023-01-25 21:27] VITALS: O2SAT 98
--- NOTE | 2023-01-25 21:35 | ED_ITS ---
HPI - Chest Pain General: Chief Complaint: Chest Pain Stated Complaint: CP, SOB Time Seen by Provider: 01/25/23 21:21 Source: patient and EMS Mode of arrival: EMS Limitations: no limitations History of Present Illness: 82-year-old male states that over the last 3 to 4 days has been having increasing cough and shortness of breath he states he was recently diagnosed with pneumonia he states that he felt more short of breath today he is on 3 L oxygen at baseline he has had increasing cough denies any chest pain denies any fevers Associated symptoms: Reports dyspnea; Deny abdominal pain, fever(s), nausea or vomiting Review of Systems Const: Reports: chills and body aches; Denies: fever(s) Eyes: Denies: eye discomfort ENMT: Denies: throat pain or dental pain Card: Reports: chest pain Resp: Reports: dyspnea and productive cough GI: Denies: abdominal pain, nausea, vomiting or diarrhea : Denies: dysuria Musc: Denies: neck pain or back pain Skin/Breast: Denies: rash PFSH ED PFSH: Medical History Atrial fibrillation Benign prostatic hyperplasia with incomplete bladder emptying Chronic cervical radiculopathy Chronic low back pain Chronic lumbar radiculopathy COPD (chronic obstructive pulmonary disease) DDD (degenerative disc disease), lumbar Dizziness Encounter for long-term opiate analgesic use Encounter for long-term opiate analgesic use Facet joint disease Fibromyalgia Hx of diabetic foot ulcer Hyperlipidemia Hypertension Long-term use of high-risk medication continue to monitor use Pacemaker Pneumonia Restless legs syndrome Shortness of breath Type 2 DM with CKD and hypertension Uncontrolled type 2 DM with peripheral circulatory disorder Surgical History History of permanent cardiac pacemaker placement History of umbilical hernia repair S/P cardiac pacemaker procedure S/P laser cataract surgery 2 YEARS AGO BILAT Family History Father , 80-house fire No problems noted. Mother , 70 Cancer Brother Cancer Lung disease Chronic kidney disease (CKD) Sister Cancer CAD (coronary artery disease) Diabetes Daughter Diabetes Family/Other Diabetes Denies family history of Clotting disorder Dementia Suicide Anesthesia complication Bleeding disorder Stroke Social History Smoking and tobacco status: never smoked Second hand smoke exposure: No Alcohol intake: never Substance/Drug Use: never Adopted: No Marital status: / Current occupational status: retired Physical Exam Const: COMMON NORMALS: patient oriented x3 and healthy appearing GENERAL APPEARANCE: ill appearing HENMT: COMMON NORMALS: normocephalic and atraumatic HEAD & SCALP: n ormocephalic and atraumatic Eye: COMMON NORMALS: conjunctivae normal CONJUNCTIVA: Yes conjunctivae normal Neck/C-Spine: COMMON NORMALS: full ROM and supple Chest: COMMONS NORMALS: normal inspection of the chest and normal palpation of entire chest wall Resp: COMMON NORMALS: No retractions and No use of accessory muscles EFFORT & INSPECTION: Yes tachypneic AUSCULTATION: rales Cardio: COMMON NORMALS: regular rate, regular rhythm and No murmurs present (Cardio) RATE: regular rate RHYTHM: regular rhythm GI: COMMON NORMALS: Normal to inspection, nondistended, normoactive bowel sounds present, Soft to palpation, non-tender and no masses PALPATION: Yes Soft to palpation Extremity: COMMON NORMALS: normal to inspection and full ROM Neuro: COMMON NORMALS: patient oriented x3, moves all extremities and no focal motor deficits Psych: COMMON NORMALS: mental status grossly normal, Normal thought process present and cooperative THOUGHT PROCESS: Normal thought process present Skin: COMMON NORMALS: no rashes or lesions noted and no wounds GENERAL SKIN EXAM: no rashes or lesions noted Course Vital Signs: Vital signs: Vital Signs Temperature 98.2 F 01/25/23 21:20 Pulse Rate 73 01/25/23 22:21 Respiratory Rate 22 H 01/25/23 22:21 Blood Pressure 139/78 01/25/23 22:21 Pulse Oximetry 94 01/25/23 22:21 Oxygen Delivery Me thod Nasal Cannula 01/25/23 22:20 Oxygen Flow Rate 3 01/25/23 22:20 MDM - Chest Pain Medical Decision Making Patient presents here with shortness of breath patient's son and they arrived in and informed that he does not want any treatment here he is refusing to sign any release of medical care and wants him to go to [place] patient and his son decided to sign out AGAINST MEDICAL ADVICE to drive to [place] at this time. They understand the risks with his condition patient does have medical decision making and he agreed to this as well they signed out AMA. Lab Data 01/25/23 20:35 01/25/23 20:35 Laboratory Results WBC 9.1 10^3/uL (4.0-10.0) 01/25/23 20:35 RBC 4.20 10^6/uL (4.1-5.3) 01/25/23 20:35 Hgb 12.0 g/dL (11.7-16.6) 01/25/23 20:35 Hct 36.6 % (42.0-52.0) L 01/25/23 20:35 MCV 87.1 fl (80-94) 01/25/23 20:35 MCH 28.6 pg (28.0-34.0) 01/25/23 20:35 MCHC 32.8 g/dL (30.0-36.0) 01/25/23 20:35 RDW 16.0 % (12.1-15.1) H 01/25/23 20:35 Plt Count 245 10^3/cmm (130-400) 01/25/23 20:35 MPV 10.2 fL (7.4-10.4) 01/25/23 20:35 Neut % (Auto) 47.4 % 01/25/23 20:35 Lymph % (Auto) 31.9 % 01/25/23 20:35 Fannin % (Auto) 9.8 % 01/25/23 20:35 Eos % (Auto) 9.5 % 01/25/23 20:35 Baso % (Auto) 1.0 % 01/25/23 20:35 Lymph # (Auto) Not Reportable 01/25/23 20:35 Fannin # (Auto) Not Reportable 01/25/23 20:35 PT 15.50 SECONDS (12.1-14.9) H 01/25/23 21:42 INR 1.19 (0.8-1.2) 01/25/23 21:42 Potassium 4.3 mmol/L (3.5-5.1) 01/25/23 20:35 Carbon Dioxide 25 mmol/L (22-29) 01/25/23 20:35 Anion Gap 17.3 (5-19) 01/25/23 20:35 Creatinine 1.2 mg/dL (0.7-1.2) 01/25/23 20:35 GFR Calculation Not Reportable 01/25/23 20:35 Calculated Osmolality 288 mOsm/kg (285-295) 01/25/23 20:35 Calcium 9.3 mg/dL (8.5-10.5) 01/25/23 20:35 Total Bilirubin 0.3 mg/dL (0.15-1.2) 01/25/23 20:35 AST 19 U/L (0-40) 01/25/23 20:35 ALT 18 U/L (0-41) 01/25/23 20:35 Alkaline Phosphatase 87 U/L (40-130) 01/25/23 20:35 Troponin T Baseline 30 ng/L (0-15) H 01/25/23 20:35 NT-Pro-B Natriuret Pep 229 pg/mL (0-450) 01/25/23 20:35 Total Protein 7.5 g/dL (6.6-8.7) 01/25/23 20:35 Albumin 4.1 g/dL (3.5-5.2) 01/25/23 20:35 Globulin 3.4 g/dL (1.3-4.6) 01/25/23 20:35 EKG Data EKG 1: I personally reviewed and interpreted this EKG as follows: EKG interpretation date: 01/25/23 EKG interpretation time: 21:26 Interpretation: electronic paced rhythm hr [address] or t wave abnormalities qrs 146 qtc 460 Discharge Plan Discharge Patient Disposition: Left Against Medical Advice Clinical Impression: Breath shortness Condition: Stable Prescriptions: No Action (DME) lancets 18 gauge misc See Rx Instructions .Route Qty: 100 1RF Rx Instructions: As directed albuterol sulfate 0.63 mg/3 mL solution for nebulization 0.63 mg inhalation QID PRN (Reason: shortness of breath or wheezing) Qty: 90 1RF (DME) nebulizer kit See Rx Instructions .Route .MEDSUPPLY Qty: 1 0RF Rx Instructions: As directed pravastatin 40 mg tablet 20 mg PO DAILY@07 hydralazine 50 mg tablet 75 mg PO Q8H Qty: 405 3RF Rx Instructions: @05:00,13:00,21:00 (DME) nebulizer See Rx Instructions .Route .MEDSUPPLY Qty: 1 0RF Rx Instructions: As directed TRUE METRIX GLUCOSE GABE See Rx Instructions .ROUTE .COMPLEX Qty: 100 0RF Dose Instruction: USE ONE STRIP TO CHECK GLUCOSE ONCE DAILY Rx Instructions: USE ONE STRIP TO CHECK GLUCOSE ONCE DAILY Xarelto 20 mg Tablet 20 mg PO DAILY@07 amiodarone 200 mg tablet 200 mg PO BID@07,19 isosorbide mononitrate 120 mg tablet extended release 24 hr 120 mg PO DAILY@19 tamsulosin 0.4 mg capsule 0.4 mg PO BEDTIME@22 amlodipine 10 mg tablet 10 mg PO DAILY@07 pantoprazole 40 mg tablet,delayed release (DR/EC) 40 mg PO DAILY@07 glimepiride 4 mg tablet 8 mg PO DAILY@07 Nitrostat 0.4 mg Tablet, Sublingual 0.4 mg SUBLINGUAL Q5M PRN (Reason: Chest Pain) Rx Instructions: do not exceed 3 doses per episode furosemide 20 mg tablet 20 mg PO DAILY@07 gabapentin 100 mg capsule 100 mg PO BEDTIME@2130 albuterol sulfate 90 mcg/actuation HFA aerosol inhaler 2 puff INHALATION Q4H PRN (Reason: Shortness Of Breath) metformin 750 mg tablet extended release 24 hr 750 mg PO BEDTIME@19 Augmentin 500-125 mg tablet 1 tab PO BID 7 Days Qty: 14 0RF Referrals: Lucy Ny FNP [Primary Care Provider] - Coding Level of Care Code ED Gas Line Installer for Guerrero Menchaca
[2023-01-25 21:42] VITALS: BP 147/67; PULSE 72; RESP 18; O2SAT 94
[2023-01-25 22:04] LABS: INR 1.19 (0.8-1.2)
[2023-01-25 22:13] LABS: White Blood Count 9.1 10^3/uL (4.0-10.0)
[2023-01-25 22:14] LABS: Hematocrit 36.6 % (42.0-52.0); Lymphocytes % 31.9 %; Mean Corpuscular HGB Conc 32.8 g/dL (30.0-36.0); Mean Corpuscular Hemoglobin 28.6 pg (28.0-34.0); Mean Corpuscular Volume 87.1 fl (80-94); Mean Platelet Volume 10.2 fL (7.4-10.4); Neutrophils % 47.4 %; Platelet Count 245 10^3/cmm (130-400)
[2023-01-25 22:15] LABS: Eosinophils % 9.5 %; Monocytes % 9.8 %; Troponin(5th) Baseline 30 ng/L (0-15)
[2023-01-25 22:20] VITALS: BP 139/78; PULSE 85; RESP 27; O2SAT 73
[2023-01-25 22:21] VITALS: BP 139/78; PULSE 73; RESP 22; O2SAT 94
[2023-01-25 22:25] LABS: Alanine Aminotransferase 18 U/L (0-41); Albumin Level 4.1 g/dL (3.5-5.2); Alkaline Phosphatase 87 U/L (40-130); Anion Gap 17.3 (5-19); Aspartate Amino Transferase 19 U/L (0-40); Blood Urea Nitrogen 25 mg/dL (8-23); Calcium 9.3 mg/dL (8.5-10.5); Carbon Dioxide 25 mmol/L (22-29); Chloride 96 mmol/L (98-107); Globulin 3.4 g/dL (1.3-4.6); Glucose 202 mg/dL (65-115); NT Pro B Type Natriuretic Pept 229 pg/mL (0-450); Osmolality Calculated 288 mOsm/kg (285-295); Potassium 4.3 mmol/L (3.5-5.1); Sodium 134 mmol/L (136-145); Total Bilirubin 0.3 mg/dL (0.15-1.2); Total Protein 7.5 g/dL (6.6-8.7)
[2023-01-25 22:53] LABS: Basophils # 0.1 10^3/uL (0.0-0.1); Eosinophils # 0.9 10^3/uL (0.0-0.8); Lymphocytes # 2.9 10^3/uL (0.8-4.8); Monocytes # 0.9 10^3/uL (0.2-0.9); Neutrophils # 4.28 10^3/uL (1.8-7.7); Nucleated Red Blood Cells % 0 %
--- NOTE | 2023-01-28 11:40 | DCPLANNER ---
clinical resource manager was triggered to call patient due to no primary care physician - patient sees Lucy Ny at [facility].
== END 2023-01-25 22:25 | disposition left against medical advice (07) ==
PROVIDERS: Emergency Provider Emergency Medicine; PCP Nurse Practitioner Family
DX: R06.02 Shortness of breath (principal); Z53.21 Procedure and treatment not carried out due to patient leaving prior to being seen by health care provider; Z79.84 Long term (current) use of oral hypoglycemic drugs; Z95.0 Presence of cardiac pacemaker; J44.9 Chronic obstructive pulmonary disease, unspecified; E78.5 Hyperlipidemia, unspecified; I12.9 Hypertensive chronic kidney disease with stage 1 through stage 4 chronic kidney disease, or unspecified chronic kidney disease; E11.22 Type 2 diabetes mellitus with diabetic chronic kidney disease; N18.9 Chronic kidney disease, unspecified
CPT/HCPCS: 36415; 71045; 80053; 83880; 84484; 85025; 85610; 93005; 99285

== ENCOUNTER 2024-10-10 10:43 | Outpatient (CLI) | payer MEDICARE, MEDICAID, SELFPAY ==
[2024-10-10 11:51] LABS: Blood Urea Nitrogen 21 mg/dL (8-23); Calcium 8.6 mg/dL (8.5-10.5); Carbon Dioxide 26 mmol/L (22-29); Chloride 96 mmol/L (98-107); Glucose 228 mg/dL (65-115); Osmolality Calculated 288 mOsm/kg (285-295); Sodium 134 mmol/L (136-145)
== END 2024-10-10 10:44 | disposition home or self-care (01) ==
LOC: LAB 10:47
PROVIDERS: PCP Nurse Practitioner Family; Visit Provider Nurse Practitioner Family
DX: I50.22 Chronic systolic (congestive) heart failure (principal)
CPT/HCPCS: 36415; 80048

== ENCOUNTER 2024-10-25 09:15 | Outpatient (CLI) | payer MEDICARE, MEDICAID, SELFPAY ==
--- NOTE | 2024-10-25 09:27 | XR_ITS ---
WS: [id number] Exam: XR chest 2V* [id number] Date/Time of Exam: 10/25/2024 9:32 AM Reason For Exam: COUGH Comparison 01/25/2023. There is diffuse interstitial infiltrate in the RIGHT lung suspicious for pneumonia. There are superi mposed chronic changes with honeycombing noted bilaterally. Mild cardiac enlargement unchanged. No pn eumothorax or pleural effusion. A permanent cardiac pacer superimposes the LEFT chest. Bony structure s are intact. The mediastinum is normal in contour. XR/XR chest 2V* [id number] IMPRESSION: 1. Diffuse interstitial infiltrate in the RIGHT lung suspicious for pneumonia. 2. Superimposed chronic changes noted bilaterally. Stable mild cardiomegaly
== END 2024-10-25 09:16 | disposition home or self-care (01) ==
LOC: RAD 09:22
PROVIDERS: PCP Nurse Practitioner Family; Visit Provider Nurse Practitioner Family
DX: R05.9 Cough, unspecified (principal); I50.22 Chronic systolic (congestive) heart failure; R06.02 Shortness of breath; I51.7 Cardiomegaly; Z95.818 Presence of other cardiac implants and grafts
CPT/HCPCS: 71046

== ENCOUNTER 2024-11-06 20:08 | Observation (INO) | payer MEDICARE, MEDICAID, SELFPAY ==
[2024-11-06 20:11] VITALS: BP 124/91; PULSE 85; RESP 28; TEMP 36.5; O2SAT 93; BMI 35.6
--- NOTE | 2024-11-06 20:14 | XRR_ITS ---
PROCEDURE INFORMATION: Exam: XR Chest Exam date and time: 11/06/2024 8:19 PM Age: 84 years old Clinical indication: Shortness of breath; Prior surgery; Surgery date: 6+ months; Surgery type: Pacer TECHNIQUE: Imaging protocol: Radiologic exam of the chest. Views: 1 view. COMPARISON: CR XR chest 2V* [id number] 10/25/2024 9:33 AM FINDINGS: Tubes, catheters and devices: Dual lead cardiac pacemaker device overlying the left chest wall. Lungs: Worsening airspace opacities greatest of the lung bases and interstitial markings. Cardiomegaly and some degree of central pulmonary vasculature congestive changes. Pleural spaces: Small bilateral pleural effusions. Heart/Mediastinum: See Lungs finding. Bones/joints: Unremarkable. XR/XR chest 1V portable [id number] IMPRESSION: As above.
--- NOTE | 2024-11-06 20:15 | ECG_ITS ---
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 Measurements Intervals [place] Rate: 84 P: 54 MT: 202 QRS: -87 QRSD: 153 T: 115 QT: 410 QTc: 486 Interpretive Statements atrial fibrillation with demand V pacing ELECTRONIC VENTRICULAR PACEMAKER ABNORMAL RHYTHM ECG Compared to ECG 01/25/2023 21:26:02 Atrial-paced complex(es) or rhythm no longer present Electronically Signed On 11-08-2024 17:19:59 SUBWAY OPERATOR by Lisandro Mcgregor M.D. [email or web address]
--- NOTE | 2024-11-06 20:26 | ED_ITS ---
HPI - SOB/Dyspnea 2 General: Chief Complaint: Shortness of Breath/Dyspnea Stated Complaint: resp distress Time Seen by Provider: 11/06/24 20:11 History of Present Illness: HPI Narrative: 84-year-old man with history of congesti ve heart failure who is on hospice for this diagnosis who presents emergency room with worsening swelling, shortness of breath. He says he is had about a 15 pound weight gain over the last couple weeks. He had talked with hospice and they told him to come to the emergency room to see if there is any available treatment. No fevers. No cough. No altered mental status. No focal motor deficits. Complains of abdominal swelling. Related Data Home Medications ?Medication ?Instructions ?Recorded ?Confirmed albuterol sulfate 90 mcg/actuation 2 puff inhalation Q 4H PRN 01/18/23 01/22/23 aerosol inhaler Shortness Of Breath amiodarone 200 mg tablet 200 mg PO BID@07,01/18/23 01/22/23 gabapentin 100 mg capsule 100 mg PO BEDTIME@2130 01/1801/22/23 glimepiride 4 mg tablet 8 mg PO DAILY@01/18/23 metformin 750 mg tablet,extended 750 mg PO BEDTIME@01/18/23 01/22/23 release 24 hr rivaroxaban 20 mg tablet (Xarelto) 20 mg PO DAILY@ 0 01/18/23 01/22/23 Previous Rx's ?Medication ?Instructions ?Recorded lancets 18 gauge #100 ea 04/06/22 albuterol sulfate 0.63 mg/3 mL 0.63 mg (3 mL) inhalati on QID PRN 01/07/23 solution for nebulization shortness of breath or wheez ing #90 mL nebulizer kit #1 ea 01/12/23 nebulizer #1 ea 01/14/23 blood sugar diagnostic (True #100 ea 01/28/23 Metrix Glucose Test Strip) tamsulosin 0.4 mg capsule See Rx Instructions .Route 0 03/31/23 .COMPLEX #90 caps hydralazine 50 mg tablet See Rx Instructions .Route 1 10/03/22 .COMPLEX #270 tabs amlodipine 10 mg tablet 10 mg PO DAILY@07 #90 tabs 0 10/05/23 furosemide 20 mg tablet See Rx Instructions .Route 0 11/09/23 .COMPLEX #30 tabs pravastatin 40 mg tablet See Rx Instructions .Route 0 02/16/24 .COMPLEX #90 tabs pantoprazole 40 mg tablet,delayed See Rx Instructions .Route 03/01/24 release .COMPLEX #90 tabs nitroglycerin 0.4 mg sublingual See Rx Instructions .R oute 05/02/24 tablet .COMPLEX #25 tabs isosorbide mononitrate 120 mg See Rx Instructions .Rou te 10/10/24 tablet,extended release 24 hr .COMPLEX #90 tabs Allergies Allergy/AdvReac Type Severity Reaction Status Date / Time methadone Allergy NA Verified 11/06/24 20:18 chlorthalidone AdvReac Severe nausea Verified 11/06/24 20:18 Review of Systems 2 Narrative: Constitutional symptoms: Negative except as documented in HPI. Skin symptoms: Negative except as documented in HPI. Eye symptoms: Negative except as documented in HPI. ENMT symptoms: Negative except as documented in HPI. Respiratory symptoms: Negative except as documented in HPI. Cardiovascular symptoms: Negative except as documented in HPI. Gastrointestinal symptoms: Negative except as documented in HPI. Genitourinary symptoms: Negative except as documented in HPI. Musculoskeletal symptoms: Negative except as documented in HPI. Neurologic symptoms: Negative except as documented in HPI. Psychiatric symptoms: Negative except as documented in HPI. Endocrine symptoms: Negative except as documented in HPI. PFSH ED 2 PFSH: Medical History Pneumonia Shortness of breath COPD (chronic obstructive pulmonary disease) Uncontrolled type 2 DM with peripheral circulatory disorder Hx of diabetic foot ulcer Type 2 DM with CKD and hypertension Dizziness Encounter for long-term opiate analgesic use Atrial fibrillation Hypertension Pacemaker Hyperlipidemia Encounter for long-term opiate analgesic use Benign prostatic hyperplasia with incomplete bladder emptying Chronic cervical radiculopathy Chronic low back pain Chronic lumbar radiculopathy DDD (degenerative disc disease), lumbar Facet joint disease Long-term use of high-risk medication continue to monitor use Fibromyalgia Restless legs syndrome Surgical History History of permanent cardiac pacemaker placement History of umbilical hernia repair S/P cardiac pacemaker procedure S/P laser cataract surgery 2 YEARS AGO BILAT Family History Father , 80-house fire No problems noted. Mother , 70 Cancer Brother Cancer Lung disease Chronic kidney disease (CKD) Sister Cancer CAD (coronary artery disease) Diabetes Daughter Diabetes Family/Other Diabetes Denies family history of Clotting disorder Dementia Suicide Anesthesia complication Bleeding disorder Stroke Social History Smoking and tobacco/nicotine status: never used tobacco/nicotine Second hand smoke exposure: No Alcohol intake: never Substance/Drug Use: never Adopted: No Marital status: / Current occupational status: retired Physical Exam 2 Narrative: EXAM NARRATIVE: General: Alert, no acute distress. Skin: Warm, dry. Head: Normocephalic, atraumatic. Neck: Supple, trachea midline. Eye: Extraocular movements are intact. Ears, nose, mouth and throat: mucosa moist. Cardiovascular: Regular, Normal peripheral perfusion. Respiratory: Coarse lung sounds, diminished at the bases, 3+ pitting edema of the legs and abdominal wall. Gastrointestinal: Soft, Nontender, Non distended Musculoskeletal: Normal ROM, no deformity. Neurological: Alert and oriented, No focal neurological deficit observed. Psychiatric: Cooperative, appropriate mood & affect. Course 2 Vital Signs: Vital signs: Vital Signs Temperature 97.7 F 11/06/24 20:11 Pulse Rate 74 11/06/24 20:48 Respiratory Rate 20 H 11/06/24 20:48 Blood Pressure 120/85 11/06/24 20:48 Pulse Oximetry 93 11/06/24 20:48 Oxygen Delivery Me thod Room Air 11/06/24 20:11 MDM - SOB/Dyspnea Medical Decision Making Differential diagnosis for patient with shortness of breath includes but is not limited to and based on the above HPI, review of systems and physical exam: Pneumonia. Bronchitis. Asthma or COPD with acute exacerbation. Acute coronary syndrome / NE. Pulmonary embolism. Anxiety. Congestive heart failure. Viral infections including influenza and Covid-19. Atrial fibrillation. Anxiety. Pleural effusion. Pneumothorax. Orders placed to evaluate differential diagnosis based on the above differential, HPI and physical exam EKG: Time 2016. Rate 84. Normal sinus rhythm, No ST-T changes, no ectopy, paced rhythm, this was reviewed and interpreted by myself the emergency room physician at 2019 Lab Review: Laboratory results were reviewed and interpreted by myself the emergency room physician. No leukocytosis. Mild polycythemia. BUN/creatinine are slightly elevated over his normal at 35 and 1.6. proBNP is above recent at over 5000 but has been higher in the past. Initial troponin is slightly elevated likely due to his renal function. Chest x-ray: Cardiomegaly, pleural effusions, pulmonary edema. AICD/pacemaker in place. This was reviewed and interpreted by myself the emergency room physician. I also reviewed the radiology report. I reviewed the patient's medical record. Reexamination: Patient says his breathing has improved some with 80 mg IV Lasix. He says he had a large amount of output. I examined the patient's abdomen with an ultrasound and he has quite a bit of ascites on top of abdominal wall edema. Abdomen is very tight. I think that consideration of a paracentesis tomorrow might be helpful. Consultation: I spoke with Dr. Perez who is on-call for hospitalist service who agrees to admission to observation. Assessment and plan: Congestive heart failure Ascites Anasarca Chronic kidney disease -I discussed the patient with the hospitalist on-call who is admitting the patient. - Discussed findings and plan with patient. Answered any questions. - All laboratory values were reviewed and interpreted personally by myself, the ER physician - All imaging was reviewed and interpreted personally by myself, the ER physician. - Evaluation and treatment of this problem were appropriate in the emergency setting Lab Data 11/06/24 20:10 11/06/24 20:10 Labs/Radiology: Radiology Impressions Chest X-Ray 11/06/24 20:14 IMPRESSION: As above. Laboratory Results WBC 10.30 10^3/uL (3.29-11.43) 11/06/24 20:10 RBC 5.43 10^6/uL (3.85-5.65) 11/06/24 20:10 Hgb 17.20 g/dL (11.27-16.99) H 11/06/24 20:10 Hct 52.4 % (37-53) 11/06/24 20:10 MCV 96.5 fl (82-101) 11/06/24 20:10 MCH 31.7 pg (27-33) 11/06/24 20:10 MCHC 32.8 g/dL (30-55) 11/06/24 20:10 RDW 17.5 % (12.1-15.1) H 11/06/24 20:10 Plt Count 161 10^3/cmm (157-399) 11/06/24 20:10 MPV 9.9 fL (7.4-10.4) 11/06/24 20:10 Neut % (Auto) 51.2 % 11/06/24 20:10 Lymph % (Auto) 33.0 % 11/06/24 20:10 Stewart % (Auto) 9.1 % 11/06/24 20:10 Eos % (Auto) 5.4 % 11/06/24 20:10 Baso % (Auto) 1.0 % 11/06/24 20:10 Neut # (Auto) 5.27 10^3/uL (1.8-7.7) 11/06/24 20:10 Lymph # (Auto) 3.4 10^3/uL (0.8-4.8) 11/06/24 20:10 Stewart # (Auto) 0.9 10^3/uL (0.2-0.9) 11/06/24 20:10 Eos # (Auto) 0.6 10^3/uL (0.0-0.8) 11/06/24 20:10 Baso # (Auto) 0.1 10^3/uL (0.0-0.1) 11/06/24 20:10 Nucleated RBC % (auto) 0 % 11/06/24 20:10 Nucleated RBCs # 0.0 /100WBC 11/06/24 20:10 Sodium 140 mmol/L (136-145) 11/06/24 20:10 Potassium 4.5 mmol/L (3.5-5.1) 11/06/24 20:10 Chloride 99 mmol/L (98-107) 11/06/24 20:10 Carbon Dioxide 27 mmol/L (22-29) 11/06/24 20:10 Anion Gap 18.5 (5-19) 11/06/24 20:10 BUN 35 mg/dL (8-23) H 11/06/24 20:10 Creatinine 1.6 mg/dL (0.7-1.2) H 11/06/24 20:10 GFR Calculation Not Reportable 11/06/24 20:10 Glucose 147 mg/dL (65-115) H 11/06/24 20:10 Calculated Osmolality 301 mOsm/kg (285-295) H 11/06/24 20:10 Lactic Acid 1.5 mmol/L (0.5-2.2) 11/06/24 20:30 Calcium 9.8 mg/dL (8.5-10.5) 11/06/24 20:10 Total Bilirubin 1.6 mg/dL (0.15-1.2) H 11/06/24 20:10 AST 51 U/L (0-40) H 11/06/24 20:10 ALT 22 U/L (0-41) 11/06/24 20:10 Alkaline Phosphatase 86 U/L (40-130) 11/06/24 20:10 Troponin T Baseline 57 ng/L (0-15) H 11/06/24 20:10 NT-Pro-B Natriuret Pep 2940 pg/mL (0-450) H 11/06/24 20:10 Total Protein 6.9 g/dL (6.6-8.7) 11/06/24 20:10 Albumin 4.3 g/dL (3.5-5.2) 11/06/24 20:10 Globulin 2.6 g/dL (1.3-4.6) 11/06/24 20:10 All radiology interpretation(s) finalized by discharge Discharge Plan Discharge Patient Disposition: Placed in Observation Admit Provider: Morris Perez Clinical Impression: Congestive heart failure, Anasarca, Ascites Coding Level of Care Code ED Dial Maker for Guerrero Menchaca
[2024-11-06 20:37] LABS: Basophils # 0.1 10^3/uL (0.0-0.1); Eosinophils # 0.6 10^3/uL (0.0-0.8); Eosinophils % 5.4 %; Hematocrit 52.4 % (37-53); Lymphocytes # 3.4 10^3/uL (0.8-4.8); Mean Corpuscular HGB Conc 32.8 g/dL (30-55); Mean Corpuscular Hemoglobin 31.7 pg (27-33); Mean Corpuscular Volume 96.5 fl (82-101); Mean Platelet Volume 9.9 fL (7.4-10.4); Monocytes # 0.9 10^3/uL (0.2-0.9); Monocytes % 9.1 %; Neutrophils # 5.27 10^3/uL (1.8-7.7); Neutrophils % 51.2 %; Nucleated Red Blood Cells % 0 %; Platelet Count 161 10^3/cmm (157-399); Red Blood Count 5.43 10^6/uL (3.85-5.65); Red Cell Distribution Width 17.5 % (12.1-15.1)
[2024-11-06 20:41] LABS: Troponin(5th) Baseline 57 ng/L (0-15)
[2024-11-06 20:48] VITALS: BP 120/85; PULSE 74; RESP 20; O2SAT 93
[2024-11-06 20:49] LABS: Alanine Aminotransferase 22 U/L (0-41); Albumin Level 4.3 g/dL (3.5-5.2); Alkaline Phosphatase 86 U/L (40-130); Aspartate Amino Transferase 51 U/L (0-40); Blood Urea Nitrogen 35 mg/dL (8-23); Calcium 9.8 mg/dL (8.5-10.5); Chloride 99 mmol/L (98-107); Creatinine Clr Calc Pharmacy 47.1178; Globulin 2.6 g/dL (1.3-4.6); Glucose 147 mg/dL (65-115); NT Pro B Type Natriuretic Pept 2940 pg/mL (0-450); Osmolality Calculated 301 mOsm/kg (285-295); Potassium 4.5 mmol/L (3.5-5.1); Sodium 140 mmol/L (136-145); Total Bilirubin 1.6 mg/dL (0.15-1.2); Total Protein 6.9 g/dL (6.6-8.7)
[2024-11-06] MEDS: FUROsemide 10 mg/mL SDV 10mL 80 MG IVP (20:53)
[2024-11-06 20:54] LABS: Anion Gap 18.5 (5-19); Carbon Dioxide 27 mmol/L (22-29)
[2024-11-06 20:59] LABS: Lactic Sepsis W/Reflex 1.5 mmol/L (0.5-2.2)
[2024-11-06 21:18] VITALS: PULSE 84; RESP 24; O2SAT 92
--- NOTE | 2024-11-06 21:37 | P.HP_ITS ---
Providers/Chief Complaint 2 Primary Care Provider: Tina Lipscomb NP Chief Complaint: resp distress History of Present Illness Timothy Casey is a 84 year old male past medical history significant for multiple comorbidities including atrial fibrillation, congestive heart failure, sleep apnea, diabetes mellitus, peripheral vascular disease, and congestive heart failure with borderline ejection fraction of 45% recently started on hospice who presents to the emergency department with respiratory distress and severe volume overload. Patient endorses shortness of breath, severe abdominal distention, severe edema, orthopnea, and PND. He states that his weight was 220 on September 27. States several days ago when he weighed it was 271 pounds. 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 He is currently taking 40 mg daily. He reports a history of congestive heart failure states his ejection fraction was 45% but he was recently told that it had improved. He is not sure what the current number is. They had home health set up sometime ago which include daily weights and his symptoms were somewhat well-controlled at that time. His insurance quit paying for it. Since that time his volume status has been poor. They ultimately chose hospice care due to his severe volume overload and inability to have home health. In the emergency department, patient was found to be severely volume overloaded. He denies any history of liver disease. Denies prior paracentesis. Patient reports he is Nondenominational. He does not accept blood products. He reports he is DNR but is okay with cardioversion if needed. Review of Systems 2 Narrative: A complete review of systems was obtained and is negative except as stated in HPI. Medications/Allergies Home Medications ?Medication ?Instructions ?Recorded ?Confirmed ?Last Taken ?Type lancets 18 gauge #100 04/06/22 01/22/23 Un known Rx albuterol sulfate 0.63 mg/3 mL 0.63 mg (3 mL) inhalati on QID PRN 01/07/23 01/22/23 Unknown Rx solution for nebulization shortness of breath or wheez ing #90 mL nebulizer kit #1 01/12/23 01/22/23 Unkn own Rx nebulizer #1 01/14/23 01/22/23 Unkn own Rx albuterol sulfate 90 mcg/actuation 2 puff inhalation Q 4H PRN 01/18/23 01/22/23 Unknown History aerosol inhaler Shortness Of Breath amiodarone 200 mg tablet 200 mg PO BID@07,19 01/18/23 01/22/23 Unknown History gabapentin 100 mg capsule 100 mg PO BEDTIME@2130 01/1801/22/23 Unknown History glimepiride 4 mg tablet 8 mg PO DAILY@07 01/18/23 Unknown History metformin 750 mg tablet,extended 750 mg PO BEDTIME@19 01/18/23 01/22/23 Unknown History release 24 hr rivaroxaban 20 mg tablet (Xarelto) 20 mg PO DAILY@07 0 01/18/23 01/22/23 Unknown History blood sugar diagnostic (True #100 ea 01/28/23 Unknown Rx Metrix Glucose Test Strip) tamsulosin 0.4 mg capsule See Rx Instructions .Route 0 03/31/23 Unknown Rx .COMPLEX #90 caps hydralazine 50 mg tablet See Rx Instructions .Route 1 10/03/22 Unknown Rx .COMPLEX #270 tabs amlodipine 10 mg tablet 10 mg PO DAILY@07 #90 tabs 0 10/05/23 Unknown Rx furosemide 20 mg tablet See Rx Instructions .Route 0 11/09/23 Unknown Rx .COMPLEX #30 tabs pravastatin 40 mg tablet See Rx Instructions .Route 0 02/16/24 Unknown Rx .COMPLEX #90 tabs pantoprazole 40 mg tablet,delayed See Rx Instructions .Route 03/01/24 Unknown Rx release .COMPLEX #90 tabs nitroglycerin 0.4 mg sublingual See Rx Instructions .R oute 05/02/24 Unknown Rx tablet .COMPLEX #25 tabs isosorbide mononitrate 120 mg See Rx Instructions .Rou te 10/10/24 Unknown Rx tablet,extended release 24 hr .COMPLEX #90 tabs Allergies Allergy/AdvReac Type Severity Reaction Status Date / Time methadone Allergy NA Verified 11/06/24 20:18 chlorthalidone AdvReac Severe nausea Verified 11/06/24 20:18 PFSH Acute 2 PFSH: Medical History Pneumonia Shortness of breath COPD (chronic obstructive pulmonary disease) Uncontrolled type 2 DM with peripheral circulatory disorder Hx of diabetic foot ulcer Type 2 DM with CKD and hypertension Dizziness Encounter for long-term opiate analgesic use Atrial fibrillation Hypertension Pacemaker Hyperlipidemia Encounter for long-term opiate analgesic use Benign prostatic hyperplasia with incomplete bladder emptying Chronic cervical radiculopathy Chronic low back pain Chronic lumbar radiculopathy DDD (degenerative disc disease), lumbar Facet joint disease Long-term use of high-risk medication continue to monitor use Fibromyalgia Restless legs syndrome Surgical History History of permanent cardiac pacemaker placement History of umbilical hernia repair S/P cardiac pacemaker procedure S/P laser cataract surgery 2 YEARS AGO BILAT Family History Father , 80-house fire No problems noted. Mother , 70 Cancer Brother Cancer Lung disease Chronic kidney disease (CKD) Sister Cancer CAD (coronary artery disease) Diabetes Daughter Diabetes Family/Other Diabetes Denies family history of Clotting disorder Dementia Suicide Anesthesia complication Bleeding disorder Stroke Social History Smoking and tobacco/nicotine status: never used tobacco/nicotine Second hand smoke exposure: No Alcohol intake: never Substance/Drug Use: never Adopted: No Marital status: / Current occupational status: retired Vitals/I&O/Wt Last Vital Signs Temp 97.7 F 11/06/24 20:11 Pulse 74 11/06/24 20:48 Resp 20 H 11/06/24 20:48 BP 120/85 11/06/24 20:48 Pulse Ox 93 11/06/24 20:48 O2 Del Method Room Air 11/06/24 20:11 11/06/24 11/06/24 11/06/24 06:59 14:59 22:59 Intake Total 0 / 0 Balance 0 / 0 Weight last 48 hrs Weight 122.47 kg Physical Exam 2 Narrative: General: Patient is awake. Appears fatigued. Pleasant. Head: Normocephalic. Atraumatic. EOM intact. Neck: Elevated JVD. Cardiovascular: RRR. No gallops. No murmurs. 4+ pitting edema bilateral lower extremities extending from feet to waist. Lungs: Breath sounds are markedly diminished bilateral bases. There is diffuse wheezing throughout bilateral lung brantley. On supplemental oxygen support. Skin: No jaundice. No rashes. Abdomen: Abdomen severely distended. Equivocal fluid wave. Mildly tender to deep palpation. Bowel sounds present. Extremities: There are reddish discoloration with coolness of the right lower extremity. Sensations intact. Musculoskeletal: Lower joints are swollen. Neurological: Moves all 4 extremities. No myoclonus. Data 11/06/24 20:10 11/06/24 20:10 A&P Assessment and plan (1) Congestive heart failure: Patient presents with severe volume overload He denies prior history of liver disease Reports history of heart failure with reduced ejection fraction with reportedly recovered EF but unsure of current EF Request complete echocardiogram Start Lasix drip Sen catheter for strict I's and O's Monitor electrolytes (2) Ascites: Abdomen severely distended, suspected ascites Limited ultrasound to confirm ascites Denies history of known liver disease Check INR and hold anticoagulants IR consult for paracentesis Of note he is Nondenominational (albumin technically is a blood fraction product), would need to confirm whether or not he is okay to receive albumin infusions if needed (3) Anasarca: Patient with severe anasarca Volume control with IV diuresis and possible paracentesis I discussed with daughter that Lasix may not be a good option after discharge due to the sensitivity with gastric absorption He may be a better candidate for Bumex in the future Further management as above (4) Hyperbilirubinemia: Hyperbilirubinemia with transaminitis Denies history of liver disease Presentation suspected to be congestive hepatopathy (5) Atrial fibrillation: Hold anticoagulation for possible paracentesis tomorrow Monitor heart rate Qualifiers: Atrial fibrillation type: longstanding persistent Qualified Code(s): I 48.11 - Longstanding persistent atrial fibrillation (6) Diabetes mellitus: Sliding-scale insulin correction Avoid hypoglycemia (7) Erythema: Erythema right leg Suspect poor peripheral perfusion Check inflammatory markers Serial exams (8) Renal insufficiency: Monitor renal function Plan DVT prophylaxis: SCD CODE STATUS: AND PDMP PDMP Reviewed: Not Reviewed Attestations 2 Medical Necessity Statement*: Patient presents with severe volume overload with expected hospitalization not to cross 2 midnights for IV Lasix infusion, serial labs, paracentesis evaluation, echo and supportive care. Coding Level of Care Code Acute Code for Chg Fwd Diagnoses Congestive heart failure I50.9 Ascites R18.8 Anasarca R60.1 Hyperbilirubinemia E80.6 Longstanding persistent atrial fibrillation I48.11 Atrial fibrillation type: longstanding persistent Diabetes mellitus E11.9 Erythema L53.9 Renal insufficiency N28.9
--- NOTE | 2024-11-06 22:26 | USCV_ITS ---
Timothy Casey Age: 84 Gender: M : 1940 Exam Date: 11/06/2024 23:54 Ordering Phys: Morris Perez MD Technologist: JEWEL Exam Location: [facility] [place] Indication: This is a hospice patient presenting with SOB, history of pacer 2015, afib, sleep apnea, DM, PVD BP: 124 / 91 HR: 70 Rhythm: Paced rhythm with strings of Atrial Fibrillation Technical Quality: Adequate MEASUREMENTS (Male / Female) Normal Values 2D ECHO LVOT Diameter 1.8 cm LV Ejection Fraction MOD 4C 35.8 % LV Ejection Fraction MOD 2C 35.7 % LV Ejection Fraction 2C AL 37.0 % LA Diameter 3.3 cm Aorta at Sinotubular Diameter 3.2 cm IVC Diameter 2.8 cm M-MODE LA Ao Ratio MM 1.1 AV Cusp Separation MM 2.2 cm DOPPLER AV Peak Velocity 89.0 cm/s LVOT Peak Velocity 51.0 cm/s AV Area Cont Eq vti 1.7 cm squared AV Area Cont Eq pk 1.4 cm squared MV Peak Velocity 84.0 cm/s MV Area PHT 3.7 cm squared Mitral E to A Ratio 0.8 TV Peak Velocity 210.8 cm/s TR Peak Velocity 229.0 cm/s TR Peak Gradient 21.0 mmHg TV Peak E Velocity 57.0 cm/s PV Peak Velocity 67.0 cm/s FINDINGS Left Ventricle Normal LV size with dyskinetic interventricular septum. LV ejection fraction around 36% Right Ventricle Pacemaker/defibrillator wire in the right ventricle. The ventricle is mildly dilated with a slightly diminished ejection fraction. Right Atrium Moderately increased right atrial size. Pacemaker/defibrillator wire in the right atrium Left Atrium Possibly of normal size Mitral Valve No gross abnormalities noted Aortic Valve No gross abnormalities noted Tricuspid Valve Moderately severe tricuspid valve regurgitation. Pulmonic Valve Mild pulmonary valve regurgitation. Pericardium No pericardial effusion. Aorta Normal ascending aorta dimension. IVC Estimated right atrial pressure 15 mmHg.--dilated IVC with decreased respiratory variation. CONCLUSIONS Normal LV size with dyskinetic interventricular septum. LV ejection fraction around 36%. Pacemaker/defibrillator wire in the right ventricle. The ventricle is mildly dilated with a slightly diminished ejection fraction. Moderately increased right atrial size. Pacemaker/defibrillator wire in the right atrium. Moderately severe tricuspid valve regurgitation. Estimated PA pressure of around 36 mmHg Mild pulmonary valve regurgitation. Estimated right atrial pressure 15 mmHg.--dilated IVC with decreased respiratory variation. Technically somewhat limited study Compared to the study from 01/18/2023, there is a drop in the LV ejection fraction from 55% to 36% Dr Lisandro Mcgregor MD [facility] (Electronically Signed) Final Date: 07 November 2024 09:23 S
--- NOTE | 2024-11-06 22:26 | US_ITS ---
WS: [id number] Abdominal ultrasound, limited. History: Evaluate for ascites. Comparison: None. All 4 quadrants are imaged by ultrasound to evaluate for ascites. Ascites is noted in all 4 quadrants. Estimated moderate amount of ascites. US/US abdomen lmt fluid [id number] IMPRESSION: Moderate ascites.
[2024-11-06 22:46] LABS: INR 1.24 (0.8-1.2)
[2024-11-06 22:48] VITALS: BP 135/92; PULSE 83; RESP 26; O2SAT 96
[2024-11-07] VITALS (10 sets, daily range): BP systolic 99–139; BP diastolic 62–86; PULSE 72–114; RESP 13–19; TEMP 36.4–36.8; O2SAT 91–95
[2024-11-07 00:18] LABS: Procalcitonin 0.09 ng/mL (0-0.5)
[2024-11-07] MEDS: FUROsemide 100 MG in sodium chloride 0.9% 40 ML IV (00:58)
[2024-11-07 01:56] LABS: Basophils # 0.1 10^3/uL (0.0-0.1); Eosinophils # 0.7 10^3/uL (0.0-0.8); Eosinophils % 6.7 %; Hematocrit 49.9 % (37-53); Lymphocytes # 3.4 10^3/uL (0.8-4.8); Lymphocytes % 32.1 %; Mean Corpuscular HGB Conc 31.9 g/dL (30-55); Mean Corpuscular Hemoglobin 30.9 pg (27-33); Mean Corpuscular Volume 97.1 fl (82-101); Mean Platelet Volume 10.1 fL (7.4-10.4); Monocytes # 1.1 10^3/uL (0.2-0.9); Monocytes % 10.1 %; Neutrophils # 5.24 10^3/uL (1.8-7.7); Neutrophils % 49.8 %; Nucleated Red Blood Cells % 0 %; Platelet Count 161 10^3/cmm (157-399); Red Blood Count 5.14 10^6/uL (3.85-5.65); Red Cell Distribution Width 17.3 % (12.1-15.1); White Blood Count 10.52 10^3/uL (3.29-11.43)
[2024-11-07 02:12] LABS: Troponin 5 6HR 59.18 ng/L (0-15); Troponin 5 6HR Delta 2.18 ng/L (0-12)
[2024-11-07 02:14] LABS: Alanine Aminotransferase 20 U/L (0-41); Albumin Level 3.9 g/dL (3.5-5.2); Alkaline Phosphatase 73 U/L (40-130); Anion Gap 15.1 (5-19); Aspartate Amino Transferase 44 U/L (0-40); Blood Urea Nitrogen 34 mg/dL (8-23); Calcium 9.5 mg/dL (8.5-10.5); Carbon Dioxide 31 mmol/L (22-29); Chloride 101 mmol/L (98-107); Creatinine Clr Calc Pharmacy 47.8057; Globulin 2.4 g/dL (1.3-4.6); Glucose 78 mg/dL (65-115); Osmolality Calculated 302 mOsm/kg (285-295); Phosphorus 3.6 mg/dL (2.5-4.5); Potassium 4.1 mmol/L (3.5-5.1); Sodium 143 mmol/L (136-145); Total Bilirubin 1.7 mg/dL (0.15-1.2); Total Protein 6.3 g/dL (6.6-8.7)
--- NOTE | 2024-11-07 02:15 | ECG_ITS ---
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 Measurements Intervals [place] Rate: 75 P: 63 FL: 175 QRS: -82 QRSD: 175 T: 85 QT: 457 QTc: 514 Interpretive Statements mostly A sensed V paced rhythm ELECTRONIC VENTRICULAR PACEMAKER ABNORMAL RHYTHM ECG Compared to ECG 01/25/2023 21:26:02 Atrial-paced complex(es) or rhythm no longer present Electronically Signed On 11-08-2024 17:59:17 [facility] [facility] by Lisandro Mcgregor M.D. [email or web address]
[2024-11-07 06:13] LABS: Glucose Point of Care 78 mg/dL (70-110)
[2024-11-07 08:22] LABS: Bilirubin Urine Negative (Negative); Blood Urine 2+ (Negative); Glucose Urine UA Negative (Normal); Ketones Urine Negative (Negative); Leukocyte Esterase Urine Trace (Negative); Nitrate Urine Negative (Negative); Protein Urine Negative (Negative); Specific Gravity, Urine 1.008 (1.005-1.030); Urine Appearance Clear (CLEAR); Urine Color Yellow (Yellow); Urobilinogen Urine 0.2 mg/dL (Negative)
[2024-11-07 08:24] LABS: Add Urine Microscopic? YES; Bacteria Urine None Seen /hpf; RBC Urine 51-100 /hpf (0-2); Squamous Epithelial Cell Urine 0-5 /hpf (0-5)
[2024-11-07 08:44] LABS: Add Urine Culture? Yes
--- NOTE | 2024-11-07 09:03 | PC.PHAR ---
Daughter-Jenna will call back to verify pt meds. 11/06/24 9am
--- NOTE | 2024-11-07 09:29 | PC.PHAR ---
Updated medication list with daughter-Jenna. The following list was removed from pt chart. ProAir inhaler 2 puffs q4h prn. last fill 01/18/23 Amiodarone 200mg twice daily last fill 01/18/23 [id number] daily last fill 10/05/23 Furosemide 20mg dose change Hydralazine 50mg 1.5 tablet q8h last fill 08/13/23 Metformin 750mg at hs last fill 01/18/23 Pantoprazole 40mg daily last fill 03/01/24 90ds Xarelto 20mg daily last fill 01/18/23
[2024-11-07] MEDS: acetaminophen 325 mg Tablet 650 MG PO ×3 (09:51→21:48)
--- NOTE | 2024-11-07 09:58 | PC.CHAP ---
Pastoral Care Encounter/Spiritual Assessment Type of Contact [] Declined manager regional visit [] Patient/Family/Request visit [] Outpatient visit [] Follow-up visit [] Physician referral [] Code/Alert [] Routine visit [] Staff referral [] Actively dying [x] Patient sleeping [] Family support [] [] Out of room [] Palliative care [] [] Receiving care in room [] Pre-surgical visit [] Trauma [] Long length of stay [] ICU visit [] Other: Relational/Emotional Strength [] Patient feels connected with others/family/visitors/staff [] Distress [] Loneliness/isolation [] Abandonment Spirituality of Patient [] Person of Yovana [] Attends Confucianism of their Yovana [] Believes in Prayer [] Reads Bible or Mu-Ism materials [] There are Spiritual issues to be addressed Long Term Interventions [] Prayer [] Active listening [] Non-anxious presence [] Spiritual/emotional support [] Crisis/trauma care [] Spiritual counseling [] Bereavement support [] Provided bereavement packet [] Provided Bible/devotional materials [] Provided toy/stuffed animal, coloring book to patient or family member [] Provided Communion [] Anointing/[place] [] Salvation [] Completed spiritual assessment [] Other: Impact on Illness or Injury [] Angry [] Fearful [] Anxious [] Often cries [] Exhaustion [] Unable to work [] Unable to attend mormonism [] Unable to walk/stand [] Unable to read [] Unable to drive [] Unable to eat/drink [] Unable to sleep [] Unable to be with family [] Patient intubated [] Other: Summary Time spent with patient
[2024-11-07] MEDS: FUROsemide 10 mg/mL SDV 4mL 40 MG IVP ×2 (10:50→21:48)
[2024-11-07 11:22] LABS: Glucose Point of Care 147 mg/dL (70-110)
--- NOTE | 2024-11-07 12:21 | PC.NURSE ---
3.2L of fluid removed during paracentesis.
[2024-11-07] MEDS: insulin lispro 100 unit/1 mL SUBCUT (12:39)
[2024-11-07] MEDS: ipratropium-albuterol 3 mL Neb INHALATION (12:54)
--- NOTE | 2024-11-07 15:25 | P.PN_ITS ---
Subjective 2 Subjective: 84-year-old male with a past medical his tory of atrial fibrillation, heart failure with reduced ejection fraction (EF 45%), obstructive sleep apnea (non- compliant with CPAP), diabetes mellitus, and peripheral vascular disease presents with progressive swelling all over for the past two weeks. He describes swelling in his feet and belly, associated with difficulty lying down, standing up, and breathing. He has been taking Lasix 20 mg daily, which was increased to 40 mg daily, and then an additional diuretic was added (possibly metolazone). Despite taking Lasix 40 mg twice daily and the additional diuretic, his symptoms continued to worsen. He uses oxygen at home at 2 L/min and has a nebulizer for reactive airway disease. He denies any history of liver problems. The patient was recently enrolled in hospice care 3 days ago and has been set up with an oxygen concentrator at home.Chest X-ray: Worsening airspace opacities greatest at lung bases, interstitial markings, cardiomegaly with central pulmonary vascular congestion, and small bilateral pleural effusions.Abdominal ultrasound: Moderate ascites. Was started on lasix drip which was changed to IVP. Noted improvement in swelling however slightly. Wanting to resume hospice care at discharge. Vitals/I&O/Wt Last Vital Signs Temp 98.2 F 11/07/24 11:16 Pulse 114 H 11/07/24 13:25 Resp 18 11/07/24 12:54 BP 116/77 11/07/24 11:16 Pulse Ox 95 11/07/24 12:54 O2 Del Method Nasal Cannula 11/07/24 12:54 O2 Flow Rate 2 11/07/24 12:54 11/07/24 11/07/24 11/07/24 06:59 14:59 22:59 Intake Total 600 / 600 290 / 290 Output Total 3500 / 3500 1500 / 1500 Balance -2900 / -2900 -1210 / -1210 Weight last 48 hrs Weight 125.554 kg Weight 126.008 kg Weight 122.47 kg Physical Exam 2 Narrative: General: Patient is awake. Appears fatigued. Pleasant. Head: Normocephalic. Atraumatic. EOM intact. Neck: Elevated JVD. Cardiovascular: RRR. No gallops. No murmurs. 4+ pitting edema bilateral lower extremities extending from feet to waist. Lungs: Breath sounds are markedly diminished bilateral bases. There is diffuse wheezing throughout bilateral lung brantley. On supplemental oxygen support. Skin: No jaundice. No rashes. Abdomen: Abdomen severely distended. Equivocal fluid wave. Mildly tender to deep palpation. Bowel sounds present. Extremities: There are reddish discoloration with coolness of the right lower extremity. Sensations intact. Musculoskeletal: Lower joints are swollen. Neurological: Moves all 4 extremities. No myoclonus. Urinary Catheter Management: Sen: Cath Placed During This Visit: yes Urinary Catheter Date of Insertion: 11/07/24 Urinary Catheter Time of Insertion: 01:14 Data 11/07/24 01:45 11/07/24 01:45 A&P Assessment and plan (1) Congestive heart failure: (2) Ascites: (3) Anasarca: (4) Hyperbilirubinemia: (5) Atrial fibrillation: Qualifiers: Atrial fibrillation type: longstanding persistent Qualified Code(s): I 48.11 - Longstanding persistent atrial fibrillation (6) Diabetes mellitus: (7) Erythema: (8) Renal insufficiency: Plan Acute Decompensated Heart Failure with reduced EF - 84-year-old male with history of heart failure with reduced EF (36% on recent echo) presenting with progressive swelling, dyspnea, and orthopnea despite outpatient diuretic therapy with significant ascites. Differential Diagnosis: 1. Volume overload due to medication non-compliance or inadequate diuresis. 2. Progression of underlying heart failure. Plan: 1. Continue IV Lasix 40 mg twice daily. Unable to do lasix drip on med-surg 2. Given new worsening EF, will discuss goals of care, if wanting to persue cardiac ischemic workup 3. Daily weights, strict I/Os, electrolyte monitoring. 4. Hold off on cardiology consult for now 5. Sen was placed for I&O Ascites - Moderate ascites noted on abdominal ultrasound, likely secondary to heart failure and low albumin. Plan: 1. Ultrasound-guided paracentesis today 2. Monitor for signs of spontaneous bacterial peritonitis - less likely 3. Refused albumin infusion Atrial Fibrillation - History of atrial fibrillation, currently rate-controlled. Plan: 1. Continue current rate control therapy. 2. Resume OAC in am - Held for procedure today Reactive Airway Disease - Patient has a history of reactive airway disease and uses a nebulizer at home. - Currently wheezy on exam. Plan: 1. Duonebs PRN 2. Supplemental oxygen as needed Obstructive Sleep Apnea - History of obstructive sleep apnea, non-compliant with CPAP therapy. Plan: 1. Refused Hospice Care - Recently enrolled in hospice care 3 days ago. - Was set up with oxygen concentrator at home. Plan: 1. Wanting to resume hospice at discharge . PDMP PDMP Reviewed: Not Reviewed Attestations 2 Medical Necessity Statement*: Patient presents with severe volume overload with expected hospitalization not to cross 2 midnights for IV Lasix infusion, serial labs, paracentesis evaluation, echo and supportive care. Coding Level of Care Code Acute Code for g Fwd Diagnoses Congestive heart failure I50.9 Ascites R18.8 Anasarca R60.1 Hyperbilirubinemia E80.6 Longstanding persistent atrial fibrillation I48.11 Atrial fibrillation type: longstanding persistent Diabetes mellitus E11.9 Erythema L53.9 Renal insufficiency N28.9
[2024-11-07 16:44] LABS: Glucose Point of Care 107 mg/dL (70-110)
[2024-11-07 19:00] LABS: Cyto Order Verification No Order; PATH Referral YES
[2024-11-07 19:02] LABS: Body Fluid Polynuclear #Cells 0.022; Body Fluid WBC 314 /uL; Monocytes # Body Fluid 0.292
[2024-11-07 19:03] LABS: Apprearance, Body Fluid TURBID; Color, Body Fluid SLIGHT PINK
[2024-11-07 19:14] LABS: Body Fluid Specific Gravity 1.026
[2024-11-07 19:25] LABS: Albumin Body Fluid 1.9 g/dL; Fluid Laterality ASCITES FLUID; Total Protein Body Fluid 3.1 g/dL
[2024-11-07 20:55] LABS: Glucose Point of Care 112 mg/dL (70-110)
--- NOTE | 2024-11-07 22:26 | US_ITS ---
WS: [id number] ULTRASOUND-GUIDED THERAPEUTIC AND DIAGNOSTIC PARACENTESIS Procedure, risks, and complications have been explained to the patient. Consent is obtained. Utilizing aseptic technique and 1% buffered lidocaine, a small dermatome was made through which a 5 Swazi Yueh catheter was inserted. Approximately 3200 ml of opaque cream-colored with pink tinge peritoneal fluid was obtained without difficulty. No complications encountered. Specimen collected for analysis. US/US paracentesis abd w [id number] IMPRESSION: Uncomplicated paracentesis yielding 3200 ml of peritoneal fluid. Peritoneal fluid removed is opaque, thick with cream color and pink-tinged.
[2024-11-07] MEDS: benzonatate 100 mg Capsule 200 MG PO (23:15)
[2024-11-08] VITALS: BP 121/74; PULSE 76; RESP 17; TEMP 37.1; O2SAT 94
[2024-11-08 04:00] VITALS: BP 130/88; PULSE 88; RESP 18; TEMP 37.1; O2SAT 95
[2024-11-08 05:52] VITALS: PULSE 89
[2024-11-08 06:30] LABS: Glucose Point of Care 61 mg/dL (70-110)
[2024-11-08 07:36] VITALS: BP 145/87; PULSE 87; RESP 20; TEMP 36.3; O2SAT 93
[2024-11-08] MEDS: FUROsemide 10 mg/mL SDV 4mL 40 MG IVP (08:47)
[2024-11-08] MEDS: acetaminophen 325 mg Tablet 650 MG PO (08:47)
[2024-11-08] MEDS: benzonatate 100 mg Capsule 200 MG PO (08:47)
--- NOTE | 2024-11-08 10:02 | PC.CHAP ---
Pastoral Care Encounter/Spiritual Assessment Type of Contact [] Declined avionic technician visit [] Patient/Family/Request visit [] Outpatient visit [] Follow-up visit [] Physician referral [] Code/Alert [] Routine visit [] Staff referral [] Actively dying [] Patient sleeping [] Family support [] [] Out of room [] Palliative care [] [x] Receiving care in room [] Pre-surgical visit [] Trauma [] Long length of stay [] ICU visit [] Other: Relational/Emotional Strength [] Patient feels connected with others/family/visitors/staff [] Distress [] Loneliness/isolation [] Abandonment Spirituality of Patient [] Person of Yovana [] Attends Yazidism of their Yovana [] Believes in Prayer [] Reads Bible or Jehovah'S Witness materials [] There are Spiritual issues to be addressed Legislative Advocate Interventions [] Prayer [] Active listening [] Non-anxious presence [] Spiritual/emotional support [] Crisis/trauma care [] Spiritual counseling [] Bereavement support [] Provided bereavement packet [] Provided Bible/devotional materials [] Provided toy/stuffed animal, coloring book to patient or family member [] Provided Communion [] Anointing/[place] [] Salvation [] Completed spiritual assessment [] Other: Impact on Illness or Injury [] Angry [] Fearful [] Anxious [] Often cries [] Exhaustion [] Unable to work [] Unable to attend mandaen [] Unable to walk/stand [] Unable to read [] Unable to drive [] Unable to eat/drink [] Unable to sleep [] Unable to be with family [] Patient intubated [] Other: Summary Time spent with patient
[2024-11-08 10:07] LABS: Basophils # 0.1 10^3/uL (0.0-0.1); Basophils % 1.3 %; Eosinophils # 0.7 10^3/uL (0.0-0.8); Eosinophils % 6.7 %; Hematocrit 51.5 % (37-53); Lymphocytes # 2.8 10^3/uL (0.8-4.8); Lymphocytes % 27.8 %; Mean Corpuscular HGB Conc 31.8 g/dL (30-55); Mean Corpuscular Hemoglobin 31.1 pg (27-33); Mean Corpuscular Volume 97.7 fl (82-101); Mean Platelet Volume 9.8 fL (7.4-10.4); Monocytes # 0.9 10^3/uL (0.2-0.9); Neutrophils % 54.7 %; Nucleated Red Blood Cells % 0 %; Platelet Count 161 10^3/cmm (157-399); Red Blood Count 5.27 10^6/uL (3.85-5.65); Red Cell Distribution Width 17.7 % (12.1-15.1); White Blood Count 10.06 10^3/uL (3.29-11.43)
[2024-11-08 10:28] LABS: Anion Gap 16.2 (5-19); Blood Urea Nitrogen 29 mg/dL (8-23); Calcium 9.2 mg/dL (8.5-10.5); Carbon Dioxide 29 mmol/L (22-29); Chloride 98 mmol/L (98-107); Creatinine Clr Calc Pharmacy 58.7402; Glucose 158 mg/dL (65-115); Osmolality Calculated 297 mOsm/kg (285-295); Potassium 4.2 mmol/L (3.5-5.1); Sodium 139 mmol/L (136-145)
[2024-11-08 10:52] LABS: Glucose Point of Care 133 mg/dL (70-110)
[2024-11-08 11:30] VITALS: BP 145/87; PULSE 87; RESP 20; TEMP 36.3; O2SAT 93
--- NOTE | 2024-11-15 20:13 | P.DS_ITS ---
Discharge Providers Date of Admission: 11/06/24 21:37 Date of Discharge: November 08, 2024 Attending Provider at Admission: Morris Perez MD Attending Provider at Discharge: Rashida Grayson Consults: IR Primary Care Provider: Tina Lipscomb NP Diagnoses at Discharge Discharge Diagnosis (1) Congestive heart failure: Status: Acute (2) Ascites: Status: Acute (3) Anasarca: Status: Acute (4) Hyperbilirubinemia: Status: Acute (5) Atrial fibrillation: Status: Acute Qualifiers: Atrial fibrillation type: longstanding persistent Qualified Code(s): I48.11 - Longstanding persistent atrial fibrillation (6) Diabetes mellitus: Status: Acute (7) Erythema: Status: Acute (8) Renal insufficiency: Status: Acute Reason for Visit Reason for Visit: resp distress Hospital Course Hospital Course 84-year-old male with a complex medical history including atrial fibrillation, heart failure (EF 45%), untreated obstructive sleep apnea, diabetes mellitus, and peripheral vascular disease was admitted for progressive, generalized edema that had worsened over two weeks despite outpatient diuretic adjustments. The patient had recently enrolled in hospice care three days prior to admission. Upon admission, diagnostic imaging revealed worsening bilateral airspace opacities, cardiomegaly with pulmonary vascular congestion, and bilateral pleural effusions on chest X-ray. An abdominal ultrasound confirmed moderate ascites. The patient's ejection fraction had declined to 36% on recent echo, indicating progression of his heart failure. Initial treatment focused on volume management with IV Lasix, which was initially administered as a continuous drip but later changed to intermittent bolus dosing due to med-surg unit limitations. The patient underwent an ultrasound-guided paracentesis with removal of 3200mL of fluid, though he declined albumin infusion post-procedure. His anticoagulation was briefly held for the paracentesis and resumed the following day. During the hospital stay, the patient experienced some wheezing, which was managed with PRN Duonebs. He continued to require supplemental oxygen but remained non-compliant with CPAP therapy for his sleep apnea. A crucial [id number] discussion took place on November 08, 2024, with both the patient and his daughter present. Despite concerns about possible spontaneous bacterial peritonitis and the need for further cardiac workup, the patient expressed a clear desire to return to hospice care. I discussed with them the likelihood of symptom recurrence and provided information about the potential benefit of a PleurX catheter for future management. The patient reaffirmed his DNI/DNR status. The patient was ultimately discharged in fair condition to resume hospice care at home, with both he and his daughter understanding the high likelihood of symptom recurrence. His modest improvement in swelling and successful paracentesis provided temporary relief, though the underlying cardiac condition remained progressive. Physical Exam Narrative: General: Patient is awake. Appears fatigued. Pleasant. Head: Normocephalic. Atraumatic. EOM intact. Neck: Elevated JVD. Cardiovascular: RRR. No gallops. No murmurs. 4+ pitting edema bilateral lower extremities extending from feet to waist. Lungs: Breath sounds are markedly diminished bilateral bases. There is diffuse wheezing throughout bilateral lung brantley. Slightly improved Skin: No jaundice. No rashes. Abdomen: Abdomen distended - slightly less than admission Mildly tender to deep palpation. Bowel sounds present. Extremities: There are reddish discoloration with coolness of the right lower extremity. Sensations intact. Musculoskeletal: Lower joints are swollen. Neurological: Moves all 4 extremities. No myoclonus. Urinary Catheter Management: Sen: Cath Placed During This Visit: yes, but has since been removed by the nurse Reason for Continuing Indwelling Catheter: Decision to DC Catheter Urinary Catheter Date of Insertion: 11/07/24 Urinary Catheter Time of Insertion: 01:14 Date Urinary Catheter Removed: 11/08/24 Time Urinary Catheter Discontinued: 10:58 Discharge Data Studies Completed and Pending Completed Studies During Hospitalization Category Date Time Status XR chest 1V portable [id number] Stat Exams 11/06/24 20:14 Completed CV. echo complete* [id number] Stat Ultrasound 11/06/24 22:26 Completed US abdomen lmt fluid [id number] Stat Ultrasound 11/06/24 22:26 Com[place]acent[place] abd w [id number] Stat Ultrasound 11/07/24 22:26 Completed Radiology Impressions Chest X-Ray 11/06/24 20:14 IMPRESSION: As above. Abdomen Ultrasound 11/06/24 22:26 IMPRESSION: Moderate ascites. Paracentesis Ultrasound 11/07/24 22:26 IMPRESSION: Uncomplicated paracentesis yielding 3200 ml of peritoneal fluid. Peritoneal fluid removed is opaque, thick with cream color and pink-tinged. Laboratory Results WBC 10.06 10^3/uL (3.29-11.43) 11/08/24 09:51 RBC 5.27 10^6/uL (3.85-5.65) 11/08/24 09:51 Hgb 16.40 g/dL (11.27-16.99) 11/08/24 09:51 Hct 51.5 % (37-53) 11/08/24 09:51 MCV 97.7 fl (82-101) 11/08/24 09:51 MCH 31.1 pg (27-33) 11/08/24 09:51 MCHC 31.8 g/dL (30-55) 11/08/24 09:51 RDW 17.7 % (12.1-15.1) H 11/08/24 09:51 Plt Count 161 10^3/cmm (157-399) 11/08/24 09:51 MPV 9.8 fL (7.4-10.4) 11/08/24 09:51 Neut % (Auto) 54.7 % 11/08/24 09:51 Lymph % (Auto) 27.8 % 11/08/24 09:51 [place] % (Auto) 9.0 % 11/08/24 09:51 Eos % (Auto) 6.7 % 11/08/24 09:51 Baso % (Auto) 1.3 % 11/08/24 09:51 Neut # (Auto) 5.50 10^3/uL (1.8-7.7) 11/08/24 09:51 Lymph # (Auto) 2.8 10^3/uL (0.8-4.8) 11/08/24 09:51 [place] # (Auto) 0.9 10^3/uL (0.2-0.9) 11/08/24 09:51 Eos # (Auto) 0.7 10^3/uL (0.0-0.8) 11/08/24 09:51 Baso # (Auto) 0.1 10^3/uL (0.0-0.1) 11/08/24 09:51 Nucleated RBC % (auto) 0 % 11/08/24 09:51 Nucleated RBCs # 0.0 /100WBC 11/08/24 09:51 Differential Comment Yes 11/07/24 11:50 PT 16.50 SECONDS (12.1-14.9) H 11/06/24 22:32 INR 1.24 (0.8-1.2) H 11/06/24 22:32 Sodium 139 mmol/L (136-145) 11/08/24 09:51 Potassium 4.2 mmol/L (3.5-5.1) 11/08/24 09:51 Chloride 98 mmol/L (98-107) 11/08/24 09:51 Carbon Dioxide 29 mmol/L (22-29) 11/08/24 09:51 Anion Gap 16.2 (5-19) 11/08/24 09:51 BUN 29 mg/dL (8-23) H 11/08/24 09:51 Creatinine 1.3 mg/dL (0.7-1.2) H 11/08/24 09:51 GFR Calculation Not Reportable 11/08/24 09:51 Glucose 158 mg/dL (65-115) H 11/08/24 09:51 POC Glucose 133 mg/dL (70-110) H 11/08/24 10:37 Calculated Osmolality 297 mOsm/kg (285-295) H 11/08/24 09:51 Lactic Acid 1.5 mmol/L (0.5-2.2) 11/06/24 20:30 Calcium 9.2 mg/dL (8.5-10.5) 11/08/24 09:51 Phosphorus 3.6 mg/dL (2.5-4.5) 11/07/24 01:45 Magnesium 2.0 mg/dL (1.7-2.3) 11/07/24 01:45 Total Bilirubin 1.7 mg/dL (0.15-1.2) H 11/07/24 01:45 AST 44 U/L (0-40) H 11/07/24 01:45 ALT 20 U/L (0-41) 11/07/24 01:45 Alkaline Phosphatase 73 U/L (40-130) 11/07/24 01:45 Troponin T Baseline 57 ng/L (0-15) H 11/06/24 20:10 Troponin T 120 Minute 51.00 ng/L (0-15) H 11/06/24 20:10 Delta Troponin T -6.00 ABS# (0-10) L 11/06/24 20:10 Troponin T Hi Sens 6Hr 59.18 ng/L (0-15) H 11/07/24 01:45 Troponin T Hi Sens 6Hr Delta 2.18 ng/L (0-12) 11/07/24 01:45 NT-Pro-B Natriuret Pep 2940 pg/mL (0-450) H 11/06/24 20:10 Total Protein 6.3 g/dL (6.6-8.7) L 11/07/24 01:45 Albumin 3.9 g/dL (3.5-5.2) 11/07/24 01:45 Globulin 2.4 g/dL (1.3-4.6) 11/07/24 01:45 Procalcitonin 0.09 ng/mL (0-0.5) 11/06/24 20:10 Urine Color Yellow (Yellow) 11/06/24 07:55 Urine Appearance Clear (CLEAR) 11/06/24 07:55 Urine pH 5.0 (5-7) 11/06/24 07:55 Ur Specific [place] 1.008 (1.005-1.030) 11/06/24 07:55 Urine Protein Negative (Negative) 11/06/24 07:55 Urine Glucose (UA) Negative (Normal) 11/06/24 07:55 Urine Ketones Negative (Negative) 11/06/24 07:55 Urine Blood 2+ (Negative) A 11/06/24 07:55 Urine Nitrate Negative (Negative) 11/06/24 07:55 Urine Bilirubin Negative (Negative) 11/06/24 07:55 Urine Urobilinogen 0.2 mg/dL (Negative) 11/06/24 07:55 Ur Leukocyte Esterase Trace (Negative) A 11/06/24 07:55 Urine RBC 51-100 /hpf (0-2) H 11/06/24 07:55 Urine WBC 6-10 /hpf (0-5) 11/06/24 07:55 Ur Squamous Epith Cells 0-5 /hpf (0-5) 11/06/24 07:55 Amorphous Sediment Not Reportable 11/06/24 07:55 Urine Bacteria None seen /hpf (NONE) 11/06/24 07:55 Hyaline Casts 0.40 /lpf 11/06/24 07:55 Fluid Color Slight pink 11/07/24 11:50 Fluid Appearance Turbid 11/07/24 11:50 Fluid Specific [place] 1.026 11/07/24 11:50 Fluid pH 7.0 11/07/24 11:50 Fluid WBC 314 /uL 11/07/24 11:50 Fluid RBC 11.000 10^3/uL 11/07/24 11:50 Fld Polynuclear WBCs # 0.022 11/07/24 11:50 Fld Polynuclear WBCs % 7.000 % 11/07/24 11:50 Fl Mononucl WBCs #(Auto) 0.292 11/07/24 11:50 Fl Mononuclear % Auto 93.000 % 11/07/24 11:50 Fld Crystal Laterality Ascites fluid 11/07/24 11:50 Fluid Glucose 162.0 mg/dL 11/07/24 11:50 Fluid Total Protein 3.1 g/dL 11/07/24 11:50 Fluid Albumin 1.9 g/dL 11/07/24 11:50 Vitals Last Vital Signs Temp 97.4 F L 11/08/24 11:30 Pulse 87 11/08/24 11:30 Resp 20 H 11/08/24 11:30 BP 145/87 11/08/24 11:30 Pulse Ox 93 11/08/24 11:30 O2 Del Method Nasal Cannula 11/08/24 07:36 O2 Flow Rate 2.5 11/08/24 07:36 Discharge Plan Discharge Patient Disposition: Home Condition: Stable Prescriptions: New furosemide [Lasix] 40 mg tablet 40 mg PO BID Qty: 60 0RF Continued (DME) lancets 18 gauge misc See Rx Instructions .Route Qty: 100 1RF Rx Instructions: As directed albuterol sulfate 0.63 mg/3 mL solution for nebulization 0.63 mg inhalation QID PRN (Reason: shortness of breath or wheezing) Qty: 90 1RF (DME) nebulizer kit See Rx Instructions .Route .MEDSUPPLY Qty: 1 0RF Rx Instructions: As directed (DME) nebulizer See Rx Instructions .Route .MEDSUPPLY Qty: 1 0RF Rx Instructions: As directed (DME) True Metrix Glucose Test Strip Strip See Rx Instructions .Route Qty: 100 0RF Rx Instructions: 3-4 times daily nitroglycerin 0.4 mg tablet, sublingual See Rx Instructions .ROUTE .COMPLEX Qty: 25 0RF Dose Instruction: DISSOLVE ONE TABLET UNDER THE TONGUE EVERY 5 MINUTES NEEDED FOR CHEST PAIN. Rx Instructions: DISSOLVE ONE TABLET UNDER THE TONGUE EVERY 5 MINUTES NEEDED FOR CHEST PAIN. gabapentin 100 mg capsule 200 mg PO BID polysaccharide iron complex [Ferrex 150] 150 mg iron capsule 150 mg PO BID spironolactone 25 mg tablet See Rx Instructions .ROUTE .COMPLEX Rx Instructions: TAKE 2 TABLETS BY MOUTH ONCE DAILY FOR 3 DAYS , THEN 1 TABLET DAILY THEREAFTER. esomeprazole magnesium 40 mg capsule,delayed release(DR/EC) 40 mg PO DAILY metoprolol succinate 25 mg tablet extended release 24 hr 25 mg PO DAILY levocetirizine 5 mg tablet 5 mg PO QPM Ozempic 0.25 mg or 0.5 mg (2 mg/3 mL) pen injector 0.5 mg SUBCUT Q7D Rx Instructions: on Wednesday pravastatin 40 mg tablet 40 mg PO DAILY isosorbide mononitrate 120 mg tablet extended release 24 hr 120 mg PO DAILY tamsulosin 0.4 mg capsule 0.4 mg PO DAILY Discontinued glimepiride 4 mg tablet 8 mg PO DAILY@07 furosemide 40 mg tablet 40 mg PO DAILY insulin glargine [Lantus Solostar U-100 Insulin] 100 unit/mL (3 mL) insulin pen 10 unit SUBCUT DAILY Discharge Orders: Discharge Order (Routine); Ordered 11/08/24 Ordered By: Rashida Grayson Referrals: Tina Lipscomb NP [Primary Care Provider] - 11/14/24 2:30 pm Discharge Diet: Usual diet Discharge Activity: Increase activity as tolerated Patient Instructions: Furosemide (By mouth), Hospice Care (GEN), Opioid Safety Discharge Attestations Time Spent in Discharge Care*: greater than 30 min Specific Discharge Activities: educating patient, discussing with bilingual case manager/social workers/dc planners and documenting/other paperwork Status at Discharge: Cognitive status at discharge: cognitively intact , Behavioral status at discharge: cooperative , Functional status at discharge: other assisted ambulation , Overall status at discharge: patient is not back to baseline Quality Metrics Clinical Quality Measures [ No reported AMI, CVA or VTE this stay] Coding Level of Care Code Acute Code for g Fwd Diagnoses Congestive heart failure I50.9 Ascites R18.8 Anasarca R60.1 Hyperbilirubinemia E80.6 Longstanding persistent atrial fibrillation I48.11 Atrial fibrillation type: longstanding persistent Diabetes mellitus E11.9 Erythema L53.9 Renal insufficiency N28.9
== END 2024-11-08 11:31 | disposition home or self-care (01) ==
LOC: ER 21:41 → MEDSURG 21:50
PROVIDERS: Admitting Provider Internal Medicine; Emergency Provider Emergency Medicine; PCP Nurse Practitioner Family; Visit Provider Hospitalist
DX: I13.0 Hypertensive heart and chronic kidney disease with heart failure and stage 1 through stage 4 chronic kidney disease, or unspecified chronic kidney disease (principal); I50.23 Acute on chronic systolic (congestive) heart failure; E11.22 Type 2 diabetes mellitus with diabetic chronic kidney disease; N18.9 Chronic kidney disease, unspecified; Z79.85 Long-term (current) use of injectable non-insulin antidiabetic drugs; Z79.84 Long term (current) use of oral hypoglycemic drugs; R18.8 Other ascites; G47.33 Obstructive sleep apnea (adult) (pediatric); E11.51 Type 2 diabetes mellitus with diabetic peripheral angiopathy without gangrene; Z95.0 Presence of cardiac pacemaker; E80.6 Other disorders of bilirubin metabolism; I48.11 Longstanding persistent atrial fibrillation; L53.9 Erythematous condition, unspecified; J44.9 Chronic obstructive pulmonary disease, unspecified
CPT/HCPCS: 36415; 36416; 49083; 51702; 71045; 76705; 80048; 80053; 80503; 81001; 82042; 82945; 82962; 83605; 83735; 83880; 83986; 84100; 84145; 84157; 84315; 84484; 85025; 85610; 87070; 87075; 87086; 87205; 89050; 93005; 93306; 94640; 96365; 96366; 96372; 96375; 96376; 99285; G0378; J1815; J1940

== ENCOUNTER 2024-12-08 16:18 | Emergency (ER) | payer MEDICARE, MEDICAID, SELFPAY ==
[2024-12-08 16:19] VITALS: BP 121/77; PULSE 85; RESP 20; TEMP 36.8; O2SAT 97; BMI 35.6
--- NOTE | 2024-12-08 16:22 | USR_ITS ---
PROCEDURE INFORMATION: Exam: US Duplex Left Upper Extremity Veins, Limited Exam date and time: 12/08/2024 5:11 PM Age: 84 years old Clinical indication: Swelling (edema) of limb; Upper extremity, left; Additional info: Arm swelling TECHNIQUE: Imaging protocol: Real-time duplex ultrasound of the left extremity with 2-D ayala scale, color Doppler flow and spectral waveform analysis including responses to compression and other maneuvers (when performed) with image documentation. Limited exam focused on the left upper extremity veins. COMPARISON: CT angio chest PE protcl [id number] 01/18/2023 2:17 AM FINDINGS: Left deep veins: Unremarkable. Axillary and brachial veins are patent throughout without thrombus. Normal Doppler waveforms. Normal compressibility and/or augmentation response. Visualized internal jugular and subclavian veins are patent. Superficial veins: Unremarkable. Visualized cephalic and basilic veins are patent without thrombus. Soft tissues: Unremarkable. US/[place] [id number] IMPRESSION: No evidence of deep vein thrombosis.
[2024-12-08 16:31] VITALS: BP 121/77; O2SAT 98
--- NOTE | 2024-12-08 16:34 | ED_ITS ---
HPI - Extremity Problem 2 General: Chief complaint: Extremity Injury, Upper Stated complaint: left arm swelling Time Seen by Provider: 12/08/24 16:18 Source: patient and EMS Mode of arrival: EMS Limitations: no limitations History of Present Illness: 84-year-old male has a history of severe CHF he is actually on hospice for his CHF states he started hospice roughly 4 weeks ago. Patient states that he is on 3 L oxygen at all times he states over the last week he has been having left arm swelling and redness he states he has been on antibiotics at home and it has had no improvement patient is here for evaluated of his left arm. He denies any pain or fevers Associated symptoms: Deny chest pain, fever(s) or rash Related Data Home Medications ?Medication ?Instructions ?Recorded ?Confirmed gabapentin 100 mg capsule 200 mg PO BID 01/18/2312/08 esomeprazole magnesium 40 mg 40 mg PO DAILY 11/07/24 0 12/08/24 capsule,delayed release isosorbide mononitrate 120 mg 120 mg PO DAILY 11/07/24 12/08/24 tablet,extended release 24 hr levocetirizine 5 mg tablet 5 mg PO QPM 11/07/24 metoprolol succinate 25 mg 25 mg PO DAILY 11/07/24 tablet,extended release 24 hr polysaccharide iron complex 150 mg 150 mg PO BID 11/0712/08/24 iron capsule (Ferrex) pravastatin 40 mg tablet 40 mg PO DAILY 11/07/2411/25 semaglutide 0.25 mg or 0.5 mg (2 0.5 mg SUBCUT Q7D 08/2112/08/24 mg/3 mL) subcutaneous pen injector (Ozempic) spironolactone 25 mg tablet See Rx Instructions .Route .COMPLEX 11/07/24 12/08/24 tamsulosin 0.4 mg capsule 0.4 mg PO DAILY 11/07/24 Previous Rx's ?Medication ?Instructions ?Recorded albuterol sulfate 0.63 mg/3 mL 0.63 mg (3 mL) inhalati on QID PRN 01/07/23 solution for nebulization shortness of breath or wheez ing #90 mL nitroglycerin 0.4 mg sublingual See Rx Instructions .R oute 05/02/24 tablet .COMPLEX #25 tabs furosemide 40 mg tablet (Lasix) 40 mg PO BID #60 tabs 11/08/24 Allergies Allergy/AdvReac Type Severity Reaction Status Date / Time methadone Allergy NA Verified 11/06/24 20:18 chlorthalidone AdvReac Severe nausea Verified 11/06/24 20:18 Review of Systems 2 Const: Denies: fever(s), chills, body aches or change in appetite ENMT: Denies: throat pain or dental pain Card: Denies: chest pain Resp: Reports: dyspnea GI: Denies: abdominal pain, nausea, vomiting or diarrhea Musc: Reports: extremity swelling; Denies: neck pain or back pain Skin/Breast: Denies: rash Neuro: Denies: headache(s) PFSH ED 2 PFSH: Medical History Pneumonia Shortness of breath COPD (chronic obstructive pulmonary disease) Uncontrolled type 2 DM with peripheral circulatory disorder Hx of diabetic foot ulcer Type 2 DM with CKD and hypertension Dizziness Encounter for long-term opiate analgesic use Atrial fibrillation Hypertension Pacemaker Hyperlipidemia Encounter for long-term opiate analgesic use Benign prostatic hyperplasia with incomplete bladder emptying Chronic cervical radiculopathy Chronic low back pain Chronic lumbar radiculopathy DDD (degenerative disc disease), lumbar Facet joint disease Long-term use of high-risk medication continue to monitor use Fibromyalgia Restless legs syndrome Surgical History History of permanent cardiac pacemaker placement History of umbilical hernia repair S/P cardiac pacemaker procedure S/P laser cataract surgery 2 YEARS AGO BILAT Family History Father , 80-house fire No problems noted. Mother , 70 Cancer Brother Cancer Lung disease Chronic kidney disease (CKD) Sister Cancer CAD (coronary artery disease) Diabetes Daughter Diabetes Family/Other Diabetes Denies family history of Clotting disorder Dementia Suicide Anesthesia complication Bleeding disorder Stroke Social History Smoking and tobacco/nicotine status: never used tobacco/nicotine Second hand smoke exposure: No Alcohol intake: never Substance/Drug Use: never Adopted: No Marital status: / Current occupational status: retired Physical Exam 2 Const: COMMON NORMALS: patient oriented x3 HENMT: COMMON NORMALS: normocephalic and atraumatic HEAD & SCALP: n ormocephalic and atraumatic Eye: COMMON NORMALS: Equal, round and reactive pupils present and EOMs intact bilaterally PUPIL: Yes Equal, round and reactive pupils present Neck/C-Spine: COMMON NORMALS: full ROM and supple Chest: COMMONS NORMALS: normal inspection of the chest Resp: COMMON NORMALS: No retractions and No use of accessory muscles Cardio: COMMON NORMALS: regular rate, regular rhythm and No murmurs present (Cardio) RATE: regular rate RHYTHM: regular rhythm GI: COMMON NORMALS: Normal to inspection, nondistended, normoactive bowel sounds present, Soft to palpation, non-tender and no masses PALPATION: Yes Soft to palpation Extremity: NARRATIVE EXTREMITY EXAM: Swelling noted to the left arm with edema with erythema to his wrist up to his bicep Neuro: COMMON NORMALS: patient oriented x3, moves all extremities and no focal motor deficits Psych: COMMON NORMALS: mental status grossly normal, Normal thought process present and cooperative THOUGHT PROCESS: Normal thought process present Skin: COMMON NORMALS: no rashes or lesions noted and no wounds GENERAL SKIN EXAM: no rashes or lesions noted Course 2 Vital Signs: Vital signs: Vital Signs Temperature 98.2 F 12/08/24 16:19 Pulse Rate 85 12/08/24 16:19 Respiratory Rate 20 H 12/08/24 16:19 Blood Pressure 121/77 12/08/24 16:31 Pulse Oximetry 98 12/08/24 16:31 Oxygen Delivery Me thod Nasal Cannula 12/08/24 16:19 Oxygen Flow Rate 3 12/08/24 16:19 MDM - Extremity (Nontraumatic) Medical Decision Making Patient presents here with swelling and erythema to his left arm this is likely a stasis dermatitis from swelling of his CHF did ultrasound showed no DVT inflammatory markers here are negative given a dose of vancomycin here he is on Cipro and Bactrim at home on hospice I feel he stable for discharge back home on hospice at this time return if worsening Medical Records I reviewed the patient's medical records. Lab Data I reviewed the patient's lab results. 12/08/24 16:30 12/08/24 16:30 Radiology Impressions Venous Duplex 12/08/24 16:22 IMPRESSION: No evidence of deep vein thrombosis. Chest X-Ray 12/08/24 16:41 IMPRESSION: Ill-defined bibasilar opacities, may reflect multifocal pneumonia. Laboratory Results WBC 10.15 10^3/uL (3.29-11.43) 12/08/24 16:30 RBC 5.13 10^6/uL (3.85-5.65) 12/08/24 16:30 Hgb 16.00 g/dL (11.27-16.99) 12/08/24 16:30 Hct 49.0 % (37-53) 12/08/24 16:30 MCV 95.5 fl (82-101) 12/08/24 16: MCH 31.2 pg (27-33) 12/08/24 16:30 MCHC 32.7 g/dL (30-55) 12/08/24 16:30 RDW 16.3 % (12.1-15.1) H 12/08/24 16:30 Plt Count 168 10^3/cmm (157-399) 12/08/24 16:30 MPV 10.7 fL (7.4-10.4) H 12/08/24 16:30 Neut % (Auto) 56.6 % 12/08/24 16:30 Lymph % (Auto) 24.7 % 12/08/24 16:30 [place] % (Auto) 12.2 % 12/08/24 16:30 Eos % (Auto) 5.0 % 12/08/24 16:30 Baso % (Auto) 1.0 % 12/08/24 16:30 Neut # (Auto) 5.74 10^3/uL (1.8-7.7) 12/08/24 16:30 Lymph # (Auto) 2.5 10^3/uL (0.8-4.8) 12/08/24 16:30 [place] # (Auto) 1.2 10^3/uL (0.2-0.9) H 12/08/24 16:30 Eos # (Auto) 0.5 10^3/uL (0.0-0.8) 12/08/24 16:30 Baso # (Auto) 0.1 10^3/uL (0.0-0.1) 12/08/24 16:30 Nucleated RBC % (auto) 0 % 12/08/24 16:30 Nucleated RBCs # 0.0 /100WBC 12/08/24 16:30 ESR 22 mm/hr (0-10) H 12/08/24 16:30 Sodium 129 mmol/L (136-145) L 12/08/24 16:30 Potassium 4.8 mmol/L (3.5-5.1) 12/08/24 16:30 Chloride 86 mmol/L (98-107) L 12/08/24 16:30 Carbon Dioxide 33 mmol/L (22-29) H 12/08/24 16:30 Anion Gap 14.8 (5-19) 12/08/24 16:30 BUN 25 mg/dL (8-23) H 12/08/24 16:30 Creatinine 1.7 mg/dL (0.7-1.2) H 12/08/24 16:30 GFR Calculation Not Reportable 12/08/24 16:30 Glucose 167 mg/dL (65-115) H 12/08/24 16:30 Calculated Osmolality 276 mOsm/kg (285-295) L 12/08/24 16:30 Calcium 8.9 mg/dL (8.5-10.5) 12/08/24 16:30 Total Bilirubin 1.6 mg/dL (0.15-1.2) H 12/08/24 16:30 AST 42 U/L (0-40) H 12/08/24 16:30 ALT 15 U/L (0-41) 12/08/24 16:30 Alkaline Phosphatase 104 U/L (40-130) 12/08/24 16:30 C-Reactive Protein 33.3 mg/L (0.0-4.9) H 12/08/24 16:30 NT-Pro-B Natriuret Pep 2628 pg/mL (0-450) H 12/08/24 16:30 Total Protein 7.0 g/dL (6.6-8.7) 12/08/24 16:30 Albumin 3.6 g/dL (3.5-5.2) 12/08/24 16:30 Globulin 3.4 g/dL (1.3-4.6) 12/08/24 16:30 All radiology interpretation(s) finalized by discharge Discharge Plan Discharge Patient Disposition: Home Clinical Impression: Arm swelling, Cellulitis Condition: Stable Prescriptions: No Action albuterol sulfate 0.63 mg/3 mL solution for nebulization 0.63 mg inhalation QID PRN (Reason: shortness of breath or wheezing) Qty: 90 1RF nitroglycerin 0.4 mg tablet, sublingual See Rx Instructions .ROUTE .COMPLEX Qty: 25 0RF Dose Instruction: DISSOLVE ONE TABLET UNDER THE TONGUE EVERY 5 MINUTES NEEDED FOR CHEST PAIN. Rx Instructions: DISSOLVE ONE TABLET UNDER THE TONGUE EVERY 5 MINUTES NEEDED FOR CHEST PAIN. gabapentin 100 mg capsule 200 mg PO BID polysaccharide iron complex [Ferrex 150] 150 mg iron capsule 150 mg PO BID spironolactone 25 mg tablet See Rx Instructions .ROUTE .COMPLEX Rx Instructions: TAKE 2 TABLETS BY MOUTH ONCE DAILY FOR 3 DAYS , THEN 1 TABLET DAILY THEREAFTER. esomeprazole magnesium 40 mg capsule,delayed release(DR/EC) 40 mg PO DAILY metoprolol succinate 25 mg tablet extended release 24 hr 25 mg PO DAILY levocetirizine 5 mg tablet 5 mg PO QPM Ozempic 0.25 mg or 0.5 mg (2 mg/3 mL) pen injector 0.5 mg SUBCUT Q7D Rx Instructions: on Wednesday pravastatin 40 mg tablet 40 mg PO DAILY isosorbide mononitrate 120 mg tablet extended release 24 hr 120 mg PO DAILY tamsulosin 0.4 mg capsule 0.4 mg PO DAILY furosemide [Lasix] 40 mg tablet 40 mg PO BID Qty: 60 0RF Discharge Orders: Discharge ED (Routine); Ordered 12/08/24 Ordered By: Ban Valentin Referrals: Tina Lipscomb NP [Primary Care Provider] - 4-7 days Discharge Diet: Advance as tolerated Discharge Activity: Resume usual activity Patient Instructions: Cellulitis (ED), Edema (ED) Print Language: Citizen Of [place] Coding Level of Care Code ED Cutting Tool Sharpener for Guerrero Menchaca
[2024-12-08 16:36] LABS: Basophils # 0.1 10^3/uL (0.0-0.1); Eosinophils # 0.5 10^3/uL (0.0-0.8); Lymphocytes # 2.5 10^3/uL (0.8-4.8); Lymphocytes % 24.7 %; Mean Corpuscular HGB Conc 32.7 g/dL (30-55); Mean Corpuscular Hemoglobin 31.2 pg (27-33); Mean Corpuscular Volume 95.5 fl (82-101); Mean Platelet Volume 10.7 fL (7.4-10.4); Monocytes # 1.2 10^3/uL (0.2-0.9); Monocytes % 12.2 %; Neutrophils # 5.74 10^3/uL (1.8-7.7); Neutrophils % 56.6 %; Nucleated Red Blood Cells % 0 %; Platelet Count 168 10^3/cmm (157-399); Red Blood Count 5.13 10^6/uL (3.85-5.65); Red Cell Distribution Width 16.3 % (12.1-15.1); White Blood Count 10.15 10^3/uL (3.29-11.43)
[2024-12-08 16:40] LABS: Erythrocyte Sedimentation Rate 22 mm/hr (0-10)
--- NOTE | 2024-12-08 16:41 | XRR_ITS ---
PROCEDURE INFORMATION: Exam: XR Chest Exam date and time: 12/08/2024 4:45 PM Age: 84 years old Clinical indication: Shortness of breath; Chest pain; SOB TECHNIQUE: Imaging protocol: Radiologic exam of the chest. Views: 1 view. COMPARISON: CR (CHEST, ) 11/06/2024 8:19 PM FINDINGS: Tubes, catheters and devices: Pacer device noted in the left chest wall. Lungs: Ill-defined bibasilar opacities. Pleural spaces: Unremarkable. No pleural effusion. No pneumothorax. Heart/Mediastinum: Unremarkable. No cardiomegaly. Bones/joints: Unremarkable. XR/XR chest 1V portable [id number] IMPRESSION: Ill-defined bibasilar opacities, may reflect multifocal pneumonia.
[2024-12-08] MEDS: VANCOMYCIN ADD-Vantage 1,000 MG in 0.9% NaCl ADD-Vantage 250 ML 250 MG IV (16:52)
[2024-12-08 17:11] LABS: Alanine Aminotransferase 15 U/L (0-41); Albumin Level 3.6 g/dL (3.5-5.2); Alkaline Phosphatase 104 U/L (40-130); Blood Urea Nitrogen 25 mg/dL (8-23); C Reactive Protein 33.3 mg/L (0.0-4.9); Calcium 8.9 mg/dL (8.5-10.5); Carbon Dioxide 33 mmol/L (22-29); Chloride 86 mmol/L (98-107); Creatinine Clr Calc Pharmacy 44.3461; Globulin 3.4 g/dL (1.3-4.6); Glucose 167 mg/dL (65-115); NT Pro B Type Natriuretic Pept 2628 pg/mL (0-450); Osmolality Calculated 276 mOsm/kg (285-295); Sodium 129 mmol/L (136-145); Total Bilirubin 1.6 mg/dL (0.15-1.2)
[2024-12-08 17:12] LABS: Anion Gap 14.8 (5-19); Aspartate Amino Transferase 42 U/L (0-40); Potassium 4.8 mmol/L (3.5-5.1)
[2024-12-08 18:34] VITALS: BP 121/77; PULSE 103; RESP 16; O2SAT 96
== END 2024-12-08 18:35 | disposition home or self-care (01) ==
PROVIDERS: Emergency Provider Emergency Medicine; PCP Nurse Practitioner Family
DX: L03.114 Cellulitis of left upper limb (principal); J44.9 Chronic obstructive pulmonary disease, unspecified; E78.5 Hyperlipidemia, unspecified; I10 Essential (primary) hypertension; Z95.0 Presence of cardiac pacemaker
CPT/HCPCS: 71045; 80053; 83880; 85025; 85651; 86140; 93971; 96374; 99284; J3370; J7050